=== PATIENT | female | born 1965 | race Caucasian/White ===

== ENCOUNTER → 2017-03-17 | Outpatient (CLI) | payer BC ==
[~2017-03-17] MED LIST: ASCA500 PO; CALC500C70 PO; CLC100X PO; OMEP40CA41 PO; PREG150C PO; PREG75CA PO; TOPI25TA55 PO; TOPI25TA99 PO; ULT/50 PO; VENL-271 PO
--- NOTE | 2017-03-18 08:21 | MAMMOGRAPHY REPORT ---
BILATERAL DIGITAL SCREENING MAMMOGRAM TOMOSYNTHESIS WITH CAD: 03/17/2017 CLINICAL HISTORY: Routine screening. Patient has no complaints. TECHNIQUE: Breast tomosynthesis in addition to standard 2D mammography was performed. Current study was also evaluated with a Computer Aided Detection (CAD) system. COMPARISON: Comparison is made to exams dated: 03/14/2016 mammogram, 03/13/2015 mammogram, 02/09/2014 amanda mogram, 03/29/2013 mammogram, 03/25/2012 mammogram, and 03/25/2011 mammogram - [facility]. BREAST COMPOSITION: There are scattered areas of fibroglandular density in both breasts. FINDINGS: There are a few benign-appearing punctate microcalcifications in the breasts. No suspiciou s mass, architectural distortion or cluster of suspicious microcalcifications is seen. IMPRESSION: ACR BI-RADS CATEGORY 1: NEGATIVE There is no mammographic evidence of malignancy. A 1 year screening mammogram is recommended. The pa tient will receive written notification of the results. Approximately 10% of breast cancers are not detected with mammography. A negative mammographic report should not delay biopsy if a clinically suggestive mass is present. Devi Ash M.D. ay/:03/17/2017 17:58:29 Apprentice Electrician: Roseanne MAX(Alley)(M), [facility] letter sent: Normal 1/2 BI-RADS Code: ACR BI-RADS Category 1: Negative
== END | disposition home or self-care (01) ==
LOC: C.MAMM 13:52
PROVIDERS: ATTEND Nurse Practitioner Adult Health
DX: Z12.31 Encounter for screening mammogram for malignant neoplasm of breast (principal)

== ENCOUNTER → 2017-04-10 | Outpatient (CLI) | payer BC ==
[2017-04-10 14:37] LABS: BASO % 0.1 %; BASO ABS # 0.01 K/uL (0-0.2); COMPLETE YES; EOS % 0.5 %; HEMATOCRIT 40.3 % (37-47); IG% 0.1 %; LYMPH % 38.8 %; LYMPH ABS # 2.87 K/uL (1.2-3.4); MEAN CELL VOLUME 89.6 fL (80-100); MEAN CORPUSCULAR HEMOGLOBIN 29.3 pg (25-34); MEAN CORPUSCULAR HGB CONC 32.8 g/dl (32-36); MEAN PLATELET VOLUME 11.6 fL (7.4-10.4); MONO % 7.2 %; NEUT % 53.3 %; PLATELET COUNT 256 K/uL (130-400); WHITE BLOOD COUNT 7.39 K/uL (4.8-10.8)
[2017-04-10 15:03] LABS: ALT/SGPT 17 U/L (12-78); BLOOD UREA NITROGEN 15 mg/dl (7-18); BUN/CREATININE RATIO 18.5 (10-20); CALCIUM 9.2 mg/dl (8.5-10.1); CARBON DIOXIDE 28 mmol/L (21-32); CHLORIDE 107 mmol/L (98-107); CREATININE 0.79 mg/dl (0.60-1.20); GLUCOSE 77 mg/dl (70-99); POTASSIUM 4.3 mmol/L (3.5-5.1); SODIUM 141 mmol/L (136-145)
[2017-04-10 15:06] LABS: ALB/GLOB RATIO 0.9 (0.9-2); ALKALINE PHOSPHATASE 79 U/L (45-117); AST/SGOT 12 U/L (15-37)
== END | disposition home or self-care (01) ==
LOC: C.LAB 12:40
PROVIDERS: ATTEND Physician Assistant
DX: R53.83 Other fatigue (principal); E55.9 Vitamin D deficiency, unspecified

== ENCOUNTER → 2017-06-10 | Outpatient (CLI) | payer BC ==
[2017-06-10 12:47] LABS: TOTAL IRON BINDING CAPACITY 246 mcg/dl (250-450)
[2017-06-10 13:49] LABS: LYME DISEASE AB IGM NEG (NEG)
[2017-06-10 13:52] LABS: LYME DISEASE AB IGG NEG (NEG)
[2017-06-14 23:12] LABS: ACETYLCHOLINE RECEP MODULATING 11; ACETYLCHOLINE RECEPT BLOCKING <15 % inhibit (<15); ANTI-CENTROMERE AB <1.0 NEG AI (<1.0 NEG); ANTI-SS-A 3.8 POS AI (<1.0 NEG); ANTI-SS-B <1.0 NEG AI (<1.0 NEG); DNA ds CRITHIDIA NEGATIVE (NEGATIVE); MICROSOMAL AB 1 IU/ML (<9); RECEPTOR BINDING AB <0.30 nmol/L (<=0.30); Sm Antibody <1.0 NEG AI (<1.0 NEG)
== END | disposition home or self-care (01) ==
LOC: C.LAB 11:38
PROVIDERS: ATTEND Psychiatry & Neurology Neurology
DX: M79.7 Fibromyalgia (principal); R53.83 Other fatigue; M62.81 Muscle weakness (generalized)

== ENCOUNTER 2023-04-21 15:23 | Observation (INO) ==
--- NOTE | 2023-04-21 15:51 | Emergency Department Note ---
Impression & Plan Stroke-like symptom, Acute right-sided muscle weakness ED Provider Note NAME: TOBIN SANCHEZ AGE: 58 SEX: F : 1965 ARRIVES VIA: Walk-In INFORMANT: Patient, ED PROVIDER(S): Isaac Martinez DO CHIEF COMPLAINT: Strokelike symptoms HPI: The patient is a 58-year-old female who presented to the emergency department for an evaluation of strokelike symptoms. The patient started noticing symptoms of right-sided weakness over the course of the last week. Initially the symptoms were intermittent but they have since become constant. The patient went to see her family doctor today and was sent to the emergency department. The patient denies having any chest pain or difficulty breathing. She did note some right lower quadrant abdominal pain prior to coming to the emergency department. The patient has a history of migraine and at times has had right-sided weakness with migraine but at this time she denies having any significant headache. She has been compliant with her outpatient medications. She does not take any blood thinners. ROS: See above HPI for pertinent positives & negatives. A total of 10 systems reviewed and were otherwise negative. PAST MEDICAL HISTORY: See Below PAST SURGICAL HISTORY: See Below FAMILY HISTORY: See Below SOCIAL HISTORY: See Below HOME MEDICATIONS: See Below ALLERGIES: See Below VITALS: See Below PHYSICAL EXAMINATION: GENERAL: Patient is awake alert in no acute distress patient is resting comfortably and showing no signs of anxiety EYES: The conjunctivae are clear. The pupils are round and reactive. EARS, NOSE, MOUTH AND THROAT: The nose is without any evidence of any deformity. NECK: The neck is nontender and supple. RESPIRATORY: Normal respiratory effort is noted there is no evidence of wheezing rhonchi or rales CARDIOVASCULAR: Regular rate and rhythm noted there no murmurs rubs or gallops normal S1 normal S2. GASTROINTESTINAL: The abdomen is soft. There is right lower quadrant tenderness to palpation which is moderate. MUSCULOSKELETAL/EXTREMITIES: There is no evidence of gross deformity full range of motion is noted in the hips and shoulders. SKIN: There is no obvious evidence of any rash. There are no petechiae, pallor or cyanosis noted. NEUROLOGIC: Patient is awake alert and oriented x3. 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 There was a drift noted in the right upper extremity. The patient is able to hold the left leg off the bed for greater than 5 seconds however the right leg drops to the bed after only 2 to 3 seconds. There is no facial droop. Speech was clear. MEDICAL DECISION MAKING: The patient is a 58-year-old female who presented to the emergency department for an evaluation of right-sided weakness. The patient has a history of migraine headache and has had right-sided weakness associated with migraine in the past however today she has no headache but has ongoing right-sided weakness since yesterday afternoon. The patient presented to the emergency department at the request of her primary care physician. She has reproducible right-sided weakness on my exam. I discussed patient's laboratory and radiographic studies with her. She also had abdominal pain for this reason further radiographic studies were obtained. Given the patient's findings and ongoing symptoms I discussed her condition [facility]. The patient may require further work-up or possibly evaluation by neurology to further evaluate cause your symptoms. Triage Nursing notes reviewed. Prior medical records reviewed Vital Signs: reviewed and remarkable for elevated blood pressure. Differential diagnosis: Infection, dehydration, metabolic abnormality, hypo/hyperglycemia, electrolyte disturbance, anemia, hypoxia, cardiac sources, intracerebral event, toxicologic, neurologic, as well as other pathologies. ER treatment provided: See below Diagnostics interpreted by me: ECG: EKG was obtained in the emergency department. My interpretation is normal sinus rhythm at 80 bpm. There is no ectopy. There is no acute ST segment abnormalities noted. LVH was suggested by voltage criteria. This was compared to a tracing from January 22, 2019. No changes were noted. Cardiac Monitoring: An order was placed for continuous cardiac monitoring. The monitor shows a rate of 75 bpm with sinus rhythm. Laboratory studies: As stated above and show below. Imaging studies: See below. Radiographic imaging was reviewed by myself Consultation(s): I discussed this case with Kari who is on-call for the [facility]. Past Med/Surg History Medical History (Updated 04/21/23 @ 21:27 by Isaac Martinez DO) Abnormal laboratory test result Basilar artery migraine Cervical radiculopathy at C8 Chronic migraine without aura Depression with anxiety Fatigue Fibromyalgia GERD (gastroesophageal reflux disease) Memory loss Migraine Muscle weakness Pain in extremity Sacral radiculopathy Vitamin D deficiency Surgical History H/O Spinal surgery History of total hysterectomy Hx of tonsillectomy Family History Other Breast cancer Heart disease Social History Smoking Status: Never smoker Hx Alcohol Use: No Hx Substance Use: No Preferred Language: Puerto [place]ican Communication Ability: Effective Environmental Compliance Officer Required: No Beliefs That Will Affect Care: None Current Living Situation: Spouse Current Living Situation Comment: Lives with and son Other Information That Helps Us Care for You: No Feels Safe at Home: Yes Safety Concerns: Feels Safe At This Time Assistive Devices: None Allergies Allergies Allergy/AdvReac Type Severity Reaction Status Date / Time milnacipran Allergy Unknown UNKNOWN Verified 04/21/23 17:16 morphine Allergy Unknown unknown Verified 04/21/23 17:16 codeine AdvReac Mild NAUSEA/VOMI Verified 04/21/23 17:16 TING Home Meds Home Medications Medication Instructions Recorded Confirmed omeprazole 40 mg capsule,delayed 40 mg PO DAILY 01/22/19 04/21/23 release pregabalin 225 mg capsule (Lyrica) 225 mg PO BID 01/22/19 04/21/23 ascorbate calcium-bioflavonoid 500 1 tab PO DAILY 04/28/19 04/21/23 mg-200 mg tablet (Federica-C with Bioflavonoids) calcium carbonate 500 mg-vitamin 1 tab PO BID 05/04/19 04/21/23 D3 5 mcg (200 unit) tablet (Os-Jose Daniel 500 + D3) baclofen 20 mg tablet 10 mg PO HS 04/21/23 04/21/23 docusate sodium 100 mg capsule 100 mg PO DAILY PRN Constipation 04/21/23 04/21/23 (Colace) indomethacin 50 mg capsule 50 mg PO DAILY PRN Migraine 04/21/23 04/21/23 Headache Previous Rx's Medication Instructions Recorded venlafaxine 150 mg See Rx Instructions .Route 11/03/19 capsule,extended release 24 hr .COMPLEX #90 caps Results & Data (ED) Vital Signs Vital Signs - 24 hr 04/21/23 15:24 04/21/23 15:40 04/21/23 15:40 Temperature 36.8 C Temperature Source Temporal Artery Scan Pulse Rate 85 79 Pulse Rate [Bilateral] 83 Pulse Rhythm [Bilateral] Regular Respiratory Rate 16 18 Blood Pressure 129/84 Blood Pressure [Left Arm] 147/102 H Blood Pressure Mean 99 Blood Pressure Mean [Left Arm] 117 Pulse Oximetry 98 100 100 Oxygen Delivery Method Room Air Room Air Room Air Sepsis Recent Fever Within 48 Hours No Sepsis New/Unexplained Change in Mental Status N/A Sepsis Action Taken by Nursing No Action Required 04/21/23 15:48 04/21/23 17:23 Temperature Temperature Source Pulse Rate 76 Pulse Rate [Bilateral] 65 Pulse Rhythm [Bilateral] Regular Respiratory Rate 12 Blood Pressure Blood Pressure [Left Arm] 142/93 H Blood Pressure Mean Blood Pressure Mean [Left Arm] 109 Pulse Oximetry 99 Oxygen Delivery Method Sepsis Recent Fever Within 48 Hours Sepsis New/Unexplained Change in Mental Status Sepsis Action Taken by Custodial Medications Current Medication List: was personally reviewed by me Laboratory Data Attestation: I reviewed the patient's lab results. 04/21/23 15:39 04/21/23 15:39 Lab Results 04/21/23 04/21/23 04/21/23 Range/Units 15:39 15:39 15:39 WBC 7.93 (4.8-10.8) K/ul RBC 4.64 (4.20-5.40) M/uL Hgb 13.7 (12.0-16.0) g/dl POC Hgb (12.0-16.0) g/dl Hct 41.3 (37.0-47.0) % POC Hct (37-47) % MCV 89.0 (80.0-100.0) fL MCH 29.5 (25.0-34.0) pg MCHC 33.2 (32.0-36.0) g/dL RDW Std Deviation 39.5 (36.4-46.3) fL RDW Coeff of Delmi 12.1 (11.5-14.5) % Plt Count 246 (130-400) K/uL MPV 11.9 (9.4-12.4) fL PT 10.8 (9.0-12.0) Seconds INR 1.0 (0.9-1.1) APTT 27.9 (21.0-31.0) Seconds PTT Ratio 1.0 POC Sodium (135-144) mmol/L Sodium 139 (136-145) mmol/L POC Potassium (3.3-5.0) mmol/L Potassium 4.0 (3.5-5.1) mmol/L POC Chloride (101-112) mmol/L Chloride 103 (98-107) mmol/L Carbon Dioxide 30 (21-32) mmol/L POC Total CO2 (24-31) mmol/L Anion Gap 6 (3-11) POC Anion Gap (16-25) mmol/L POC BUN (7-18) mg/dl BUN 18 (6-23) mg/dl Creatinine 0.81 (0.6-1.2) mg/dl POC Creatinine (0.6-1.3) mg/dl Est Cr Clr Drug Dosing 77.9 ml/min Est GFR ( Amer) 93.4 ml/min Est GFR (Non-Af Amer) 80.6 ml/min BUN/Creatinine Ratio 22.2 H (10-20) Glucose 92 (70-99(Fasting)) mg/dl POC Glucose (other) (70-99) mg/dl Calcium 9.2 (8.6-10.3) mg/dl POC Ioniz Calcium Marco (1.12-1.32) mmol/l Magnesium 2.2 (1.7-2.4) mg/dl Total Bilirubin 0.4 (0.2-1.0) mg/dl AST 16 (13-39) U/L ALT 10 (7-52) U/L Alkaline Phosphatase 70 (34-104) U/L Total Protein 7.8 (6.0-8.3) gm/dl Albumin 4.2 (3.4-5.0) gm/dl Globulin 3.6 (2.5-4.0) gm/dl Albumin/Globulin Ratio 1.2 (0.9-2) SARS-CoV-2, RNA, NAAT (NEGATIVE) 04/21/23 04/21/23 Range/Units 16:03 17:30 WBC (4.8-10.8) K/ul RBC (4.20-5.40) M/uL Hgb (12.0-16.0) g/dl POC Hgb 13.6 (12.0-16.0) g/dl Hct (37.0-47.0) % POC Hct 40 (37-47) % MCV (80.0-100.0) fL MCH (25.0-34.0) pg MCHC (32.0-36.0) g/dL RDW Std Deviation (36.4-46.3) fL RDW Coeff of Delmi (11.5-14.5) % Plt Count (130-400) K/uL MPV (9.4-12.4) fL PT (9.0-12.0) Seconds INR (0.9-1.1) APTT (21.0-31.0) Seconds PTT Ratio POC Sodium 139 (135-144) mmol/L Sodium (136-145) mmol/L POC Potassium 4.1 (3.3-5.0) mmol/L Potassium (3.5-5.1) mmol/L POC Chloride 101 (101-112) mmol/L Chloride (98-107) mmol/L Carbon Dioxide (21-32) mmol/L POC Total CO2 28 (24-31) mmol/L Anion Gap (3-11) POC Anion Gap 14.0 L (16-25) mmol/L POC BUN 17 (7-18) mg/dl BUN (6-23) mg/dl Creatinine (0.6-1.2) mg/dl POC Creatinine 0.8 (0.6-1.3) mg/dl Est Cr Clr Drug Dosing ml/min Est GFR ( Amer) ml/min Est GFR (Non-Af Amer) ml/min BUN/Creatinine Ratio (10-20) Glucose (70-99(Fasting)) mg/dl POC Glucose (other) 95 (70-99) mg/dl Calcium (8.6-10.3) mg/dl POC Ioniz Calcium Marco 1.17 (1.12-1.32) mmol/l Magnesium (1.7-2.4) mg/dl Total Bilirubin (0.2-1.0) mg/dl AST (13-39) U/L ALT (7-52) U/L Alkaline Phosphatase (34-104) U/L Total Protein (6.0-8.3) gm/dl Albumin (3.4-5.0) gm/dl Globulin (2.5-4.0) gm/dl Albumin/Globulin Ratio (0.9-2) SARS-CoV-2, RNA, NAAT NEGATIVE (NEGATIVE) Administered Medications Discontinued Medications Ioversol (Optiray 320 125ml) 118 ml IV ONCE ONE Stop: 04/21/23 16:30 Last Admin: 04/21/23 16:29 Dose: 118 ml Documented By: NESHA Imaging Data Attestation: I personally reviewed and interpreted this imaging study as follows: My Impression: CT of the brain without contrast was obtained in the emergency department. My interpretation is no intracranial hemorrhage or mass effect, final report below. Radiologist's Impression: Head CT 04/21/23 15:[address] OF THE BRAIN; CT ANGIOGRAM OF THE BRAIN; CT ANGIOGRAM OF THE NECK CLINICAL HISTORY: Neurological deficit. Stroke like symptoms. COMPARISON STUDY: CT angiogram of the head and neck dated 01/22/2019. TECHNIQUE: Unenhanced axial CT scan of the brain is performed. Subsequently, following the IV administration of 118 of Optiray 320, CT angiogram of the head and neck was performed from the aortic arch to the vertex. Images are reviewed in the axial, sagittal, and coronal planes. 3-D MIPS images are created and assessed. IV contrast was administered without complication. All measurements were calculated based on NASCET criteria. A dose lowering technique was utilized adhering to the principles of ALARA. CT DOSE: 2944.78 mGy.cm FINDINGS: Brain parenchyma: The brain parenchyma is normal in appearance. There is no hemorrhage, mass effect, or evidence of acute territorial ischemia by CT criteria. There is no evidence of enhancing mass lesion on the angiogram phase images. The ventricles, sulci, and cisterns are normal in configuration. Rodriguez-white matter differentiation is preserved. No extra-axial fluid collection is seen. Thoracic aorta: Visualized portions of the thoracic aorta are normal in caliber. The aortic arch demonstrates standard 3-vessel anatomy. Right carotid arterial system: The right common carotid artery is widely patent, as are the right internal and external carotid arteries. There is tortuosity of the distal ICA. Left carotid arterial system: The left common carotid artery is widely patent, as are the left internal and external carotid arteries. Vertebral arteries: The vertebral arteries are widely patent bilaterally and codominant. Subclavian arteries: Widely patent bilaterally. Intracranial vasculature: The internal carotid arteries are patent at the skull base, as are the anterior and middle cerebral arteries bilaterally. The vertebrobasilar system and posterior cerebral arteries are widely patent. The vertebral arteries are codominant. There is no aneurysm, high-grade stenosis, or focal vessel cut off seen throughout the intracranial circulation. Jugular veins: Patent bilaterally. Dural sinuses: Patent. Lung apices: Partially visualized upper lobe lung parenchyma appears clear. Soft tissues: The visualized pharyngeal soft tissues are normal in appearance noting angiographic phase technique. The oropharyngeal airway appears widely patent. The thyroid gland is mildly enlarged and heterogeneous. The salivary glands are normal in appearance. No cervical lymphadenopathy is seen. Skeletal structures: The calvarium appears intact. The cervical spine is within normal limits. Orbits: The bony orbits are intact. Orbital contents are normal as visualized. Sinuses and mastoids: The paranasal sinuses are clear. The mastoid air cells are well pneumatized. IMPRESSION: 1. There is no hemorrhage, mass effect, or evidence of acute territorial ischemia by CT criteria. 2. Unremarkable CT angiogram of the brain. 3. Unremarkable CT angiogram of the neck. ACT 112: Negative or not required by law. Electronically signed by: Mirza Comer M.D. 04/21/2023 5:02 PM Abdomen/Pelvis CT 04/21/23 15:46 CT SCAN OF THE ABDOMEN AND PELVIS WITH IV CONTRAST CLINICAL HISTORY: Right lower quadrant abdominal pain. COMPARISON STUDY: No priors. TECHNIQUE: Following the IV administration of 118 cc of Optiray 320, CT scan of the abdomen and pelvis is performed from the lung bases to the proximal femora. Images are reviewed in the axial, sagittal, and coronal planes. IV contrast was administered without complication. A dose lowering technique was utilized adhering to the principles of ALARA. FINDINGS: Lung bases: The heart is normal in size and without pericardial effusion. The lung bases are clear. Liver: The contrast-enhanced liver is normal in size, contour, and attenuation. There is no intrahepatic biliary ductal dilatation. The hepatic veins and portal veins are patent. Gallbladder: Adenomyomatosis is suggested in the fundal region. The gallbladder is otherwise normal as imaged. Spleen: Normal in size and attenuation. Pancreas: Unremarkable. Adrenal glands: Unremarkable. Kidneys: The contrast enhanced kidneys are normal in size and without hydronephrosis. The kidneys enhance symmetrically. Abdominal vasculature: The abdominal aorta is normal in course and caliber. Bowel: There is moderate colonic fecal retention. No bowel obstruction is seen. The appendix is well-visualized and normal. Peritoneum: There is no intraperitoneal free air or abdominal ascites. Lymphadenopathy: None. Pelvic viscera: The bladder is normal as visualized. The uterus is surgically absent. No adnexal lesion is seen. Skeletal structures: A large hemangioma is seen in the body of L2. Postsurgical change is noted at the lumbosacral junction. No lytic or blastic lesions are seen. IMPRESSION: No acute infectious or inflammatory findings are identified in the abdomen or pelvis. ACT 112: Negative or not required by law. Electronically signed by: Mirza Comer M.D. 04/21/2023 5:05 PM Chest CTA 04/21/23 15:46 CT ANGIOGRAPHY OF THE CHEST, PULMONARY EMBOLUS PROTOCOL CLINICAL HISTORY: Atypical chest pain. Evaluate for pulmonary embolus. COMPARISON STUDY: Chest radiograph January 22, 2019. TECHNIQUE: Following IV administration of 118 mL of Optiray, helical axial images of the chest were obtained utilizing the pulmonary embolus protocol. Maximal intensity projections and sagittal and coronal reformats were viewed on an independent 3D workstation. IV contrast was administered without complication. Automated exposure control was utilized for the study. A dose lowering technique was utilized adhering to the principles of ALARA. FINDINGS: No pulmonary emboli are identified. There is no thoracic aortic dissection. Size of the heart is normal. There is no pericardial effusion. No enlarged thoracic lymph nodes are present. No pneumothorax or pleural effusion present. There is no consolidation to suggest pneumonia. There are no suspicious pulmonary nodules. No acute fractures are identified within the visualized bony thorax. The abdomen and pelvis CT will be reported separately. IMPRESSION: 1. No pulmonary emboli identified. 2. No acute intrathoracic findings. ACT 112: Negative or not required by law. Electronically signed by: Tommie Jean-Baptiste M.D. 04/21/2023 5:03 PM Head CTA 04/21/23 15:[address] OF THE BRAIN; CT ANGIOGRAM OF THE BRAIN; CT ANGIOGRAM OF THE NECK CLINICAL HISTORY: Neurological deficit. Stroke like symptoms. COMPARISON STUDY: CT angiogram of the head and neck dated 01/22/2019. TECHNIQUE: Unenhanced axial CT scan of the brain is performed. Subsequently, following the IV administration of 118 of Optiray 320, CT angiogram of the head and neck was performed from the aortic arch to the vertex. Images are reviewed in the axial, sagittal, and coronal planes. 3-D MIPS images are created and assessed. IV contrast was administered without complication. All measurements were calculated based on NASCET criteria. A dose lowering technique was utilized adhering to the principles of ALARA. CT DOSE: 2944.78 mGy.cm FINDINGS: Brain parenchyma: The brain parenchyma is normal in appearance. There is no hemorrhage, mass effect, or evidence of acute territorial ischemia by CT criteria. There is no evidence of enhancing mass lesion on the angiogram phase images. The ventricles, sulci, and cisterns are normal in configuration. Rodriguez- white matter differentiation is preserved. No extra-axial fluid collection is seen. Thoracic aorta: Visualized portions of the thoracic aorta are normal in caliber. The aortic arch demonstrates standard 3-vessel anatomy. Right carotid arterial system: The right common carotid artery is widely patent, as are the right internal and external carotid arteries. There is tortuosity of the distal ICA. Left carotid arterial system: The left common carotid artery is widely patent, as are the left internal and external carotid arteries. Vertebral arteries: The vertebral arteries are widely patent bilaterally and codominant. Subclavian arteries: Widely patent bilaterally. Intracranial vasculature: The internal carotid arteries are patent at the skull base, as are the anterior and middle cerebral arteries bilaterally. The vertebrobasilar system and posterior cerebral arteries are widely patent. The vertebral arteries are codominant. There is no aneurysm, high-grade stenosis, or focal vessel cut off seen throughout the intracranial circulation. Jugular veins: Patent bilaterally. Dural sinuses: Patent. Lung apices: Partially visualized upper lobe lung parenchyma appears clear. Soft tissues: The visualized pharyngeal soft tissues are normal in appearance noting angiographic phase technique. The oropharyngeal airway appears widely patent. The thyroid gland is mildly enlarged and heterogeneous. The salivary glands are normal in appearance. No cervical lymphadenopathy is seen. Skeletal structures: The calvarium appears intact. The cervical spine is within normal limits. Orbits: The bony orbits are intact. Orbital contents are normal as visualized. Sinuses and mastoids: The paranasal sinuses are clear. The mastoid air cells are well pneumatized. IMPRESSION: 1. There is no hemorrhage, mass effect, or evidence of acute territorial ischemia by CT criteria. 2. Unremarkable CT angiogram of the brain. 3. Unremarkable CT angiogram of the neck. ACT 112: Negative or not required by law. Electronically signed by: Mirza Comer M.D. 04/21/2023 5:02 PM Neck CTA 04/21/23 15:[address] OF THE BRAIN; CT ANGIOGRAM OF THE BRAIN; CT ANGIOGRAM OF THE NECK CLINICAL HISTORY: Neurological deficit. Stroke like symptoms. COMPARISON STUDY: CT angiogram of the head and neck dated 01/22/2019. TECHNIQUE: Unenhanced axial CT scan of the brain is performed. Subsequently, following the IV administration of 118 of Optiray 320, CT angiogram of the head and neck was performed from the aortic arch to the vertex. Images are reviewed in the axial, sagittal, and coronal planes. 3-D MIPS images are created and assessed. IV contrast was administered without complication. All measurements were calculated based on NASCET criteria. A dose lowering technique was utilized adhering to the principles of ALARA. CT DOSE: 2944.78 mGy.cm FINDINGS: Brain parenchyma: The brain parenchyma is normal in appearance. There is no hemorrhage, mass effect, or evidence of acute territorial ischemia by CT criteria. There is no evidence of enhancing mass lesion on the angiogram phase images. The ventricles, sulci, and cisterns are normal in configuration. Rodriguez- white matter differentiation is preserved. No extra-axial fluid collection is seen. Thoracic aorta: Visualized portions of the thoracic aorta are normal in caliber. The aortic arch demonstrates standard 3-vessel anatomy. Right carotid arterial system: The right common carotid artery is widely patent, as are the right internal and external carotid arteries. There is tortuosity of the distal ICA. Left carotid arterial system: The left common carotid artery is widely patent, as are the left internal and external carotid arteries. Vertebral arteries: The vertebral arteries are widely patent bilaterally and codominant. Subclavian arteries: Widely patent bilaterally. Intracranial vasculature: The internal carotid arteries are patent at the skull base, as are the anterior and middle cerebral arteries bilaterally. The vertebrobasilar system and posterior cerebral arteries are widely patent. The vertebral arteries are codominant. There is no aneurysm, high-grade stenosis, or focal vessel cut off seen throughout the intracranial circulation. Jugular veins: Patent bilaterally. Dural sinuses: Patent. Lung apices: Partially visualized upper lobe lung parenchyma appears clear. Soft tissues: The visualized pharyngeal soft tissues are normal in appearance noting angiographic phase technique. The oropharyngeal airway appears widely patent. The thyroid gland is mildly enlarged and heterogeneous. The salivary glands are normal in appearance. No cervical lymphadenopathy is seen. Skeletal structures: The calvarium appears intact. The cervical spine is within normal limits. Orbits: The bony orbits are intact. Orbital contents are normal as visualized. Sinuses and mastoids: The paranasal sinuses are clear. The mastoid air cells are well pneumatized. IMPRESSION: 1. There is no hemorrhage, mass effect, or evidence of acute territorial ischemia by CT criteria. 2. Unremarkable CT angiogram of the brain. 3. Unremarkable CT angiogram of the neck. ACT 112: Negative or not required by law. Electronically signed by: Mirza Comer M.D. 04/21/2023 5:02 PM Discharge Plan Visit Data Chief Complaint: TIA Symptoms Stated Complaint: WEAKNESS IN RIGHT SIDE, DIZZY, ED Provider: Isaac Martinez Discharge Problem: Stroke-like symptom, Acute right-sided muscle weakness Patient Disposition: Admitted As Inpatient Discharge Instructions Interventions: ED Discharge Assessment Last Done: 04/21/23 19:30
[2023-04-21 16:01] LABS: Hematocrit (blood only) 41.3 % (37.0-47.0); Hemoglobin 13.7 g/dl (12.0-16.0); Mean Corpuscular Hemoglobin 29.5 pg (25.0-34.0); Mean Corpuscular Hgb Conc 33.2 g/dL (32.0-36.0); Mean Platelet Volume 11.9 fL (9.4-12.4); Platelet Count 246 K/uL (130-400); RDW Coefficient of Variation 12.1 % (11.5-14.5); RDW Standard Deviation 39.5 fL (36.4-46.3); Red Blood Count 4.64 M/uL (4.20-5.40); White Blood Count 7.93 K/ul (4.8-10.8)
[2023-04-21 16:15] LABS: iSTAT Creatinine 0.8 mg/dl (0.6-1.3); iSTAT Hemoglobin 13.6 g/dl (12.0-16.0); iSTAT Ionized Calcium 1.17 mmol/l (1.12-1.32); iSTAT Potassium 4.1 mmol/L (3.3-5.0)
[2023-04-21 16:20] LABS: Albumin Globulin Ratio 1.2 (0.9-2); Albumin Level 4.2 gm/dl (3.4-5.0); BUN Creatinine Ratio 22.2 (10-20); Bilirubin,Total 0.4 mg/dl (0.2-1.0); Calcium 9.2 mg/dl (8.6-10.3); Creatinine Clr Calc Pharmacy 77.9 ml/min; Est GFR (African American) 93.4 ml/min; Est GFR (Non-African American) 80.6 ml/min; Globulin 3.6 gm/dl (2.5-4.0); Magnesium 2.2 mg/dl (1.7-2.4); Total Protein 7.8 gm/dl (6.0-8.3)
[2023-04-21] MEDS ORDERED: OPTIRAY 320 125ml IV ONE (16:29)
[2023-04-21 16:33] LABS: Partial Thromboplastin Time 27.9 Seconds (21.0-31.0); Prothrombin Time 10.8 Seconds (9.0-12.0)
--- NOTE | 2023-04-21 17:04 | CT Scan Report ---
UNENHANCED CT OF THE BRAIN; CT ANGIOGRAM OF THE BRAIN; CT ANGIOGRAM OF THE NECK CLINICAL HISTORY: Neurological deficit. Stroke like symptoms. COMPARISON STUDY: CT angiogram of the head and neck dated 01/22/2019. TECHNIQUE: Unenhanced axial CT scan of the brain is performed. Subsequently, following the IV adminis tration of 118 of Optiray 320, CT angiogram of the head and neck was performed from the aortic arch t o the vertex. Images are reviewed in the axial, sagittal, and coronal planes. 3-D MIPS images are cre ated and assessed. IV contrast was administered without complication. All measurements were calculate d based on NASCET criteria. A dose lowering technique was utilized adhering to the principles of ALA RA. CT DOSE: 2944.78 mGy.cm FINDINGS: Brain parenchyma: The brain parenchyma is normal in appearance. There is no hemorrhage, mass effect, or evidence of acute territorial ischemia by CT criteria. There is no evidence of enhancing mass lesi on on the angiogram phase images. The ventricles, sulci, and cisterns are normal in configuration. Gr ay-white matter differentiation is preserved. No extra-axial fluid collection is seen. Thoracic aorta: Visualized portions of the thoracic aorta are normal in caliber. The aortic arch demo nstrates standard 3-vessel anatomy. Right carotid arterial system: The right common carotid artery is widely patent, as are the right int ernal and external carotid arteries. There is tortuosity of the distal ICA. Left carotid arterial system: The left common carotid artery is widely patent, as are the left international trade manager al and external carotid arteries. Vertebral arteries: The vertebral arteries are widely patent bilaterally and codominant. Subclavian arteries: Widely patent bilaterally. Intracranial vasculature: The internal carotid arteries are patent at the skull base, as are the ante rior and middle cerebral arteries bilaterally. The vertebrobasilar system and posterior cerebral karolina marck are widely patent. The vertebral arteries are codominant. There is no aneurysm, high-grade steno sis, or focal vessel cut off seen throughout the intracranial circulation. Jugular veins: Patent bilaterally. Dural sinuses: Patent. Lung apices: Partially visualized upper lobe lung parenchyma appears clear. Soft tissues: The visualized pharyngeal soft tissues are normal in appearance noting angiographic pha se technique. The oropharyngeal airway appears widely patent. The thyroid gland is mildly enlarged an d heterogeneous. The salivary glands are normal in appearance. No cervical lymphadenopathy is seen. Skeletal structures: The calvarium appears intact. The cervical spine is within normal limits. Orbits: The bony orbits are intact. Orbital contents are normal as visualized. Sinuses and mastoids: The paranasal sinuses are clear. The mastoid air cells are well pneumatized. IMPRESSION: 1. There is no hemorrhage, mass effect, or evidence of acute territorial ischemia by CT criteria. 2. Unremarkable CT angiogram of the brain. 3. Unremarkable CT angiogram of the neck. ACT 112: Negative or not required by law. Electronically signed by: Mirza Comer M.D. 04/21/2023 5:02 PM
--- NOTE | 2023-04-21 17:05 | CT Scan Report ---
CT ANGIOGRAPHY OF THE CHEST, PULMONARY EMBOLUS PROTOCOL CLINICAL HISTORY: Atypical chest pain. Evaluate for pulmonary embolus. COMPARISON STUDY: Chest radiograph January 22, 2019. TECHNIQUE: Following IV administration of 118 mL of Optiray, helical axial images of the chest were o btained utilizing the pulmonary embolus protocol. Maximal intensity projections and sagittal and cor onal reformats were viewed on an independent 3D workstation. IV contrast was administered without co mplication. Automated exposure control was utilized for the study. A dose lowering technique was ut ilized adhering to the principles of ALARA. FINDINGS: No pulmonary emboli are identified. There is no thoracic aortic dissection. Size of the he art is normal. There is no pericardial effusion. No enlarged thoracic lymph nodes are present. No pne umothorax or pleural effusion present. There is no consolidation to suggest pneumonia. There are no s uspicious pulmonary nodules. No acute fractures are identified within the visualized bony thorax. The abdomen and pelvis CT will be reported separately. IMPRESSION: 1. No pulmonary emboli identified. 2. No acute intrathoracic findings. ACT 112: Negative or not required by law. Electronically signed by: Tommie Jean-Baptiste M.D. 04/21/2023 5:03 PM
--- NOTE | 2023-04-21 17:07 | CT Scan Report ---
CT SCAN OF THE ABDOMEN AND PELVIS WITH IV CONTRAST CLINICAL HISTORY: Right lower quadrant abdominal pain. COMPARISON STUDY: No priors. TECHNIQUE: Following the IV administration of 118 cc of Optiray 320, CT scan of the abdomen and pelv is is performed from the lung bases to the proximal femora. Images are reviewed in the axial, sagitta l, and coronal planes. IV contrast was administered without complication. A dose lowering technique w as utilized adhering to the principles of ALARA. FINDINGS: Lung bases: The heart is normal in size and without pericardial effusion. The lung bases are clear. Liver: The contrast-enhanced liver is normal in size, contour, and attenuation. There is no intrahepa tic biliary ductal dilatation. The hepatic veins and portal veins are patent. Gallbladder: Adenomyomatosis is suggested in the fundal region. The gallbladder is otherwise normal a s imaged. Spleen: Normal in size and attenuation. Pancreas: Unremarkable. Adrenal glands: Unremarkable. Kidneys: The contrast enhanced kidneys are normal in size and without hydronephrosis. The kidneys enh ance symmetrically. Abdominal vasculature: The abdominal aorta is normal in course and caliber. Bowel: There is moderate colonic fecal retention. No bowel obstruction is seen. The appendix is well -visualized and normal. Peritoneum: There is no intraperitoneal free air or abdominal ascites. Lymphadenopathy: None. Pelvic viscera: The bladder is normal as visualized. The uterus is surgically absent. No adnexal lesi on is seen. Skeletal structures: A large hemangioma is seen in the body of L2. Postsurgical change is noted at th e lumbosacral junction. No lytic or blastic lesions are seen. IMPRESSION: No acute infectious or inflammatory findings are identified in the abdomen or pelvis. ACT 112: Negative or not required by law. Electronically signed by: Mirza Comer M.D. 04/21/2023 5:05 PM
--- NOTE | 2023-04-21 18:27 | History & Physical Report ---
Date of Service April 21, 2023 Assessment & Plan (1) Dizziness: (2) Weakness: (3) Migraine: (4) Hemangioma: (5) Fibromyalgia: (6) Depression with anxiety: (7) GERD (gastroesophageal reflux disease): Plan This is a 58yo F with PMH of complex hemiplegic migraines, fibromyalgia, chronic neck pain, GERD and other medical problems listed below who presents with dizziness on and off for past week but increased frequency with associated R sided weakness and feeling off-balance. Dizziness Fall at home Right sided weakness Symptomatic x 1 week including fall 2/2 above, hit head CT head with no hemorrhage, mass effect, or evidence of acute territorial ischemia by CT criteria. Unremarkable CT angiogram of the brain and neck MRI brain w/wo, echo with bubble study, PT/OT evaluations, neuro consult for possible TIA vs complex migraine variant History of complex, hemiplegic migraines Longstanding history of complex migraines, most days, can involve weakness of R side Typical migraines involve R sided weakness and pain and resolve withing 1-[address] Herrera of [facility] Continue venlafaxine for prophylactic, indomethacin PRN, Bacofen HS for underlying neck pathology Lumbar spine hemangioma CT abd/pelvis with a large hemangioma is seen in the body of L2. Postsurgical change is noted from remote spinal surgery Obtaining MRI for better visualization Fibromyalgia Continue venlafaxine GERD Continue PPI DVT Ppx: SQ lovenox Code status: FULL PCP: Ed Dispo: Admitted to med/tele Patient seen in collaboration with Dr. Ramirez. Please see addendum. I spent a total of 75 minutes coordinating, documenting, and providing care for this patient excluding time spent in the performance of separately billed services. History of Present Illness Chief Complaint: dizziness, R sided weakness Primary Care Provider: Ema Ward MD This is a 58yo F with PMH of complex hemiplegic migraines, fibromyalgia, chronic neck pain, GERD and other medical problems listed below who presents with dizziness on and off for past week but increased frequency with associated R sided weakness and feeling off-balance. Also endorsed abdominal pressure on R b ut turned into pain earlier today. Fell turning too quickly on Thursday night and fell over. Denies LOC but hit her head on the floor. Occasional palpitations. No F/C, CP, SOB, N/V, abdominal pain, dysuria, diarrhea or constipation. Has history of complex migraines and generally has R sided weakness but usually resolves within a day or so and is associated with pain. This weakness feels similar but is more pronounced and has lasted almost a full week. Was seen by PCP earlier this afternoon and was sent in for further stroke evaluation. Follows with Dr. Villasenor of [facility] neurology in [place]. Denies history of known CVA. Allergies Allergy/AdvReac Type Severity Reaction Status Date / Time milnacipran Allergy Unknown UNKNOWN Verified 04/21/23 17:16 morphine Allergy Unknown unknown Verified 04/21/23 17:16 codeine AdvReac Mild NAUSEA/VOMI Verified 04/21/23 17:16 TING Home Medications Medication Instructions Recorded Confirmed Type omeprazole 40 mg capsule,delayed 40 mg PO DAILY 01/22/19 04/21/23 History release pregabalin 225 mg capsule (Lyrica) 225 mg PO BID 01/22/19 04/21/23 History ascorbate calcium-bioflavonoid 500 1 tab PO DAILY 04/28/19 04/21/23 History mg-200 mg tablet (Federica-C with Bioflavonoids) calcium carbonate 500 mg-vitamin 1 tab PO BID 05/04/19 04/21/23 History D3 5 mcg (200 unit) tablet (Os-Jose Daniel 500 + D3) venlafaxine 150 mg See Rx Instructions .Route 11/03/19 04/21/23 Rx capsule,extended release 24 hr .COMPLEX #90 caps baclofen 20 mg tablet 10 mg PO HS 04/21/23 04/21/23 History docusate sodium 100 mg capsule 100 mg PO DAILY PRN Constipation 04/21/23 04/21/23 History (Colace) indomethacin 50 mg capsule 50 mg PO DAILY PRN Migraine 04/21/23 04/21/23 History Headache Past Med/Surg History Medical History (Updated 04/21/23 @ 19:42 by Tricia Ledesma PA-C) Abnormal laboratory test result Basilar artery migraine Cervical radiculopathy at C8 Chronic migraine without aura Depression with anxiety Fatigue Fibromyalgia GERD (gastroesophageal reflux disease) Memory loss Migraine Muscle weakness Pain in extremity Sacral radiculopathy Vitamin D deficiency Surgical History H/O Spinal surgery History of total hysterectomy Hx of tonsillectomy Family History Other Breast cancer Heart disease Social History Smoking Status: Never smoker Preferred Language: Chinese Feels Safe at Home: Yes Review of Systems Review of Systems: At least ten systems reviewed and negative except as noted in the HPI. Physical Exam Physical Exam: Please see Dr. Ramirez's addendum for physical exam. Results & Data Results & Data Vital Signs (Past 12 Hours) Vital Signs Temp Pulse Pulse Resp BP BP Pulse Ox 04/21/23 17:23 65 12 142/93 H 99 04/21/23 15:48 76 04/21/23 15:40 79 100 04/21/23 15:40 83 18 147/102 H 100 04/21/23 15:24 36.8 C 85 16 129/84 98 O2 Del Method 04/21/23 17:23 04/21/23 15:48 04/21/23 15:40 Room Air 04/21/23 15:40 Room Air 04/21/23 15:24 Room Air Laboratory Results Short CBC 04/21/23 Range/Units 15:39 WBC 7.93 (4.8-10.8) K/ul Hgb 13.7 (12.0-16.0) g/dl Hct 41.3 (37.0-47.0) % Plt Count 246 (130-400) K/uL BMP 04/21/23 15:39 Sodium 139 Potassium 4.0 Chloride 103 Carbon Dioxide 30 BUN 18 Creatinine 0.81 Glucose 92 Calcium 9.2 Liver Function 04/21/23 Range/Units 15:39 Total Bilirubin 0.4 (0.2-1.0) mg/dl AST 16 (13-39) U/L ALT 10 (7-52) U/L Alkaline Phosphatase 70 (34-104) U/L Albumin 4.2 (3.4-5.0) gm/dl Diagnostic Findings Head CT 04/21/23 15:[address] OF THE BRAIN; CT ANGIOGRAM OF THE BRAIN; CT ANGIOGRAM OF THE NECK CLINICAL HISTORY: Neurological deficit. Stroke like symptoms. COMPARISON STUDY: CT angiogram of the head and neck dated 01/22/2019. TECHNIQUE: Unenhanced axial CT scan of the brain is performed. Subsequently, following the IV administration of 118 of Optiray 320, CT angiogram of the head and neck was performed from the aortic arch to the vertex. Images are reviewed in the axial, sagittal, and coronal planes. 3-D MIPS images are created and assessed. IV contrast was administered without complication. All measurements were calculated based on NASCET criteria. A dose lowering technique was utilized adhering to the principles of ALARA. CT DOSE: 2944.78 mGy.cm FINDINGS: Brain parenchyma: The brain parenchyma is normal in appearance. There is no hemorrhage, mass effect, or evidence of acute territorial ischemia by CT criteria. There is no evidence of enhancing mass lesion on the angiogram phase images. The ventricles, sulci, and cisterns are normal in configuration. Rodriguez- white matter differentiation is preserved. No extra-axial fluid collection is seen. Thoracic aorta: Visualized portions of the thoracic aorta are normal in caliber. The aortic arch demonstrates standard 3-vessel anatomy. Right carotid arterial system: The right common carotid artery is widely patent, as are the right internal and external carotid arteries. There is tortuosity of the distal ICA. Left carotid arterial system: The left common carotid artery is widely patent, as are the left internal and external carotid arteries. Vertebral arteries: The vertebral arteries are widely patent bilaterally and codominant. Subclavian arteries: Widely patent bilaterally. Intracranial vasculature: The internal carotid arteries are patent at the skull base, as are the anterior and middle cerebral arteries bilaterally. The vertebrobasilar system and posterior cerebral arteries are widely patent. The vertebral arteries are codominant. There is no aneurysm, high-grade stenosis, or focal vessel cut off seen throughout the intracranial circulation. Jugular veins: Patent bilaterally. Dural sinuses: Patent. Lung apices: Partially visualized upper lobe lung parenchyma appears clear. Soft tissues: The visualized pharyngeal soft tissues are normal in appearance noting angiographic phase technique. The oropharyngeal airway appears widely patent. The thyroid gland is mildly enlarged and heterogeneous. The salivary glands are normal in appearance. No cervical lymphadenopathy is seen. Skeletal structures: The calvarium appears intact. The cervical spine is within normal limits. Orbits: The bony orbits are intact. Orbital contents are normal as visualized. Sinuses and mastoids: The paranasal sinuses are clear. The mastoid air cells are well pneumatized. IMPRESSION: 1. There is no hemorrhage, mass effect, or evidence of acute territorial ischemia by CT criteria. 2. Unremarkable CT angiogram of the brain. 3. Unremarkable CT angiogram of the neck. ACT 112: Negative or not required by law. Electronically signed by: Mirza Comer M.D. 04/21/2023 5:02 PM Abdomen/Pelvis CT 04/21/23 15:46 CT SCAN OF THE ABDOMEN AND PELVIS WITH IV CONTRAST CLINICAL HISTORY: Right lower quadrant abdominal pain. COMPARISON STUDY: No priors. TECHNIQUE: Following the IV administration of 118 cc of Optiray 320, CT scan of the abdomen and pelvis is performed from the lung bases to the proximal femora. Images are reviewed in the axial, sagittal, and coronal planes. IV contrast was administered without complication. A dose lowering technique was utilized adhering to the principles of ALARA. FINDINGS: Lung bases: The heart is normal in size and without pericardial effusion. The lung bases are clear. Liver: The contrast-enhanced liver is normal in size, contour, and attenuation. There is no intrahepatic biliary ductal dilatation. The hepatic veins and portal veins are patent. Gallbladder: Adenomyomatosis is suggested in the fundal region. The gallbladder is otherwise normal as imaged. Spleen: Normal in size and attenuation. Pancreas: Unremarkable. Adrenal glands: Unremarkable. Kidneys: The contrast enhanced kidneys are normal in size and without hydronephrosis. The kidneys enhance symmetrically. Abdominal vasculature: The abdominal aorta is normal in course and caliber. Bowel: There is moderate colonic fecal retention. No bowel obstruction is seen. The appendix is well-visualized and normal. Peritoneum: There is no intraperitoneal free air or abdominal ascites. Lymphadenopathy: None. Pelvic viscera: The bladder is normal as visualized. The uterus is surgically absent. No adnexal lesion is seen. Skeletal structures: A large hemangioma is seen in the body of L2. Postsurgical change is noted at the lumbosacral junction. No lytic or blastic lesions are seen. IMPRESSION: No acute infectious or inflammatory findings are identified in the abdomen or pelvis. ACT 112: Negative or not required by law. Electronically signed by: Mirza Comer M.D. 04/21/2023 5:05 PM Chest CTA 04/21/23 15:46 CT ANGIOGRAPHY OF THE CHEST, PULMONARY EMBOLUS PROTOCOL CLINICAL HISTORY: Atypical chest pain. Evaluate for pulmonary embolus. COMPARISON STUDY: Chest radiograph January 22, 2019. TECHNIQUE: Following IV administration of 118 mL of Optiray, helical axial images of the chest were obtained utilizing the pulmonary embolus protocol. Maximal intensity projections and sagittal and coronal reformats were viewed on an independent 3D workstation. IV contrast was administered without complication. Automated exposure control was utilized for the study. A dose lowering technique was utilized adhering to the principles of ALARA. FINDINGS: No pulmonary emboli are identified. There is no thoracic aortic dissection. Size of the heart is normal. There is no pericardial effusion. No enlarged thoracic lymph nodes are present. No pneumothorax or pleural effusion present. There is no consolidation to suggest pneumonia. There are no suspicious pulmonary nodules. No acute fractures are identified within the visualized bony thorax. The abdomen and pelvis CT will be reported separately. IMPRESSION: 1. No pulmonary emboli identified. 2. No acute intrathoracic findings. ACT 112: Negative or not required by law. Electronically signed by: Tommie Jean-Baptiste M.D. 04/21/2023 5:03 PM Head CTA 04/21/23 15:[address] OF THE BRAIN; CT ANGIOGRAM OF THE BRAIN; CT ANGIOGRAM OF THE NECK CLINICAL HISTORY: Neurological deficit. Stroke like symptoms. COMPARISON STUDY: CT angiogram of the head and neck dated 01/22/2019. TECHNIQUE: Unenhanced axial CT scan of the brain is performed. Subsequently, following the IV administration of 118 of Optiray 320, CT angiogram of the head and neck was performed from the aortic arch to the vertex. Images are reviewed in the axial, sagittal, and coronal planes. 3-D MIPS images are created and assessed. IV contrast was administered without complication. All measurements were calculated based on NASCET criteria. A dose lowering technique was utilized adhering to the principles of ALARA. CT DOSE: 2944.78 mGy.cm FINDINGS: Brain parenchyma: The brain parenchyma is normal in appearance. There is no hemorrhage, mass effect, or evidence of acute territorial ischemia by CT criteria. There is no evidence of enhancing mass lesion on the angiogram phase images. The ventricles, sulci, and cisterns are normal in configuration. Rodriguez- white matter differentiation is preserved. No extra-axial fluid collection is seen. Thoracic aorta: Visualized portions of the thoracic aorta are normal in caliber. The aortic arch demonstrates standard 3-vessel anatomy. Right carotid arterial system: The right common carotid artery is widely patent, as are the right internal and external carotid arteries. There is tortuosity of the distal ICA. Left carotid arterial system: The left common carotid artery is widely patent, as are the left internal and external carotid arteries. Vertebral arteries: The vertebral arteries are widely patent bilaterally and codominant. Subclavian arteries: Widely patent bilaterally. Intracranial vasculature: The internal carotid arteries are patent at the skull base, as are the anterior and middle cerebral arteries bilaterally. The vertebrobasilar system and posterior cerebral arteries are widely patent. The vertebral arteries are codominant. There is no aneurysm, high-grade stenosis, or focal vessel cut off seen throughout the intracranial circulation. Jugular veins: Patent bilaterally. Dural sinuses: Patent. Lung apices: Partially visualized upper lobe lung parenchyma appears clear. Soft tissues: The visualized pharyngeal soft tissues are normal in appearance noting angiographic phase technique. The oropharyngeal airway appears widely patent. The thyroid gland is mildly enlarged and heterogeneous. The salivary glands are normal in appearance. No cervical lymphadenopathy is seen. Skeletal structures: The calvarium appears intact. The cervical spine is within normal limits. Orbits: The bony orbits are intact. Orbital contents are normal as visualized. Sinuses and mastoids: The paranasal sinuses are clear. The mastoid air cells are well pneumatized. IMPRESSION: 1. There is no hemorrhage, mass effect, or evidence of acute territorial ischemia by CT criteria. 2. Unremarkable CT angiogram of the brain. 3. Unremarkable CT angiogram of the neck. ACT 112: Negative or not required by law. Electronically signed by: Mirza Comer M.D. 04/21/2023 5:02 PM Neck CTA 04/21/23 15:[address] OF THE BRAIN; CT ANGIOGRAM OF THE BRAIN; CT ANGIOGRAM OF THE NECK CLINICAL HISTORY: Neurological deficit. Stroke like symptoms. COMPARISON STUDY: CT angiogram of the head and neck dated 01/22/2019. TECHNIQUE: Unenhanced axial CT scan of the brain is performed. Subsequently, following the IV administration of 118 of Optiray 320, CT angiogram of the head and neck was performed from the aortic arch to the vertex. Images are reviewed in the axial, sagittal, and coronal planes. 3-D MIPS images are created and assessed. IV contrast was administered without complication. All measurements were calculated based on NASCET criteria. A dose lowering technique was utilized adhering to the principles of ALARA. CT DOSE: 2944.78 mGy.cm FINDINGS: Brain parenchyma: The brain parenchyma is normal in appearance. There is no hemorrhage, mass effect, or evidence of acute territorial ischemia by CT criteria. There is no evidence of enhancing mass lesion on the angiogram phase images. The ventricles, sulci, and cisterns are normal in configuration. Rodriguez- white matter differentiation is preserved. No extra-axial fluid collection is seen. Thoracic aorta: Visualized portions of the thoracic aorta are normal in caliber. The aortic arch demonstrates standard 3-vessel anatomy. Right carotid arterial system: The right common carotid artery is widely patent, as are the right internal and external carotid arteries. There is tortuosity of the distal ICA. Left carotid arterial system: The left common carotid artery is widely patent, as are the left internal and external carotid arteries. Vertebral arteries: The vertebral arteries are widely patent bilaterally and codominant. Subclavian arteries: Widely patent bilaterally. Intracranial vasculature: The internal carotid arteries are patent at the skull base, as are the anterior and middle cerebral arteries bilaterally. The vertebrobasilar system and posterior cerebral arteries are widely patent. The vertebral arteries are codominant. There is no aneurysm, high-grade stenosis, or focal vessel cut off seen throughout the intracranial circulation. Jugular veins: Patent bilaterally. Dural sinuses: Patent. Lung apices: Partially visualized upper lobe lung parenchyma appears clear. Soft tissues: The visualized pharyngeal soft tissues are normal in appearance noting angiographic phase technique. The oropharyngeal airway appears widely patent. The thyroid gland is mildly enlarged and heterogeneous. The salivary glands are normal in appearance. No cervical lymphadenopathy is seen. Skeletal structures: The calvarium appears intact. The cervical spine is within normal limits. Orbits: The bony orbits are intact. Orbital contents are normal as visualized. Sinuses and mastoids: The paranasal sinuses are clear. The mastoid air cells are well pneumatized. IMPRESSION: 1. There is no hemorrhage, mass effect, or evidence of acute territorial ischemia by CT criteria. 2. Unremarkable CT angiogram of the brain. 3. Unremarkable CT angiogram of the neck. ACT 112: Negative or not required by law. Electronically signed by: Mirza Comer M.D. 04/21/2023 5:02 PM Supervising Physician Co-Signing Physician Notes Pt is a 58 y/o F with hx of Fibromyalgia, hemiplegic migraine, Neck pain, Barretts esophagus admitted for worsening dizziness with R sided weakness. PE: NAD, well developed HEENT: EOMI, no facial asymmetry Lungs: CTA, no wheezing or crackles Cardiac: Normal S1/S2, no murmur Abd: ND, NT, soft Neuro: CN II-XII intact, PERRLA, mild weakness of the R UE and LE, intact sensation Psych: AAOx3, normal affect A/P: Dizziness with R side weakness: -per pt her current weakness is similar to the R side weakness she experience during her migraine attack but persisting longer -CTA head and neck: no acute finding - due to neurological deficit: will do stroke work up --- echo, MRI spine, and aspirin 324mg -symptoms are likely 2/2 migraine -Neurology consultation - start pt on statin - will obtain PT/OT CT Abd showed large hemangioma at L2 -unsure abt prior hx - will obtain MRI L spine Other chronic conditions: plan as above Agree A/P by Tricia Ledesma PA-C
[2023-04-21] MEDS ORDERED: INDOMETHACIN 25 MG CAP PO PRN (19:25)
[2023-04-21] MEDS ORDERED: DOCUSATE SODIUM 100 MG CAP PO PRN (19:25)
[2023-04-21] MEDS ORDERED: ASPIRIN CHEW 324 MG PO STA (19:26)
[2023-04-21] MEDS ORDERED: ONDANSETRON INJ 2 MG/ML 2 ML VIAL IV PRN (19:48)
[2023-04-21] MEDS ORDERED: ACETAMINOPHEN 325 MG TAB PO PRN (19:48)
[2023-04-21] MEDS ORDERED: PHARMACIST DISCHARGE MED REC CONSULT PRN (19:48)
[2023-04-21] MEDS ORDERED: POLYETHYLENE (MIRALAX) 17 GM PACK PO PRN (19:48)
[2023-04-21] MEDS ORDERED: BACLOFEN 10 MG TAB PO SCH (21:00)
[2023-04-21] MEDS ORDERED: ENOXAPARIN INJ 40 MG/0.4 ML SYR SQ SCH (21:00)
[2023-04-21] MEDS ORDERED: GADOBUTROL 65ML VIAL IV ONE (21:45)
[2023-04-21] MEDS: PREGABALIN 75 MG CAP PO SCH (22:12)
[2023-04-21] MEDS: CALCIUM 600MG + VIT D 400 IU TAB PO SCH (22:13)
--- NOTE | 2023-04-21 22:21 | Magnetic Resonance Report ---
Exam(s): MRI HEAD W/WO Contrast IV Amt: Gadavist 8mL IV EXAM: MR Head Without and With Intravenous Contrast CLINICAL HISTORY: Reason for exam: stroke eval. TECHNIQUE: Magnetic resonance images of the head/brain without and with intravenous contrast in multiple planes. CONTRAST: Patient received Gadavist 8mL IV of IV contrast COMPARISON: Done earlier the same day. FINDINGS: Brain: No mass-effect or acute infarct. No acute or chronic hemorrhage. Minimal, chronic, nonspecific white matter disease. Asymmetric pituitary gland, predominantly in the left sella, a finding of uncertain significance. No abnormal signal or enhancement. Dedicated pituitary MRI may be considered as indicated for further evaluation. Ventricles: No hydrocephalus or midline shift. Bones/joints: No calvarial lesions. Soft tissues: No scalp hematoma. Sinuses: Clear. Mastoid air cells: No mastoid effusion. IMPRESSION: 1. Asymmetric pituitary gland, predominantly located to the left of midline, finding of uncertain significance. If there is no prior comparison MRI, dedicated pituitary MRI with and without contrast may be considered for further evaluation. 2. Minimal, chronic, nonspecific white matter disease. 3. No abnormal enhancement, acute infarct, bleed, or acute intracranial abnormality. Electronically signed by: Ania Eid M.D. 04/21/23 22:19 PM
--- NOTE | 2023-04-21 22:36 | Magnetic Resonance Report ---
Exam(s): MRI L SPINE W/WO Contrast IV Amt: Gadavist 8mL IV EXAM: MR Lumbar Spine Without and With Intravenous Contrast CLINICAL HISTORY: Reason for exam: large L2 hemangioma. TECHNIQUE: Magnetic resonance images of the lumbar spine without and with intravenous contrast in multiple planes. Metal artifact from surgical hardware L5-S1. Mild motion artifact. CONTRAST: Patient received Gadavist 8mL IV of IV contrast COMPARISON: CT abdomen pelvis done earlier FINDINGS: Vertebrae: Redemonstration of large L2 vertebral hemangioma, and incidental finding. No abnormal enhancement. Anterior and posterior fusion hardware at L5-S1 with metal artifact limiting detail. No marrow edema or compression deformity Spinal cord: Unremarkable. Normal signal. No abnormal enhancement. Soft tissues: Unremarkable. DISCS/SPINAL CANAL/NEURAL FORAMINA: L1-L2: Unremarkable. No significant disc disease. No stenosis. L2-L3: Mild disc bulge. No stenosis. L3-L4: Mild disc bulge. No stenosis. L4-L5: Mild disc bulge. No stenosis. L5-S1: Postoperative change with bilateral pedicle screws as well as anterior hardware. No obvious disc herniation or spinal stenosis. No abnormal enhancement. Other: No disc herniation or central spinal stenosis. Moderate to severe facet hypertrophy throughout. IMPRESSION: 1. Redemonstration of a large L2 vertebral hemangioma, incidental finding. 2. Degenerative and postsurgical change at L5-S1, no complicating features. 3. Mild degenerative disc disease L2-3, L3-4 and L4-5, and moderate to severe facet hypertrophy. 4. No disc herniation or central spinal stenosis. Electronically signed by: Ania Eid M.D. 04/21/23 22:35 PM
[2023-04-22 07:47] LABS: BUN Creatinine Ratio 19.1 (10-20); Calcium 9.3 mg/dl (8.6-10.3); Chol HDL Ratio 3.5 (0-5); Creatinine Clr Calc Pharmacy 93.3 ml/min; Est GFR (African American) 112.5 ml/min; Est GFR (Non-African American) 97.1 ml/min; Potassium 4.5 mmol/L (3.5-5.1)
[2023-04-22 07:49] LABS: Hematocrit (blood only) 38.6 % (37.0-47.0); Hemoglobin 12.9 g/dl (12.0-16.0); Mean Corpuscular Hemoglobin 29.9 pg (25.0-34.0); Mean Corpuscular Hgb Conc 33.4 g/dL (32.0-36.0); Mean Corpuscular Volume 89.4 fL (80.0-100.0); Mean Platelet Volume 12.2 fL (9.4-12.4); Platelet Count 200 K/uL (130-400); RDW Coefficient of Variation 12.1 % (11.5-14.5); RDW Standard Deviation 39.4 fL (36.4-46.3); Red Blood Count 4.32 M/uL (4.20-5.40); White Blood Count 6.67 K/ul (4.8-10.8)
[2023-04-22 07:59] LABS: Estimated Average Glucose 103 mg/dl; Hemoglobin A1C 5.2 % (4.5-5.6)
--- NOTE | 2023-04-22 08:14 | Neurology Consultation ---
Date of Consultation April 22, 2023 Assessment & Plan (1) Complicated migraine: (2) Stroke-like symptom: Plan 58-year-old female with a history of complicated migraine, episodes seem characteristic for hemiplegic migraine although she relays a history of negative genetic testing and no family history of same. She presents with a slightly different, more prolonged episode of right-sided weakness over the past week, complicated by a fall over the weekend. She currently has very mild right-sided weakness, sparing the face. She does not have a headache. She has had extensive neuroimaging evaluation including CT of the head, CT angiography of the head and neck, and brain MRI. No significant abnormalities identified although she does have some asymmetry of the pituitary gland, not likely clinically significant. It is interesting that her unusual headache episodes began after undergoing lumbar spinal fusion surgery in 2006. The surgery was, however, apparently successful and she complains of only mild residual intermittent low back pain. She denies experiencing any significant surgical complications. Her symptoms are not postural and do not resemble low CSF pressure headache. Follow-up with results of this morning's echocardiogram. It would not be unreasonable to prescribe daily low-dose aspirin, 81 mg/day given the possibility that her current presentation could be consistent with a small ischemic stroke. Again, however, her brain MRI is negative in this regard. It is not unreasonable to continue with atorvastatin 40 mg/day as prescribed. Goal LDL 70 or less. I do note her maternal history of coronary artery disease with multiple stents. Patient may continue with venlafaxine for complicated migraine prevention. She may continue with baclofen and indomethacin for acute headache treatment. However, I would consider discontinuing indomethacin for acute headache treatment going forward given the above possibility of a small ischemic stroke. I also wonder if another trial of verapamil would be useful for complicated migraine prevention in this patient. She will discuss any potential changes to her migraine medication regimen with Dr. Villasenor at a follow-up appointment that is scheduled for next month. No further immediate recommendations. History of Present Illness Reason for Consultation: TIA vs complicated migraine Requesting Physician: Baltazar Attending Physician: Yao Sanz MD History of Present Illness The patient is a 58-year-old female with an established diagnosis of complicated migraine, she follows with Dr. Villasenor, a migraine specialist affiliated with [facility], she has previously seen Dr. Vilma Bernal, local [facility] neurology. She indicates that she began experiencing complicated migraine in 2007. Her episodes are characterized by a prolonged prodrome of lethargy and confusion followed by right-sided weakness, typically beginning in the leg, followed by the arm, sometimes the face. These episodes are typically resolved the following day after sleep. She sometimes experiences an associated global headache with associated cervicalgia. She has been prescribed a variety of medications for prevention and recalls trials of topiramate, Depakote, verapamil and Ajovy. She has also tried Ubrelvy for acute treatment. She is currently prescribed venlafaxine for prevention, and a combination of indomethacin and baclofen for acute treatment. She is also on Lyrica. History notable for lumbar spinal fusion, L5-S1, done at [facility] in 2006. She reports a good recovery from her spinal surgery without complications. She still experiences some low back pain but no significant radicular symptoms. History also notable for De León's esophagitis and does find that the indomethacin mildly aggravates this condition. She denies a history of asthma or kidney stones. Her mother has a history of coronary artery disease, although no family history of migraine or hemiplegic migraine. She recalls having genetic testing for hemiplegic migraine with Dr. Villasenor. This testing was negative and she was thus considered to have "complicated migraine." She denies a history of seizure or syncope. No known history of stroke. She presented to the emergency department yesterday for further assessment of right-sided weakness occurring over the previous week in an intermittent fashion, but becoming more persistent. This episode was a bit different from her typical migraines. No associated prodrome of lethargy or confusion. No associated headache. She did have an associated fall over the weekend and struck her head on the floor. No loss of consciousness. No residual concussive symptoms. She is afebrile. Her blood pressure was modestly elevated yesterday, improved this morning. A CT of the head including CTA of the head and neck was unremarkable. A brain MRI was negative for acute process. There was an incidental note of asymmetry of the pituitary gland with recommendation for a follow-up dedicated pituitary MRI. A lumbar spine MRI was completed as well which revealed degenerative and postsurgical changes at L5-S1 and mild degenerative disc disease at several other levels without evidence of disc herniation or central spinal stenosis. I did review the images pertaining to the above studies and agree with the findings as described by radiology. I also note the presence of minimal microvascular ischemic change on MRI of the brain. There is no Chiari malformation or hydrocephalus. An electrocardiogram completed yesterday revealed a normal sinus rhythm. She did have an echocardiogram completed this morning, results pending at this time. Labs reviewed as well. CBC unremarkable. Comprehensive metabolic panel unremarkable. Hemoglobin A1c 5.2. Triglycerides 115, cholesterol 219, LDL 134, VLDL 23, HDL 62. Allergies Allergy/AdvReac Type Severity Reaction Status Date / Time milnacipran Allergy Unknown UNKNOWN Verified 04/21/23 17:16 morphine Allergy Unknown unknown Verified 04/21/23 17:16 codeine AdvReac Mild NAUSEA/VOMI Verified 04/21/23 17:16 TING Home Medications Medication Instructions Recorded Confirmed Type omeprazole 40 mg capsule,delayed 40 mg PO DAILY 01/22/19 04/21/23 History release pregabalin 225 mg capsule (Lyrica) 225 mg PO BID 01/22/19 04/21/23 History ascorbate calcium-bioflavonoid 500 1 tab PO DAILY 04/28/19 04/21/23 History mg-200 mg tablet (Federica-C with Bioflavonoids) calcium carbonate 500 mg-vitamin 1 tab PO BID 05/04/19 04/21/23 History D3 5 mcg (200 unit) tablet (Os-Jose Daniel 500 + D3) venlafaxine 150 mg See Rx Instructions .Route 11/03/19 04/21/23 Rx capsule,extended release 24 hr .COMPLEX #90 caps baclofen 20 mg tablet 10 mg PO HS 04/21/23 04/21/23 History docusate sodium 100 mg capsule 100 mg PO DAILY PRN Constipation 04/21/23 04/21/23 History (Colace) indomethacin 50 mg capsule 50 mg PO DAILY PRN Migraine 04/21/23 04/21/23 History Headache Patient History Medical History Abnormal laboratory test result Basilar artery migraine Cervical radiculopathy at C8 Chronic migraine without aura Depression with anxiety Fatigue Fibromyalgia GERD (gastroesophageal reflux disease) Memory loss Migraine Muscle weakness Pain in extremity Sacral radiculopathy Vitamin D deficiency Surgical History H/O Spinal surgery History of total hysterectomy Hx of tonsillectomy Family History Other Breast cancer Heart disease Social History Smoking Status: Never smoker Hx Alcohol Use: No Hx Substance Use: No Preferred Language: Slovenian Communication Ability: Effective 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 Operator Required: No Beliefs That Will Affect Care: None Current Living Situation: Spouse Current Living Situation Comment: Lives with and son Other Information That Helps Us Care for You: No Feels Safe at Home: Yes Safety Concerns: Feels Safe At This Time Assistive Devices: None Review of Systems Constitutional: no fever and no chills Eyes: no blind spots and no diplopia Ear, Nose, Mouth, Throat: no hearing loss Respiratory: no cough and no dyspnea Cardiovascular: no chest pain and no palpitations Gastrointestinal: no nausea and no vomiting Genitourinary: no dysuria Musculoskeletal: as per Subjective / HPI, + back pain and + neck pain Integumentary: no rash and no lesions Neurologic: as per Subjective / HPI Psychiatric: no depression and no anxiety Hematologic / Lymphatic: no easy bleeding and no easy bruising Exam (Neuro) Constitutional: well developed; no acute distress Eyes: normal visual bowen by confrontation, PERRL and EOM intact bilaterally Cardiovascular: Vessels: no carotid bruit Neurologic: Oriented to:: Person, Place and Time Memory: Short Term Intact and Remote Intact Attention: Span Intact and Concentration Intact Speech Fluency: negative Dysarthria or Dysfluency Speech Aphasia: negative Aphasia Fund of Knowledge: Current Events, Past History and Vocabulary Cranial Nerves: Normal II, III, IV, , V, VII, VIII, IX, X, XI and XII Motor Strength: Weakness Upper Extremities (right) and Weakness Lower Extremities (right) Motor Tone: Normal Lower Extremities and Normal Upper Extremities Muscle Bulk/Involuntary Movements: No Involuntary Movements; negative Muscle Atrophy Sensation: Light Touch Intact, Pain/Temperature Intact, Vibration Intact and Proprioception Intact Coordination: Finger-Nose Abnormal Laterality: Right and Heel-Alexis Abnormal Laterality: Right Deep Tendon Reflexes: Rt Triceps: 2+, Lt Triceps: 2+, Rt Biceps: 2+, Lt Biceps: 2+, Rt Brachioradialis: 2+, Lt Brachioradialis: 2+, Rt Patellar: 2+, Lt Patellar: 2+, Rt Ankle: 2+ and Lt Ankle: 2+ Special Tests: negative Babinski Present Details: Gait cannot be safely tested at this time. Patient exhibits very mild weakness for the right arm and leg currently with relatively reduced movement initiation and slightly reduced facility for the right hand. No associated facial droop. Results & Data Vital Signs (Past 12 Hours) Vital Signs Temp Pulse Pulse Resp BP Pulse Ox O2 Del Method 04/22/23 03:30 36.9 C 74 18 111/69 98 Room Air 04/22/23 01:09 71 04/21/23 22:57 83 04/21/23 21:32 Room Air Coding Level of Care Code 72898 INT INP/OBS CARE 2/55MIN Diagnoses Complicated migraine G43.109 Stroke-like symptom R29.90
[2023-04-22] MEDS: CALCIUM 600MG + VIT D 400 IU TAB PO SCH (08:17)
[2023-04-22] MEDS: PREGABALIN 75 MG CAP PO SCH (08:17)
[2023-04-22] MEDS ORDERED: PANTOprazole 40 MG TAB PO SCH (09:00)
[2023-04-22] MEDS ORDERED: ATORVASTATIN 40 MG TAB PO SCH (09:00)
[2023-04-22] MEDS ORDERED: VENLAFAXINE HCL XR 150 MG CAPXR PO SCH (09:00)
[2023-04-22] MEDS ORDERED: NON-FORMULARY MEDICATION (Ascorbate Calcium-Bioflavonoid [Ester-C With Bioflavonoids] 500- PO SCH (09:00)
--- NOTE | 2023-04-22 14:44 | Electrocardiogram Report ---
Test Reason : Blood Pressure : / mmHG Vent. Rate : 080 BPM Atrial Rate : 080 BPM P-R Int : 122 ms QRS Dur : 088 ms QT Int : 402 ms P-R-T Axes : 024 011 029 degrees QTc Int : 463 ms Normal sinus rhythm Normal ECG When compared with ECG of 22-JAN-2019 14:45, No significant change was found Confirmed by Isaac De ([id number]) on 04/22/2023 2:44:32 PM Referred By: Confirmed By:Isaac De
--- NOTE | 2023-04-22 15:02 | Discharge Summary ---
Date of Service April 22, 2023 Admission HPI Per Admitting Provider This is a 58yo F with PMH of complex hemiplegic migraines, fibromyalgia, chronic neck pain, GERD and other medical problems listed below who presents with dizziness on and off for past week but increased frequency with associated R sided weakness and feeling off-balance. Also endorsed abdominal pressure on R but turned into pain earlier today. Fell turning too quickly on Thursday night and fell over. Denies LOC but hit her head on the floor. Occasional palpitations. No F/C, CP, SOB, N/V, abdominal pain, dysuria, diarrhea or constipation. Has history of complex migraines and generally has R sided weakness but usually resolves within a day or so and is associated with pain. This weakness feels similar but is more pronounced and has lasted almost a full week. Was seen by PCP earlier this afternoon and was sent in for further stroke evaluation. Follows with Dr. Villasenor of [facility] neurology in [place]. Denies history of known CVA. Admission Exam Per Admitting Provider NAD, well developed HEENT: EOMI, no facial asymmetry Lungs: CTA, no wheezing or crackles Cardiac: Normal S1/S2, no murmur Abd: ND, NT, soft Neuro: CN II-XII intact, PERRLA, mild weakness of the R UE and LE, intact sensation Psych: AAOx3, normal affect Principal Diagnosis Complex migraine Strokelike symptoms Discharge Exam Constitutional: WD/WN, vitals as above, NAD, sitting up in bed, pleasant, conversing easily Respiratory: normal respiratory effort, lungs clear to auscultation, no wheeze, rales, rhonchi. Normal insp/exp effort, no accessory muscle use Cardiovascular: RRR, no murmur, no edema Vessels: no JVD or carotid bruit Chest: normal inspection of chest Abdomen: normal bowel sounds, soft, nontender, no hepatosplenomegaly Musculoskeletal: Strength on right lower extremity and is 4 x 5. Sensation intact. Skin: no rashes, warm and dry normal turgor Neurologic: PERRL, EOMI, accommodation nl, no face palsy, no dysarthria CN's II- XI intact bilaterally and moves all extremities Psychiatric: A+Ox3, euthymic affect Discharge Data Allergies Allergy/AdvReac Type Severity Reaction Status Date / Time milnacipran Allergy Unknown UNKNOWN Verified 04/21/23 17:16 morphine Allergy Unknown unknown Verified 04/21/23 17:16 codeine AdvReac Mild NAUSEA/VOMI Verified 04/21/23 17:16 TING Consultations 04/21/23 17:33 ED Decision to Admit Stat 04/21/23 19:27 Consult Neurology Routine Ordered Studies 04/21/23 15:28 CT head/brain wo con Stat 04/21/23 15:46 CT abd pelvis IV con only Stat CT angio chest PE protocol Stat CT angio head w con Stat CT angio neck with con Stat 04/21/23 18:39 MRI Lumbar Spine [MR lumbar spine wo/w con] Routine 04/21/23 19:48 MR brain wo/w con Routine Hospital Course (1) Dizziness: (2) Weakness: (3) Migraine: (4) Hemangioma: (5) Fibromyalgia: (6) Depression with anxiety: (7) GERD (gastroesophageal reflux disease): Plan This is a 58yo F with PMH of complex hemiplegic migraines, fibromyalgia, chronic neck pain, GERD and other medical problems listed below who presents with dizziness on and off for past week but increased frequency with associated R sided weakness and feeling off-balance. CT head without contrast was done which did not show any acute intracranial finding. CT angio head and neck did not show any abnormality. MRI brain without contrast showed asymmetric pituitary gland. Neurology consultation was done. She was recommended to start on aspirin 81 mg and Lipitor 40 mg for concern of small ischemic stroke. She was also recommended to follow-up with her neurologist as outpatient to discuss long-term management of migraine. Indomethacin was discontinued at discharge. Total Time Total Time Spent Total Time Spent (In Minutes): 35 Total Time Includes: Examination of the Patient, Discharge Planning, Medication Reconciliation, Communication With Other Providers and Other Discharge Plan Discharge Items Patient Disposition: Home - Self-Care Reason For Visit: R SIDED WEAKNESS, DIZZINESS, STROKE EVAL Discharge Diagnosis: Complicated migraine Strokelike symptoms Activity: Resume your previous activity Non-emergency contact: Primary Care Provider Call non-emergency contact if: you have any medication questions Follow-up/Referrals: Ema Ward MD [Primary Care Provider] - (Date & Time 04/27/2023 11:00 AM Provider Ema Ward MD [facility] ) Diet: Regular Addtl Attending Provider Instructions: You were admitted to the hospital with strokelike symptoms. MRI brain showed asymmetric pituitary gland, no abnormal enhancement, acute infarct, bleed or acute intracranial abnormality was seen. It was reviewed by neurology. Neurology recommended that you are started on aspirin 81 mg and Lipitor 40 mg as this episode could be consistent with a small ischemic stroke. He recommended discontinuing indomethacin for acute headache treatment going forward given the possibility of a small ischemic stroke. He also recommended you to follow-up with Dr. Villasenor to discuss potential changes to your migraine medication regimen. An appointment would be set up with your primary care doctor for next week. Pending Studies at Discharge: No Stand-Alone Forms: My [facility] [place], Smoking Cessation Medications and DC Order Prescriptions: New atorvastatin 40 mg Tablet 40 mg PO QAM Qty: 30 0RF aspirin 81 mg capsule 81 mg PO DAILY Qty: 30 0RF Continued venlafaxine 150 mg capsule,extended release 24hr See Rx Instructions .ROUTE .COMPLEX Qty: 90 3RF Dose Instruction: TAKE 1 CAPSULE BY MOUTH DAILY Rx Instructions: TAKE 1 CAPSULE BY MOUTH DAILY Federica-C with Bioflavonoids 500-200 mg tablet 1 tab PO DAILY omeprazole 40 mg capsule,delayed release(DR/EC) 40 mg PO DAILY pregabalin [Lyrica] 225 mg capsule 225 mg PO BID calcium carbonate-vitamin D3 [Os-Jose Daniel 500 + D3] 500 mg(1,250mg) -200 unit tablet 1 tab PO BID baclofen 20 mg tablet 10 mg PO HS docusate sodium [Colace] 100 mg Capsule 100 mg PO DAILY PRN (Reason: Constipation) Discontinued indomethacin 50 mg capsule 50 mg PO DAILY PRN (Reason: Migraine Headache) Rx Instructions: take at start of headache. may take up to three times in 24hr period Discharge Orders: Discharge Order (Routine); Ordered 04/22/23 Ordered By: Yao Sanz Admission Data Admit Date/Time: 04/21/23 18:30 Attending Provider: Yao Sanz Admit Provider: Candido Ramirez Primary Care Provider: Ema Ward Other Providers: Candido Ramirez ; Haile Spain Other Interventions: Discharge Summary Assessment (RN) Last Done: 04/22/23 14:04
== END 2023-04-22 14:45 | disposition home or self-care (01) | DRG 103 ==
LOC: ED 15:23 → INTOOBSV 18:30 → 2N 18:30 → SUATTDRO 18:30 → 2N 19:30

== ENCOUNTER 2024-04-02 04:41 | Inpatient (IN) ==
--- OUTSIDE RECORDS SUMMARY | 2024-04-02 04:47 | External Medical Summary | Summary of Care ---
Author Name Unknown Organization [facility] Address [address] [place] [address] Phone [phone] Care Team Providers Care Practice Clinician Name Role Phone Ed Ema Nicole MD Primary Care Provid er Reason for Visit * Reason Onset Date Comments Hospital Follow-Up 03/21/2024 OBI Encounter Details Date Type Department Care Team (Late st Contact Info) Description 03/21/[address] [phone] Christy Calvo, GABRIELA Hospital Follow-Up (OBI) Allergies Active Allergy Reactions Criticality Noted Date Comments Codeine 10/02/2021 Lamotrigine 12/07/2020 rash Milnacipran Hcl Rash Medium 08/06/2011 Savella Morphine 10/02/2021 documented as of this encounter (statuses as of 03/21/2024) Medications Medication Sig Dispensed Refills Start Date End Date Status XIAO-C 500 MG PO TABS Take 1 Tablet by mouth in the morning. Active COLACE 100 MG PO CAPSIndications:Unsp ecified constipation,[place] se Take 1 Capsule by mouth at bedtime. 60 Cap 5 01/24/2013 Active Famotidine 20 MG Oral Tablet (Pepcid) Take 1 Tablet by mouth at bedtime. 30 Tablet 2 12/18/2022 Active Baclofen 20 MG Oral TabletIndications:Ce rvicalgia TAKE 1 TABLET BY MOUTH AT BEDTIME AND 1/2 TABLET UP TO TWO TIMES A DAY NEEDED FOR NECK AND HEAD PAIN 120 Tablet 11 02/23/2023 Active Additional Information Patient taking differently: TAKE 1/2 TABLET BY MOUTH AT BEDTIME AND 1/2 TABLET UP TO TWO TIMES A DAY NEEDED FOR NECK AND HEAD PAIN, Informant: Wallet Card/List, Reported on 03/16/2024 Aspirin 81 MG Oral Tablet Delayed Release Take 1 Tablet by mouth in the morning. Active Nurtec 75 MG Oral Tablet Disintegrating (Rimegepant Sulfate) Take 1 Tablet by mouth as needed for Migraine. Active Pantoprazole Sodium 40 MG Oral Tablet Delayed Release (Protonix)Indication s:Nausea,Gastroesoph ageal reflux disease without esophagitis TAKE ONE TABLET BY MOUTH EVERY DAY 30 MINUTE BEFORE THE FIRST MEAL OF THE DAY. DO NOT CUT, CRUSH OR CHEW. 90 Tablet 2 06/23/2023 Active Riboflavin 400 MG Oral Tablet Take 1 Tablet by mouth in the morning. 07/22/2023 Active Pregabalin 225 MG Oral Capsule (Lyrica)Indications: Hemiplegic migraine without status migrainosus, not intractable TAKE 1 CAPSULE BY MOUTH TWICE DAILY every morning and before bedtime Do not start before December 23, 2023. 180 Capsule 1 12/23/2023 Active Atorvastatin Calcium 20 MG Oral Tablet (Lipitor)Indications :Hyperlipidemia LDL goal <70,Stroke-like episode,Hemiplegic migraine without status migrainosus, not intractable Take 1 Tablet by mouth in the morning. 90 Tablet 3 11/30/2023 Active Venlafaxine HCl ER 150 MG Oral Capsule Extended Release 24 Hour (Effexor XR)Indications:Hemip legic migraine without status migrainosus, not intractable TAKE 1 CAPSULE BY MOUTH ONCE DAILY every afternoon 90 Capsule 3 2024 Active Additional Information Patient taking differently: 150 mg Oral Daily(AM), Informant: Wallet Card/List, Reported on 03/16/2024 traZODone HCl 50 MG Oral Tablet (Desyrel)Indications :Primary insomnia Take 1 Tablet by mouth at bedtime. 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 Chronic rhinitis 06/16/2014 Venous insufficiency 03/24/2014 Sleep disturbance 01/24/2013 Menopause 01/24/2013 Migraine with aura and witho ut status migrainosus, not intractable 05/04/2008 Hyperlipidemia LDL goal <70 Gastroesophageal reflux Fibromyalgia documented as of this encounter (statuses as of 03/21/2024) Resolved Problems Problem Noted Date Diagnosed Date Resolved Date Sacral radiculopathy 08/06/2016 018 Obesity, Class I, BMI 30.0-3 4.9 (see actual BMI) 02/01/2016 06/05/2017 Overview: bmi= 32.80 02/01/16 Abdominal bloating 02/01/2016 7 Cough 12/08/2014 08/06/2016 Abdominal pain, right upper quadrant 07/11/2014 08/06/2016 Flank pain 07/11/2014 08/06/2016 Chronic sinusitis 06/16/2014 08/06/2016 Dysfunction of eustachian tube 06/16/2014 08/06/2016 Other chest pain 01/03/2014 06/05/2017 Obesity, Class I, BMI 30.0-3 4.9 (see actual BMI) 12/29/2013 06/05/2017 Overview: bmi= 34.07 12/29/13 Anxiety state 01/24/2013 08/06/2016 Headache, chronic daily 11/11/201101/04 DISC DIS S/P DISECTOMY WITH FIXATION 200708/06/2011 08/06/2011 DISC DIS L5-S1 DISECTOMY WITH FIXATION 200608/06/2011 02/04/2018 HEMIPLEGIC MIGRAINES 08/06/2011 013 Obesity, Class II, BMI 35-39 .9, isolated (see actual BMI) 03/18/2010 08/06/2016 Overview: Per Obesity Protocol, #19 Myalgia and myositis 06/25/2006 016 DISC DIS TJD-KJW-HILKGY 05/28/200611/2010 BACKACHE NOS 05/28/2006 08/06/2016 LUMB-LUMBOSAC DISC DEGEN 02/08/200411/2010 HTN, goal below 140/90 08/06 documented as of this encounter (statuses as of 03/21/2024) Immunizations Name Administration Dates Next Due Seasonal Influenza Virus Vac cine, Unspecified Formulation 08/13/2021,08/13/2018 Seasonal Influenza, PF, 6 M & above, IM , (FluLaval or Fluzone) 07/22/2022,07/05/2020,12/07/2019,2017 TD, Preservative Free 02/04/2022 TDAP (age 10 and older)(Boostrix) 11/11/2011 TDAP, Age 7 and older, IM (Adacel) 11/11/2011 Zoster Vaccine Recombinant (Shingrix) 01/07/2021 ,07/05/2020 documented as of this encounter Social History Tobacco Use Types Packs/Day Years Used Date Smoking Tobacco: Never Passive Smoke Exposure: Never Smokeless Tobacco: Never Comments: smokes outs kylee Alcohol Use Standard Drinks/Week Comments Never 0 (1 standard drink = 0.6 oz pur e alcohol) none PHQ-2 Answer Date Recorded PHQ Adult Total Score 0 03/07/2024 Hunger Vital Sign Answer Date Recorded Within the past 12 months, y ou worried that your food would run out before you got the money to buy more. Never true 11/16/19 24 Within the past 12 months, t he food you bought just didn't last and you didn't have money to get more. Never true 11/16/2023 Sex and Gender Information Value Date Recorded Sex Assigned at Female 01/18/2022 9:06 PM EDT Gender Identity Female 01/18/2022 9:06 PM EDT Sexual Orientation Straight 01/18/2022 9: 06 PM EDT Job Start Date Occupation Industry Not on file Not on file Not on file documented as of this encounter Functional Status Functional Status Response Date of Assess ment Are you deaf or do you have serious difficulty h earing? No 03/16/2024 Are you blind or do you have serious difficulty seeing, even when wearing glasses? No 03/16/2024 Do you have serious difficul ty walking or climbing stairs? (5 years old or older) No 03/16/2024 Do you have difficulty dress ing or bathing? (5 years old or older) No 03/16/2024 Because of a physical, menta l, or emotional condition, do you have difficulty doing errands alone such as visiting a doctor s office or shopping? (15 years old or older) No 03/16/20 24 Cognitive Status Response Date of Assessm ent Because of a physical, menta l, or emotional condition, do you have serious difficulty concentrating, remembering, or making decisions? (5 years old or older) No 03/16/2024 documented as of this encounter Miscellaneous Notes * Telephone Encounter - Christy Calvo RN - 03/21/2024 1:53 PM EDT Transitions of Care Note Reason for Referral:Recent Admission Phone visit for follow up: OBI Admitted to: [facility], Date: 03/16/2024 Discharged to: Home, Date: 03/18/2024 Diagnosis driving hospitalization: Psychogenic Nonepileptic Seizures Source/Contact: Patient SUBJECTIVE Consent: Verbal consent for review of hospital discharge: Yes REVIEW OF SYSTEMS Patient/Other Reports: Current patient/caregiver problems or concerns: No concerns at this time CV: Denies problems Pulmonary: Denies problems Chills/Sweats/Fever:Denies chills/sweats Denies fever Appetite:Denies problems such as nausea, vomiting, burning, decreased appetite Current diet: Normal Bowel: denies problems Bladder: denies problems Wound (If applicable): N/A Pain:Denies Sleep:Sleeping better than she has been FUNCTIONAL STATUS: ADL'S: Needs Assistance With:N/A as pt is independent IADL'S: Needs Assistance With:N/A as pt is independent Cognitive and Mental Health: denies problems, alert and oriented x 3, and able to communicate, understand instructions, process information. MEDICATION RECONCILIATION Medications: Reports all medications taken as prescribed. No new or discontinued medications ASSESSMENT Medication Risk Assessment: No risks identified Did patient fail outpatient treatment? No Discharge instructions available for review? Yes PLAN Symptom Monitoring Interventions:Member/caregiver education - signs and symptoms to contact PrimaryCare (DO NOT DELETE-Three rosales symptoms patient is to report to PCP) 1. Chest Pain 2. SOB 3. 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 Educated patient/caregiver on patient right to have input on OBI plan of care. Verification of Home Health/DME if indicated: NA Identified Care Gaps: No Care Gaps closed this call: Appointment made or confirmed and Transition of Care follow-up communication Re-evaluation of Plan of Care and progress towards goals achievement: Patient education this visit: Verbal, Confirmed PCP appointment, discussed reasons to call back sooner as above Plan to instructed to call Primary Care Provider with change in symptoms or as needed before next follow-up, discharge needs met, verbalizes understanding and agrees with plan. Discussed Zio patch with Dr. Cary, can reassess at follow-up appt on Thursday if additional Zio needed.Patient aware. Christy Calvo, RN documented in this encounter Plan of Treatment Upcoming Encounters Date Type Department Care Team (Late st Contact Info) Description 03/25/2024 2:00 PM EDT Office Visit [facility] [address] [place] [phone] Ema Ward MD [address] [place] [address] 03/28/2024 10:30 AM EDT Imaging Radiology, [facility] [address] [facility] [place] [address] 04/25/2024 8:15 AM EDT Cardiac Studies Cardiac Studies, [facility] [address] [facility] [place] [address] 05/02/2024 2:20 PM EDT Telemedicine Neurology [address] [place] [phone] Lisa Su PA-C [address] [place] [address] 05/11/2024 3:00 PM EDT Office Visit Gynecology/Obstetrics [facility] [address] [place] [address] Louann Brooks PA-C [address] [facility] [address] 06/17/2024 1:00 PM EDT [facility] [address] [place] [address] Cholo Miramontes MD [address] [place] [address] 12/02/2024 1:40 PM EST Office Visit [facility] [address] [place] [phone] Ema Ward MD [address] [place] [address] 12/20/2024 12:00 PM EDT Office Visit Gynecology/Obstetrics [facility] [address] [place] [address] Nemo Palmer CRNP [address] [place] [address] 03/02/2025 2:20 PM EDT [facility] [place] [facility] [address] [place] [address] Chelsey Slaughter PA-C [address] [place] [address] [place] [address] Scheduled Procedures Name Priority Associated Diagnoses Date/Ti me COLONOSCOPY FLEXIBLE PROXIMAL DIAGNOSTIC Recall Colon cancer screening Health Maintenance Due Date Last Done Comments HIV Screening 1981 Hepatitis C Screening 02/20/1984 Hepatitis B (1 of 3 - 19+ 3-dose series) 1985 Cologuard 2011 Fecal Occult Blood Test 2011 Sigmoidoscopy 2011 COVID-19 Vaccine ( season) 2023 02/28/2021, 02/07/2021 Mammogram 04/01/2024 04/01/2023, 03/06, 03/27/2021, Additional history exists Influenza Vaccine (FLU shot) (Season Ended) 2024 07/22/2022, 08/13/2021, 07/05/2020, Additional history exists Depression Screening 03/07/2025 03/07/2024 De León's Esophagus Surveilance 12/24/2025 12/24/2022, 12/24/2022, 03/07/2020, Additional history exists Colonoscopy 11/04/2026 11/04/2016, 11/04/2016 Colorectal Cancer Screening 11/04/2026 Diabetes Screening 03/18/2027 03/18/2024, 0 03/18/2024, 03/17/2024, Additional history exists Lipid Panel 11/26/2028 11/26/2023, 04/2022, 11/11/2021, Additional history exists DTaP,Tdap,and Td Vaccines (4 - Td or Tdap) 02/05/2032 02/04/2022, 11/11/2011, 11/11/2011 Zoster Vaccines Completed 01/07/2021, 07/05/2020 GARDASIL-HPV IMMUNIZATION SERIES Aged Out No longer eligible based on patient's age to complete this topic MENINGOCOCCAL (MENACTRA/MENVEO) Aged Out No longer eligible based on patient's age to complete this topic Pneumococcal Vaccine: Pediatrics (0 to 5 Years) and At-Risk Patients (6 to 64 Years) Aged Out No longer eligible based on patient's age to complete this topic documented as of this encounter Medical Devices Implanted Type Area Curb Machine Operator Device Identifier Shelf Expiration Date Model / Serial / Lot Graft Infus Bone Lg Ii [id number] - [id number] Implanted:Qty : 1 on 10/21/2006 at OR [facility] N/A: Spine Lumbar Medtronic Sof[employer] [id number] / / [id number] Screw Canc 6.5mm 216.030 - [id number] Implanted:Qty : 1 on 10/21/2006 at OR [facility] N/A: Spine Lumbar SYNTHES 216.030 / / Washer 13.0mm 219.99 - [id number] Implanted:Qty : 1 on 10/21/2006 at OR [facility] N/A: Spine Lumbar SYNTHES 219.99 / / Acromed [id number] [place] - [id number] Implanted:Qty : 4 on 10/21/2006 at OR [facility] N/A: Spine Lumbar DEON & DEON DEPUY [id number] / / Acromed [id number] [place] - [id number] Implanted:Qty : 4 on 10/21/2006 at OR [facility] N/A: Spine Lumbar DEON & DEON DEPUY [id number] / / Graft I/C Chamber 10cc [id number] - [id number] Implanted:Qty : 1 on 10/21/2006 at OR [facility] N/A: Spine Lumbar LIFENET [id number] / 06-0623-108 / Acromed [id number] [place] - [id number] Implanted:Qty : 2 on 10/21/2006 at OR [facility] N/A: Spine Lumbar DEON & DEON DEPUY [id number] / / Spacer Frame Implanted:Qty : 1 on 10/21/2006 at OR [facility] MUSCULOSKELETAL TRANSPLANT FND [id number] / [id number] / documented as of this encounter Advance Directives * Full Code (Latest Code Status on File) Date Activated Date Inactivated Comments 03/16/2024 3:47 PM 03/18/2024 9:58 PM This order r eflects the patients wishes and were consensually agreed upon. Question Answer Comments Discussion of Advance Directives occurred with: Patient Care Teams Practice Clinician Relationship Specialty Start Date End Date Ema Ward MD [address] [place] [address] PCP - General Family Medicine 02/04/22 documented as of this encounter
--- OUTSIDE RECORDS SUMMARY | 2024-04-02 04:47 | External Medical Summary | Summary of Care ---
Author Name Unknown Organization [facility] Address [address] [place] [address] Phone [phone] Care Team Providers Care Public Health Analyst Name Role Phone Ema Ward MD Primary Care Provid er Reason for Referral * Precert (Within 10 days (routine)) - Pending Review Specialty Diagnoses / Procedures Referred By Contac t Referred To Contact Cardiac Studies Diagnoses Atypical chest pain High blood cholesterol Psychogenic nonepileptic seizure Procedures ECHO, STRESS (EXERCISE) W/ PHYSICIAN Trenton To MD [address] [place] [id number] Referral ID Status Reason Start Date Expiration Date Visits Requested Visits Authorized [id number] Pending Review Precert 04/04/2024 [id number] Encounter Details Date Type Department Care Team (Late st Contact Info) Description 03/28/2024 Orders Only Cardiology, [facility] [address] [id number] Trenton To MD [address] [place] [id number] Atypical chest pain*; High blood cholesterol; Psychogenic nonepileptic seizure Allergies Active Allergy Reactions Criticality Noted Date Comments Codeine 10/02/2021 Lamotrigine 12/07/2020 rash Milnacipran Hcl Rash Medium 08/06/2011 Savella Morphine 10/02/2021 documented as of this encounter (statuses as of 03/28/2024) Medications Medication Sig Dispensed Refills Start Date [...] as of this encounter (statuses as of 03/28/2024) Active Problems Problem Noted Date Diagnosed Date High blood cholesterol 03/25/2024 Gastroesophageal reflux disease 03/25/2024 Adjustment insomnia 03/25/2024 Cervical radiculopathy at C8 03/25/2024 Chronic migraine without aura 03/25/2024 Contusion 03/25/2024 Depression with anxiety 03/25/2024 Dizziness 03/25/2024 History of total hysterectomy 03/25/2024 Hx of tonsillectomy 03/25/2024 SOB (shortness of breath) 03/25/2024 Stroke-like symptom 03/25/2024 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 Complicated migraine 03/25/2024 Orthostatic hypotension 03/18/2024 Syncope 03/16/2024 Stroke-like episode 04/27/2023 Cervicalgia 08/19/2021 H/O dysplastic nevus 04/12/2020 Overview: Mildly atypical nevi (L antecubital region, L pretibial region, L medial thigh, L upper back) 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 Sacral radiculopathy 08/06/2016 Chronic rhinitis 06/16/2014 Venous insufficiency 03/24/2014 Sleep disturbance 01/24/2013 Menopause 01/24/2013 Migraine 05/04/2008 Fibromyalgia documented as of this encounter (statuses as of 03/28/2024) Resolved Problems Problem Noted Date Diagnosed Date Resolved Date Obesity, Class I, BMI 30.0-3 4.9 (see [...] Myalgia and myositis 06/25/2006 016 DISC DIS [id number] 05/28/200611/2010 BACKACHE NOS 05/28/2006 08/06/2016 LUMB-LUMBOSAC DISC DEGEN 02/08/200411/2010 HTN, goal below 140/90 08/06 documented as of this encounter (statuses as of 03/28/2024) Immunizations Name Administration Dates Next Due Seasonal [...] money to get more. Never true 11/16/2023 Childcare Answer Date Recorded Do you feel overwhelmed with taking care of a child, family member or friend? No 11/16/2023 Does your family need help f inding childcare? (Household - for ages 0-17 years) Not on file 11/16/2023 Clothing Answer Date Recorded Have you been unable to get clothing when it was really needed? No 11/16/2023 Is your family able to get c lothes or diapers when needed? (Household - for ages 0-17 years) Not on file 11/16/2023 Personal Safety Answer Date Recorded Do you feel unsafe or have concerns for your saf ety? No 03/16/2024 Do you have concerns for you r family's safety? (Household - for ages 0-17 years) Not on file 03/16/2024 Utilities Answer Date Recorded Do you have trouble paying y our heating, water, or electric bill? No 03/16/2024 Is your family able to pay t he heat, water, or electric bill? (Household - for ages 0-17 years) Not on file 03/16/2024 Does your family have access to good internet? (Household - for ages 0-17 years) Not on file 03/16/2024 Employment Status Answer Date Recorded Are you unemployed or without regular income? No 11/16/2023 Does the household have a re gular source of income? (Household - for ages 0-17 years) Not on file 11/16/2023 Social Connections Answer Date Recorded How often do you feel lonely or isolated from th ose around you? Never 11/16/2023 Financial Resource Strain Answer Date R ecorded Do you have any trouble payi ng for your medications, or do you think you might in the future? No 11/16/2023 Does your family have troubl e paying for medicine? (Household - for ages 0-17 years) Not on file 11/16/2023 Transportation Needs Answer Date Record ed READ ONLY Do you have troubl e getting a ride to medical visits or work? Never True 03/16/2024 Does your family have a hard time getting a ride to doctors visits? (Household - for ages 0-17 years) Not on file 03/16/2024 Has lack of transportation k ept you from medical appointments, meetings, work, or from getting things needed for daily living? Check all that apply. (Adult - for ages 18 years and over) Not on file 03/16/2024 Do you (or your family) have trouble finding or paying for a ride (transportation)? (Household - for ages 0-17 years) Not on file 03/16/2024 Housing Stability Answer Date Recorded Do you currently live in a s helter or have no steady place to sleep at night? No 03/16/2024 READ ONLY Do you think you a re at risk of becoming homeless? No 03/16/2024 Does your family worry about paying for your home or becoming homeless? (Household - for ages 0-17 years) Not on file 0 03/16/2024 Are you homeless or worried that you might be in the future? (Adult - for ages 18 years and over) Not on file Are you (or your family) deann eless or worried that you might be in the future? (Household - for ages 0-17 years) Not on file Food Insecurity Answer Date Recorded Do you need food for this week? No 03/16/2024 Are you able to get enough f ood for your family? (Household - for ages 0-17 years) Not on file 03/16/2024 Does your family need food t his week? (Household - for ages 0-17 years) Not on file 03/16/2024 Do you always have enough fo od for your family? (Household - for ages 0-17 years) Not on file 03/16/2024 Sex and Gender Information Value Date Recorded [...] (15 years old or older) No 03/16/20 Cognitive Status Response Date of Assessm ent Because of a physical, menta l, or emotional condition, do you have serious difficulty concentrating, remembering, or making decisions? (5 years old or older) No 03/16/2024 documented as of this encounter Progress Notes * Atiya Ford, GRAZYNA - 03/28/2024 2:28 PM EDT CAD Imaging Referral Note Aaliyah Nick is a 59 year old female who was referred by Dr. Ema Ward for evaluation of atypical chest pain. Patient had recent hospital admission for psychogenic nonepileptic seizures, needs Cardio clearance prior to using mood stabilizers. Rest Echo during admission unremarkable. Cardiology appointment with Dr. Shay scheduled 05/20/2024. Reviewing Compound Worker: Dr. Trenton To Orders placed: Exercise Stress Echo Test location: [facility] Referral priority: 1 week or [address] Dr. Ward's Progress Note on 03/25/2024: ASSESSMENT / PLAN: Aaliyah Nick is a 59 year old female with PMHx gastroparesis / complex migraines with aura and pseudohemiplegia / fibromyalgia on lyrica - Here for OBI - Admitted at [facility] Admission date: 03/16 Discharge date: 03/18 Presented with: syncope and collapse Diagnosis: concluded that patient has psychogenic nonepileptic seizure and she was deemed stable bruce discharged. Diagnostics: MRA head and neck Head ct EEG TTE EKG Telemetry labs Hospital stay complicated by: 1- recurrent syncopal episodes Treatments / Consultation(s): 1- Cardiology - monitored pt on telemetry which did not reveal any arrythmia or conduction abnormalities, TTE was normal. 2- Neuro - MRA head and neck nonacute, EEG worn during 2 similar episodes and showed noneleptiform activity only. Changes to chronic medications: 1 - decrease baclofen In today's visit pt experienced Atypical chest pain, ordered a zio patch (not applied, pending insurance review), previous zio patch was worn for a few days and had to be removed due to inpatient mgmt and need for MRI - previous zio did show 3-4 run of SVT which correlated with a syncopal episode, but other pt reported episodes correlated with NSR. Her psychiatrist is on board to treat the psychogenic nonepileptic seizures with mood stabilizers but would like cardiology clearance before doing so. Cardio referral placed including CAD imaging referral to complete cardiac work up and in setting of new atypical chest pain. HPI: Aaliyah Nick is a 59 year old female. Pt seen by this provider on 03/07/24 for increase in symptoms of myalgia / thought to be 2/2 fibromyalgia - pt requesting pain treatment - we opted for prednisone burst. 03/12/24 - 5 days in to prednisone burst she was getting up to get a drink of water from bed, became lightheaded and passed out in her kitchen. Struck L forehead and R forearm/wrist/elbow on floor - all imaging showed no fracture, reassuring EKG and labs, she was given fluids and zofran for nausea, discharged home. 03/14/24 - seen here in the office for ER follow up - zio patch ordered to rule out cardiac rhythm cause but this had to be cancelled during her subsequent inpatient stay, for which today's visit is meant to review. 03/16/24 - syncope the night [employer] and earlier that day while in [place] ED while drawing blood - labs in [place] ED unremarkable including troponin and d dimer, CT no fractures. At that time she was chest pain free. She was monitored in telemetry, NSR, and EEG was normal. Today in the office she is here with her daughter in law - while nurse was interviewing the patientwhile she was seated in a chair, pt expressed concern that she was getting lightheaded and might pass out - nursing directed patient to the exam table and laid patient down - pt expressed that she was feeling short of breath and having chest pain - this pain was constant and lasted at least 20 minutes. Shortly after laying down she did become unresponsive and an alert was called. I was able to come in to the room shortly therafter and pt was laying on the bed with eyes open. Vitals were taken and showed 148/98, pulse 108. I was able to examine her while she laid down and she answered all questions appropriately. Pt's daughter in law expressed concern about the constant chest pain. She also says that the patient has had 1 or 2 syncopal episodes since being discharged from the hospital. By the time our interview was completed, she was able to sit up and support herself while sitting but did have lightheadedness again which dissipated after about 2 minutes. Her chest pain was constant. From the Discharge Summary on 03/18/2024: ADMISSION HISTORY & PHYSICAL EXAM (focused): Presenting Problem: Syncope HPI: Patient is a 59 year old female from home who presents to the ED with syncopal episodes. PMH is notable for ; Primary insomnia Dysphagia Barretts esophagus without dysplasia GERD without esophagitis Migraine Fibromyalgia History was obtained from the patient and the chart. Patient reports that she was in a usual state of health when she had a syncopal episode preceded bya light headedness. This happened when she was turning sideways. She fell down from a standing height and hit her head. Family laid her down in the bed after which she had another episode of syncope this time not preceded by lightheadedness. She went to the ED at an outside hospital were they attributed this to dehydration and was given some fluids. She then visited her PCP who put her on a ZIO patch. She then had another episode of syncope yesterday night. Her most recent episode syncope was today when they were trying to draw blood in the ED On arrival to hemodynamically stable Labs: BMP unremarkable, CBC unremarkable, D-dimer 0.27, liver function unremarkable, Troponin negative Imaging: CT head shows nonspecific changes related to chronic microvascular disease, no evidence ofcervical spine fractures, Mild left periorbital soft tissue swelling Incidental finding hypodense nodules in thyroid gland Patient denies chest pain, palpitations, dyspnea, cough, fevers, chills, rigors, nausea, vomitting,diarrhea, constipation, hematochezia, urinary complaints, vision changes, and focal neurologic defecits. Patient Active Problem List Diagnosis Migraine High blood cholesterol Gastroesophageal reflux disease Fibromyalgia Sleep disturbance Menopause Venous insufficiency Chronic rhinitis Sacral radiculopathy De León esophagus H/O dysplastic nevus Cervicalgia Stroke-like episode Syncope Orthostatic hypotension Adjustment insomnia Cervical radiculopathy at C8 Chronic migraine without aura Contusion Depression with anxiety Dizziness History of total hysterectomy Hx of tonsillectomy SOB (shortness of breath) Stroke-like symptom Basilar artery migraine Complicated migraine Current Outpatient Medications Medication Sig Dispense Refill XIAO-C 500 MG PO TABS Take 1 Tablet by mouth in the morning. COLACE 100 MG PO CAPS Take 1 Capsule by mouth at bedtime. 60 Cap 5 Famotidine 20 MG Oral Tablet (Pepcid) Take 1 Tablet by mouth at bedtime. 30 Tablet 2 Baclofen 20 MG Oral Tablet TAKE 1 TABLET BY MOUTH AT BEDTIME AND 1/2 TABLET UP TO TWO TIMES A DAY NEEDED FOR NECK AND HEAD PAIN (Patient taking differently: TAKE 1/2 TABLET BY MOUTH AT BEDTIME AND1/2 TABLET UP TO TWO TIMES A DAY NEEDED FOR NECK AND HEAD PAIN) 120 Tablet 11 Aspirin 81 MG Oral Tablet Delayed Release Take 1 Tablet by mouth in the morning. Nurtec 75 MG Oral Tablet Disintegrating (Rimegepant Sulfate) Take 1 Tablet by mouth as needed for Migraine. Pantoprazole Sodium 40 MG Oral Tablet Delayed Release (Protonix) TAKE ONE TABLET BY MOUTH EVERY DAY30 MINUTE BEFORE THE FIRST MEAL OF THE DAY. DO NOT CUT, CRUSH OR CHEW. 90 Tablet 2 Riboflavin 400 MG Oral Tablet Take 1 Tablet by mouth in the morning. Pregabalin 225 MG Oral Capsule (Lyrica) TAKE 1 CAPSULE BY MOUTH TWICE DAILY every morning and before bedtime Do not start before December 23, 2023. 180 Capsule 1 Atorvastatin Calcium 20 MG Oral Tablet (Lipitor) Take 1 Tablet by mouth in the morning. 90 Tablet 3 Venlafaxine HCl ER 150 MG Oral Capsule Extended Release 24 Hour (Effexor XR) TAKE 1 CAPSULE BY MOUTH ONCE DAILY every afternoon (Patient taking differently: Take 1 Capsule by mouth in the morning.) 90 Capsule 3 traZODone HCl 50 MG Oral Tablet (Desyrel) Take 1 Tablet by mouth at bedtime. 30 Tablet 5 No current facility-administered medications for this visit. The 10-year ASCVD risk score (Stephanie PERALTA, et al., 2019) is: 2% Values used to calculate the score: Age: 59 years Sex: Female Is Non- : No Diabetic: No Tobacco smoker: No Systolic Blood Pressure: 148 mmHg Is BP treated: No HDL Cholesterol: 83 mg/dL Total Cholesterol: 146 mg/dL Cardiac Studies: Echocardiogram 03/17/2024 Interpretation Summary The examination is limited quality but adequate for evaluation of the referral indication. The qualitative LV ejection fraction is 55-59% (normal). No LV segmental wall motion abnormalities. The right ventricular cavity size is normal (basal dimension < 4.2 cm RV apical 4 chamber view).The right ventricular systolic function is qualitatively normal. No significant valvular disease is present. EKG 03/16/2024 CONCLUSIONS: Normal sinus rhythm High QRS voltage may be normal variant or due to lve ( R in aVL ) Nonspecific T wave abnormality When compared with ECG of 01-Feb-2016 13:07, No significant change was found Ventricular Rate: 97 Atrial Rate: 97 PA Interval: 124 QRS Duration: 86 QT/QTc: 360/457 ms P-R-T [place]: 38 : 9 : 25 degrees Zio 03/14/2024 CONCLUSIONS: Preliminary Findings Prepared by Kellie Godoy, CCT 03/22/24 Patient had a min HR of 66 bpm, max HR of 176 bpm, and avg HR of 83 bpm. Predominant underlying rhythm was Sinus Rhythm. 1 run of Ventricular Tachycardia occurred lasting 6 beats with a max rate of 176 bpm (avg 154 bpm). Ventricular Tachycardia was detected within +/- 45 seconds of symptomatic patient event(s). Isolated SVEs were rare (<1.0%), SVE Couplets were rare (<1.0%), and SVE Triplets were rare (<1.0%). Isolated VEs were rare (<1.0%), and no VE Couplets or VE Triplets were present. Agree with Preliminary Findings The patient had 2 triggered events and 1 diary entry. The 1 diary entry indicated "fainting" and correlated to sinus rhythm. The patient had 1 triggered event correlating to sinus rhythm. Another triggered event correlated to a 3-4 beat run of VT. Exercise Echo 01/16/2014 Interpretation Summary The examination is adequate to evaluate the referral indication. The stress echo is negative for inducible ischemia. Exercise capacity is below average . Heart rate response to stress was abnormal. Blood pressure response to exercise was normal. The stress EKG response showed no evidence of ischemia. The left ventricular wall motion is normal. The left ventricular wall motion with stress is normal. The left ventricular ejection fraction increases normally with stress. Atypical chest pain was noted with stress. Atiya Ford MS, [facility] Correctional Manager, Cardiology Imaging Program documented in this encounter Plan of Treatment Upcoming Encounters Date Type Department Care Team (Late st Contact Info) Description 04/25/2024 8:15 AM EDT Cardiac Studies Cardiac Studies, [facility] [address] [facility] [place] [address] 05/02/2024 2:20 PM EDT Telemedicine Neurology [address] [place] [phone] Lisa Su PA-C [address] [facility] [place] [address] 05/11/2024 3:00 PM EDT Office Visit Gynecology/Obstetrics [facility] [address] [facility] [place] [address] Louann Brooks PA-C [address] [facility] [place] [address] 05/20/2024 7:45 AM EDT Office Visit Cardiology, [facility] [address] [facility] [place] [address] Vilma Shay, DO [facility] [address] 06/17/2024 1:00 PM EDT Office Visit Orthopaedics Spine Surgery, [facility] [address] [place] [address] Cholo Miramontes MD [address] [place] [place] [address] 12/02/2024 1:40 PM EST Office Visit Family [facility] [place] [address] [place] [address] Ema Ward MD [address] [place] [address] 12/20/2024 12:00 PM EDT Office Visit Gynecology/Obstetrics [facility] [address] [place] [address] Nemo Palmer CRNP [address] [place] [address] 03/02/2025 2:20 PM EDT Office Visit Dermatology, [place] [address] [place] [address] Chelsey Slaughter, [place]eroy [address] [place] [address] [place] [id number] Scheduled Orders Name Type Priority Associated Diagnoses Orde r Schedule ECHO, STRESS (EXERCISE) W/ PHYSICIAN Echocardiology Routine Atypical chest pain High blood cholesterol Psychogenic nonepileptic seizure Expected: 04/04/2024, Expires: 03/28/2025 Scheduled Procedures Name Priority Associated Diagnoses Date/Ti [...] 07/22/2022, 08/13/2021, 07/05/2020, Additional history exists Depression Monitoring 03/07/2025 03/07/2024 De León's Esophagus Surveilance 12/24/2025 [...] this encounter Medical Devices Implanted Type Area Sane Nurse Device Identifier Shelf Expiration Date Model / Serial / Lot Graft Infus Bone Lg Ii [id number] - [id number] Implanted:Qty : 1 on 10/21/2006 at [place] [facility] N/A: Spine Lumbar Medtronic Sofamor [place] [id number] / / [id number] Screw Canc 6.5mm 216.030 - [id number] Implanted:Qty : 1 on 10/21/2006 at OR [facility] N/A: Spine Lumbar SYNTHES 216.030 / / Washer 13.0mm 219.99 - [id number] Implanted:Qty : 1 on 10/21/2006 at OR [facility] N/A: Spine Lumbar SYNTHES 219.99 / / Acromed [id number] [place] - [id number] Implanted:Qty : 4 on 10/21/2006 at OR [facility] N/A: Spine Lumbar DEON & DEON DEPUY [id number] / / Acromed [id number] [place] - [id number] Implanted:Qty : 4 on 10/21/2006 at OR [facility] N/A: Spine Lumbar DEON & DEON DEPUY [id number] / / Graft I/C Chamber 10cc [id number] - [id number] Implanted:Qty : 1 on 10/21/2006 at OR [facility] N/A: Spine Lumbar LIFENET [id number] / [id number] / Acromed [id number] [place] - [id number] Implanted:Qty : 2 on 10/21/2006 at OR [facility] N/A: Spine Lumbar DEON & DEON DEPUY [id number] / / Spacer Frame Implanted:Qty : 1 on 10/21/2006 at OR [facility] MUSCULOSKELETAL TRANSPLANT FND [id number] / [id number] / documented as of this encounter Visit Diagnoses Diagnosis Atypical chest pain- Primary Other chest pain High blood cholesterol Pure hypercholesterolemia Psychogenic nonepileptic seizure documented in this encounter Advance Directives * Full Code (Latest Code Status on File) Date Activated Date Inactivated Comments 03/16/2024 3:47 PM 03/18/2024 9:58 PM This order r eflects the patients wishes and were consensually agreed upon. Question Answer Comments Discussion of Advance Directives occurred with: Patient Care Teams Public Health Analyst Relationship Specialty Start Date End Date Ema Ward MD [address] [place] [address] PCP - General Family Medicine 02/04/22 documented as of this encounter
--- OUTSIDE RECORDS SUMMARY | 2024-04-02 04:47 | External Medical Summary | Summary of Care ---
Author Name Unknown Organization [facility] Address [address] [place] [address] Phone [phone] Care Team Providers Care Spine Nurse Name Role Phone Ema Ward MD Primary Care Provid er Reason for Visit * Reason Onset Date Comments Advice 03/21/2024 Zio patch Encounter Details Date Type Department Care Team (Late st Contact Info) Description 03/21/2024 Telephone Formerly [facility] [address] [place] [address] FebruaryBaldev MD [address] [place] [address] Advice (Zio patch) Allergies Active Allergy Reactions Criticality Noted Date Comments Codeine 10/02/2021 Lamotrigine 12/07/2020 rash Milnacipran Hcl Rash Medium 08/06/2011 Savella Morphine 10/02/2021 documented as of this encounter (statuses as of 03/25/2024) Medications Medication Sig Dispensed Refills Start Date [...] as of this encounter (statuses as of 03/25/2024) Active Problems Problem Noted Date Diagnosed Date [...] as of this encounter (statuses as of 03/25/2024) Resolved Problems Problem Noted Date Diagnosed Date [...] Myalgia and myositis 06/25/2006 016 DISC DIS [id number] 05/28/200611/2010 BACKACHE NOS 05/28/2006 08/06/2016 LUMB-LUMBOSAC DISC DEGEN 02/08/200411/2010 HTN, goal below 140/90 08/06 documented as of this encounter (statuses as of 03/25/2024) Immunizations Name Administration Dates Next Due Seasonal [...] No 11/16/2023 Does the household have a [facility] source of income? (Household - for ages [...] encounter Miscellaneous Notes * Telephone Encounter - Ema Ward MD - 03/25/2024 2:30 PM EDT OV 03/25/24 * Telephone Encounter - Baldev Cary MD - 03/24/2024 1:47 PM EDT Patient has hospital follow up appointment with Dr. Ward on 03/25/2024. Can consider if this is needed at that appointment. Baldev Cary MD * Telephone Encounter - Naomi Anne MED ASSIST - 03/23/2024 10:36 AM EDT Please advise, would you like us to go through with these next steps? * Telephone Encounter - Mckenzie Duarte OSA - 03/21/2024 10:22 AM EDT Patient calling because she was admitted on March 16 in which at that time they had to remove zip patch that Dr. Cary had ordered. Providers at hospital want her to restart zio patch but office will have to call insurance [id number], provider will need to explain why patch was removed because she needed to get an MRI and that she would need another one. Since she had one of longer then 48 hours the insurance states that without a doctors consent to have another one placed patient would have topay for it. Patient has mailed back in the old zio patch. documented in this encounter Plan of Treatment Upcoming Encounters Date Type Department Care Team (Late st Contact Info) Description 03/28/2024 10:30 AM EDT Imaging Radiology, [facility] [address] [facility] [place] [address] 04/25/2024 8:15 AM EDT Cardiac Studies Cardiac Studies, [facility] [address] [facility] [place] [address] 05/02/2024 2:20 PM EDT Telemedicine Neurology [address] [place] [phone] Lisa Su PA-C [address] [facility] [place] [id number] 05/11/2024 3:00 PM EDT Office Visit Gynecology/Obstetrics [facility] [place] [address] Louann Brooks PA-C [address] [facility] [place] [address] 06/17/2024 1:00 PM EDT Office Visit Orthopaedics Spine Surgery, [facility] [address] [facility] [place] [address] Cholo Miramontes MD [address] [facility] [address] [place] [address] 12/02/2024 1:40 PM EST Office Visit Formerly [facility] [address] [place] [phone] Ema Ward MD [address] [place] [address] 12/20/2024 12:00 PM EDT Office Visit Gynecology/Obstetrics [facility] [address] [facility] [place] [address] Nemo Palmer CRNP [address] [facility] [place] [address] 03/02/2025 2:20 PM EDT [place] [address] [address] [facility] [phone] Chelsey Slaughter PA-C [address] [place] [address] [place] [address] Scheduled Procedures Name Priority Associated Diagnoses Date/Ti [...] Additional history exists Lipid Panel 11/26/2028 11/26/2023, 02/04/2022, 11/11/2021, Additional history exists DTaP,Tdap,and Td Vaccines [...] this encounter Medical Devices Implanted Type Area Workers Compensation Claims Supervisor Device Identifier Shelf Expiration Date Model / Serial / Lot Graft Infus Bone Lg Ii [id number] - [id number] Implanted:Qty : 1 on 10/21/2006 at [place] [facility] [place]/A: Spine Lumbar Medtronic Sofamor Danek [id number] / / [id number] Screw Canc 6.5mm 216.030 - [id number] Implanted:Qty : 1 on 10/21/2006 at [place] [facility] [place] N/A: Spine Lumbar SYNTHES 216.030 / / Washer 13.0mm 219.99 - [id number] Implanted:Qty : 1 on 10/21/2006 at [place] [facility] [place] N/A: Spine Lumbar SYNTHES 219.99 / / Acromed [id number] [place] - [id number] Implanted:Qty : 4 on 10/21/2006 at [place] [facility] [place] N/A: Spine Lumbar DEON & DEON DEPUY [id number] / / Acromed [id number] [place] - [id number] Implanted:Qty : 4 on 10/21/2006 at OR [facility] [place] N/A: Spine Lumbar DEON & DEON DEPUY [id number] / / Graft I/C Chamber 10cc [id number] - [id number] Implanted:Qty : 1 on 10/21/2006 at [place] [facility] [place] N/A: Spine Lumbar LIFENET [id number] / 06-0623-108 / Acromed [id number] [place] Ro - [id number] Implanted:Qty : 2 on 10/21/2006 at [place] [facility] [place] N/A: Spine Lumbar DEON & DEON DEPUY [id number] / / Spacer Frame Implanted:Qty : 1 on 10/21/2006 at [place] [facility] [place] MUSCULOSKELETAL TRANSPLANT FND [id number] / [id number] / documented as of this encounter Advance Directives * Full Code (Latest Code Status on File) Date Activated Date Inactivated Comments 03/16/2024 3:47 PM 03/18/2024 9:58 PM This order r eflects the patients wishes and were consensually agreed upon. Question Answer Comments Discussion of Advance Directives occurred with: Patient Care Teams Spine Nurse Relationship Specialty Start Date End Date Ema Ward MD [address] [place] [address] PCP - General Family Medicine 02/04/22 documented as of this encounter
--- OUTSIDE RECORDS SUMMARY | 2024-04-02 04:47 | External Medical Summary | Summary of Care ---
Author Name Unknown Organization [facility] Address [address] [place] [address] Phone [phone] Care Team Providers Care Real Estate Leasing Manager Name Role Phone Ema Ward MD Primary Care Provid er Reason for Referral * Ancillary Services (Within 10 days (routine)) - Pending Review Specialty Diagnoses / Procedures Referred By Vianey castellanos Referred To Contact Cardiovascular Medicine Diagnoses Atypical chest pain Ema Ward MD [address] [place] [address] Referral ID Status Reason Start Date Expiration Date Visits Requested Visits Authorized [id number] Pending Review Ancillary Services Required 03/25/[phone] Question Answer Referral Priority Within 10 days (routine) Where should this appointment be scheduled? [facility] How soon should this test be performed? 1 Week or Less Comments Not for rest Echo. Reason for Study (chest pain or anginal equivalent): Chest pain, no CAD: discordant clinical and imaging data Select the preferred exam: No Preference Does the patient have a current EKG? Yes Does the patient have a prior history of a stent or bypass? No Lab Results Component Value Date/Time CREATININE - GEISIN* 0.8 03/18/2024 05:57 AM CREATININE - GEISIN* 0.9 08/02/2020 11:01 AM CREATININE, RANDOM * 366 01/04/2014 07:43 AM CREATININE-OUTSIDE * 0.80 01/22/2019 12:00 AM Lab Results Component Value Date/Time BUN - [facility] 18 03/18/2024 05:57 AM DAYRON HODGES 12 08/02/2020 11:01 AM * Evaluate & Treat - Unlimited Visits (Within 30 days (routine)) - Pending Review Specialty Diagnoses / Procedures Referred By Contact Referred To Contact Cardiovascular Medicine / Cardiology Diagnoses Syncope and collapse Paroxysmal SVT (supraventricular tachycardia) (HCC) Ema Ward MD [address] [place] [facility] [place] [address] Referral ID Status Reason Start Date Expiration Date Visits Requested Visits Authorized [id number] Pending Review Specialty Services Required 03/25/[phone] Question Answer Referral Priority Within 30 days (routine) Where should this appointment be scheduled? [facility] To which of the following clinics are you referring your patient? Arrhythmia/Electrophysiology Clinic Comments Atypical chest pain, zio patch pending, previous zio patch was worn for a [...] would like cardiology clearance before doing so. Reason for Visit * Reason Onset Date Comments Hospital Follow-Up Hospital Follow-Up 03/25/2024 Encounter Details Date Type Department Care Team (Late st Contact Info) Description 03/25/2024 2:00 PM EDT Office Visit [facility] [address] [place] [facility] [place] [address] Ema Ward MD [address] [facility] [place] [id number] Hospital discharge follow-up*; Syncope and collapse; Paroxysmal SVT (supraventricular tachycardia) (HCC); Right sided weakness; Right hemiparesis (HCC); Atypical chest pain Allergies Active Allergy Reactions Criticality Noted Date [...] Myalgia and myositis 06/25/2006 016 DISC DIS [id number] 05/28/200611/2010 BACKACHE NOS 05/28/2006 08/06/2016 LUMB-LUMBOSAC DISC [...] Passive Smoke Exposure: Never Smokeless Tobacco: Never Tobacco Cessation:Counseling Given: Not Answered Comments: smokes outside Alcohol Use Standard Drinks/Week Comments Never 0 [...] on file documented as of this encounter Last Filed Vital Signs Vital Sign Reading Time Taken Comments Blood Pressure 148/98 03/25/2024 2:12 PM EDT Pulse 108 03/25/2024 2:12 PM EDT Temperature 37.3 C (99.2 F) 03/25/2024 2:12 PM ED T Respiratory Rate 16 03/25/2024 2:12 PM EDT Oxygen Saturation 98% 03/25/2024 2:12 PM EDT Inhaled Oxygen Concentration - - Weight 87.5 kg (193 lb) 03/25/2024 2:12 PM EDT Height 170.2 cm (5' 7") 03/25/2024 2:12 PM EDT Body Mass Index 30.23 03/25/2024 2:12 PM EDT documented in this encounter Functional Status Functional Status Response [...] as of this encounter Progress Notes * Ema Ward MD - 03/25/2024 2:42 PM EDT ASSESSMENT / PLAN: Aaliyah Nick is a 59 year old female with PMHx gastroparesis / complex migraines with aura and pseudohemiplegia / fibromyalgia on lyrica - Here for OBI - Admitted at [facility] Admission date: 03/16 Discharge date: 03/18 Presented [...] in setting of new atypical chest pain. Hospital discharge follow-up (Primary) - DISCH MED RECON CUR MED LIS - DURABLE MEDICAL EQUIPMENT - DURABLE MEDICAL EQUIPMENT Syncope and collapse - DISCH MED RECON CUR MED LIS - EXTERNAL EKG 8 TO 15 DAYS; Future; Expected date: 03/26/2024 - CARDIOLOGY REFERRAL OP - DURABLE MEDICAL EQUIPMENT - DURABLE MEDICAL EQUIPMENT Paroxysmal SVT (supraventricular tachycardia) (HCC) - DISCH MED RECON CUR MED LIS - EXTERNAL EKG 8 TO 15 DAYS; Future; Expected date: 03/26/2024 - CARDIOLOGY REFERRAL OP - DURABLE MEDICAL EQUIPMENT - DURABLE MEDICAL EQUIPMENT Right sided weakness - DURABLE MEDICAL EQUIPMENT - DURABLE MEDICAL EQUIPMENT Right hemiparesis (HCC) - DURABLE MEDICAL EQUIPMENT - DURABLE MEDICAL EQUIPMENT Atypical chest pain - CAD IMAGING REFERRAL OP If needed, prefers contact by: Ok to leave message on phone: SUBJECTIVE: Nursing Notes: Eula Richards, CHRISTMAS [employer]REE CONTRACTOR 03/25/24 1422 Signed The patient has been properly identified by confirmation of name and date of . Chief Complaint Patient presents with Hospital Follow-Up HPI: Aaliyah Nick is a 59 year [...] to review. 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 Her chest pain was constant. Patient Active Problem List Diagnosis Migraine High [...] Current Outpatient Medications Medication Sig Dispense Refill COLACE 100 MG PO CAPS Take 1 [...] by mouth at bedtime. 30 Tablet 5 XIAO-C 500 MG PO TABS Take 1 Tablet by mouth in the morning. No current facility-administered medications for this visit. OBJECTIVE: BP 148/98 | Pulse 108 | Temp 37.3 C (99.2 F) | Resp 16 | Ht 1.702 m (5' 7") | Wt 87.5 kg (193 lb) | SpO2 98% | BMI 30.23 kg/m | BSA 2.03 m Vitals reviewed and is normotensive / afebrile / and not tachycardic General: No acute distress. Neuro: Alert Pleasant & interactive. Respiratory: Good inspiratory effort, no labored breathing. CTAB CV: RRR no M R G HEENT: Conjunctivae appear clear. No swelling noted face or lips. Skin: No rash visible on exposed skin areas, normal coloration & appears dry. Psych: Normal affect. Fluent speech. Ema Ward MD [address] [address] There are no Patient Instructions on file for this visit. documented in this encounter Nursing Notes * Eula Richards LPN - 03/25/2024 2:22 PM EDT The patient has been properly identified by confirmation of name and date of . Chief Complaint Patient presents with Hospital Follow-Up documented in this encounter Plan of Treatment Upcoming Encounters Date Type Department Care Team (Late st Contact Info) Description 03/28/2024 10:30 AM EDT Imaging Radiology, [facility] [address] [place] [address] 04/25/2024 8:15 AM EDT Cardiac Studies Cardiac Studies, [facility] [address] [facility] [place] [address] 05/02/2024 2:20 PM EDT Telemedicine Neurology [address] [place] [phone] Lisa Su PA-C [address] [place] [address] 05/11/2024 3:00 PM EDT Office Visit Gynecology/Obstetrics [facility] [address] [facility] [place], [place] [address] Louann Brooks PA-C [address] [place] [address] 05/20/2024 7:45 AM EDT Office Visit Cardiology, [facility] [address] [facility] [address] Vilma Shay, [address] [facility] [place] [address] 06/17/2024 1:00 PM EDT Office Visit Orthopaedics Spine Surgery, [facility] [address] [facility] [place] [address] Cholo Miramontes MD [address] [place] [address] [place] [address] 12/02/2024 1:40 PM EST Office Visit Family [place] [address] [place] [phone] Ema Ward MD [address] [place] [address] 12/20/2024 12:00 PM EDT Office Visit Gynecology/Obstetrics [facility] [address] [facility] [place] [address] Nemo Palmer CRNP [address] [facility] [place] [address] 03/02/2025 2:20 PM EDT Office Visit Dermatology, [place] [address] [place] [address] Chelsey Slaughter PA-C [address] [place] [address] [place] [address] Scheduled Orders Name Type Priority Associated Diagnoses Orde r Schedule EXTERNAL EKG 8 TO 15 DAYS Holter Routine Syncope and collapse Paroxysmal SVT (supraventricular tachycardia) (HCC) Expected: 03/26/2024 (Approximate), Expires: 03/25/2025 Scheduled Procedures Name Priority Associated Diagnoses Date/Ti tx COLONOSCOPY FLEXIBLE PROXIMAL DIAGNOSTIC Recall Colon cancer screening Scheduled Referrals Name Type Priority Associated Diagnoses Orde r Schedule CARDIOLOGY REFERRAL OP Referral Within 30 days (routine) Syncope and collapse Paroxysmal SVT (supraventricular tachycardia) (HCC) Ordered: 03/25/2024 CAD IMAGING REFERRAL OP Referral Within 10 days (routine) Atypical chest pain Ordered: 03/25/2024 Health Maintenance Due Date Last Done Comments [...] this encounter Medical Devices Implanted Type Area Credit And Collection Manager Device Identifier Shelf Expiration Date Model / Serial / Lot Graft Infus Bone Lg Ii [id number] - [id number] Implanted:Qty : 1 on 10/21/2006 at [place] [facility] [place] N/A: Spine Lumbar Medtronic Sofamor Danek [id number] / / [id number] Screw Canc 6.5mm 216.030 - [id number] Implanted:Qty : 1 on 10/21/2006 at [place] [facility] [place] N/A: Spine Lumbar SYNTHES 216.030 / / Washer 13.0mm 219.99 - [id number] Implanted:Qty : 1 on 10/21/2006 at [place] [facility] [place] N/A: Spine Lumbar SYNTHES 219.99 / / Acromed [id number] [place] Pe - [id number] Implanted:Qty : 4 on 10/21/2006 at OR [facility] [place] N/A: Spine Lumbar DEON & DEON DEPUY [id number] / / Acromed [id number] [place] Ca - [id number] Implanted:Qty : 4 on 10/21/2006 at OR [facility] [place] N/A: Spine Lumbar DEON & DEON DEPUY [id number] / / Graft I/C Chamber 10cc [id number] - [id number] Implanted:Qty : 1 on 10/21/2006 at OR [facility] [place] N/A: Spine Lumbar LIFENET [id number] / 06-0623-108 / Acromed [id number] [place] Ro - [id number] Implanted:Qty : 2 on 10/21/2006 at OR [facility] [place] N/A: Spine Lumbar DEON & DEON DEPUY [id number] / / Spacer Frame Implanted:Qty : 1 on 10/21/2006 at OR [facility] [place] MUSCULOSKELETAL TRANSPLANT FND [id number] / [id number] / documented as of this encounter Visit Diagnoses Diagnosis Hospital discharge follow-up- Primary Other follow-up examination Syncope and collapse Paroxysmal SVT (supraventricular tachycardia) (HCC) Paroxysmal supraventricular tachycardia Right sided weakness Muscle weakness (generalized) Right hemiparesis (HCC) Hemiplegia, unspecified, affecting unspecified side Atypical chest pain Other chest pain documented in this encounter Advance Directives * Full Code (Latest Code Status on File) Date Activated Date Inactivated Comments 03/16/2024 3:47 PM 03/18/2024 9:58 PM This order r eflects the patients wishes and were consensually agreed upon. Question Answer Comments Discussion of Advance Directives occurred with: Patient Care Teams Real Estate Leasing Manager Relationship Specialty Start Date End Date Ema Ward MD [address] [facility] [place] [address] PCP - General Family Medicine 02/04/22 documented as of this encounter
--- OUTSIDE RECORDS SUMMARY | 2024-04-02 04:48 | External Medical Summary ---
Author Name Unknown Address Unknown Organization K01:[facility]ORY [facility] - [address] [place] [address] Laboratory Report Ordering Provider Test Date Status JS BROOKSKT 03/17/2024 07:17:00 Final Observation Date Value Abnormality Reference (Units ) Status WBC, Total 03/17/2024 07:17:00 8.80 4.00-10.80 (K/uL) Final RBC 03/17/2024 07:17:00 4.22 3.85-5.15 (M/uL) Final Hemoglobin 03/17/2024 07:17:00 12.5 12.0-15.3 (g/dL) Final HCT 03/17/2024 07:17:00 39.2 36.0-45.2 (%) Final MCV 03/17/2024 07:17:00 92.9 81.5-97.5 (fL) Final MCH 03/17/2024 07:17:00 29.6 27.0-34.0 (pg) Final MCHC 03/17/2024 07:17:00 31.9 32.0-36.0 (g/dL) Final RDW 03/17/2024 07:17:00 12.5 11.5-15.5 (%) Final Platelets 03/17/2024 07:17:00 214 140-400 (K/uL) Final MPV 03/17/2024 07:17:00 11.4 6.6-11.1 (fL) Final Nucleated erythrocytes/100 leukocytes [Ratio] in Blood by Automated count 03/17/2024 07:17:00 0 <=0 (/100 WBCs) Final Performing Location [facility] - [address] [place] [address]
--- OUTSIDE RECORDS SUMMARY | 2024-04-02 04:48 | External Medical Summary ---
Author Name Unknown Address Unknown Organization : Laboratory Report Ordering Provider Test Date Status ROBERTO MCGHEE 03/18/2024 11:03:33 Final Observation Date Value Abnormality Reference (Units ) Status Glucose Point of Care 03/18/2024 11:03:33 108 70-120 (mg/dL) Final Performing Location
--- OUTSIDE RECORDS SUMMARY | 2024-04-02 04:48 | External Medical Summary | Summary of Care ---
Author Name Unknown Organization [facility] Address [address] [place] [address] Phone [phone] Care Team Providers Care Backend Tester Name Role Phone Ema Ward MD Primary Care Provid er Reason for Visit * Auth/Cert Specialty Diagnoses / Procedures Referred By Vianey castellanos Referred To Contact [facility] [address] [place] [address] Phone: [phone] Emergency Medicine [facility] [place] [address] [place] [address] Referral ID Status Reason Start Date Expiration Date Visits Re quested Visits Authorized [id number] Encounter Details Date Type Department Care Team (Latest Contact Info) Description 03/17/2024 8:43 AM EDT - 03/17/2024 11:59 PM EDT Hospital Encounter Cardiac Studies [facility] [address] [place] [address] Discharge Disposition: Home - Self Care Allergies Active Allergy Reactions Criticality Noted Date Comments Codeine 10/02/2021 Lamotrigine 12/07/2020 rash Milnacipran Hcl Rash Medium 08/06/2011 Savella Morphine 10/02/2021 documented as of this encounter (statuses as of 03/18/2024) Medications Medication Sig Dispensed Refills Start Date End Date Status XIAO-C 500 MG PO TABS Take 1 Tablet by mouth in the morning. Suspended COLACE 100 MG PO CAPSIndications:Uns pecified constipation,Menopa use Take 1 Capsule by mouth at bedtime. 60 Cap 5 01/24/2013 Suspended Famotidine 20 MG Oral Tablet (Pepcid) Take 1 Tablet by mouth at bedtime. 30 Tablet 2 12/18/2022 Suspended Additional Information Baclofen 20 MG Oral TabletIndications:C ervicalgia TAKE 1 TABLET BY MOUTH AT BEDTIME AND 1/2 TABLET UP TO TWO TIMES A DAY NEEDED FOR NECK AND HEAD PAIN 120 Tablet 11 02/23/2023 Suspended Additional Information Patient taking differently: TAKE 1/2 TABLET BY MOUTH AT BEDTIME AND 1/2 TABLET UP TO TWO TIMES A DAY NEEDED FOR NECK AND HEAD PAIN, Informant: Wallet Card/List, Reported on 03/16/2024 Aspirin 81 MG Oral Tablet Delayed Release Take 1 Tablet by mouth in the morning. Suspended Nurtec 75 MG Oral Tablet Disintegrating (Rimegepant Sulfate) Take 1 Tablet by mouth as needed for Migraine. Suspended Pantoprazole Sodium 40 MG Oral Tablet Delayed Release (Protonix)Indicatio ns:Nausea,Gastroeso phageal reflux disease without esophagitis TAKE ONE TABLET BY MOUTH EVERY DAY 30 MINUTE BEFORE THE FIRST MEAL OF THE DAY. DO NOT CUT, CRUSH OR CHEW. 90 Tablet 2 06/23/2023 Suspended Additional Information Riboflavin 400 MG Oral Tablet Take 1 Tablet by mouth in the morning. 07/22/2023 Suspended Pregabalin 225 MG Oral Capsule (Lyrica)Indications :Hemiplegic migraine without status migrainosus, not intractable TAKE 1 CAPSULE BY MOUTH TWICE DAILY every morning and before bedtime Do not start before December 23, 2023. 180 Capsule 1 12/23/2023 Suspended Additional Information Atorvastatin Calcium 20 MG Oral Tablet (Lipitor)Indication s:Hyperlipidemia LDL goal <70,Stroke-like episode,Hemiplegic migraine without status migrainosus, not intractable Take 1 Tablet by mouth in the morning. 90 Tablet 3 11/30/2023 Suspended Additional Information Venlafaxine HCl ER 150 MG Oral Capsule Extended Release 24 Hour (Effexor XR)Indications:Darryn plegic migraine without status migrainosus, not intractable TAKE 1 CAPSULE BY MOUTH ONCE DAILY every afternoon 90 Capsule 3 2024 Suspended Additional Information Patient taking differently: 150 mg Oral Daily(AM), Informant: Wallet Card/List, Reported on 03/16/2024 traZODone HCl 50 MG Oral Tablet (Desyrel)Indication s:Primary insomnia Take 1 Tablet by mouth at bedtime. 30 Tablet 5 03/14/2024 Suspended Additional Information documented as of this encounter (statuses as of 03/18/2024) Active Problems Problem Noted Date Diagnosed Date Syncope and collapse 03/16/2024 Stroke-like episode 04/27/2023 [...] as of this encounter (statuses as of 03/18/2024) Resolved Problems Problem Noted Date Diagnosed Date [...] Myalgia and myositis 06/25/2006 016 DISC DIS [id number] 05/28/200611/2010 BACKACHE NOS 05/28/2006 08/06/2016 LUMB-LUMBOSAC DISC DEGEN 02/08/200411/2010 HTN, goal below 140/90 08/06 documented as of this encounter (statuses as of 03/18/2024) Immunizations Name Administration Dates Next Due Seasonal [...] No 03/16/2024 documented as of this encounter Plan of Treatment Upcoming Encounters Date Type Department Care Team (Late st Contact Info) Description 03/28/2024 10:30 AM EDT [address] [address] 04/25/2024 8:15 AM EDT Cardiac Studies Cardiac Studies, [facility] [address] [place] [id number] 05/11/2024 3:00 PM EDT Office Visit Gynecology/Obstetrics [facility] [address] [place] [address] Louann Brooks PA-C [address] [place] [address] 06/17/2024 1:00 PM EDT Office Visit Orthopaedics Spine Surgery, [facility] [address] [address] Cholo Miramontes MD [address] [place] [address] 12/02/2024 1:40 PM EST Office Visit Family [facility], [place] [address] [place] [address] Ema Ward MD [address] [place] [address] 12/20/2024 12:00 PM EDT Office Visit Gynecology/Obstetrics [facility] [address] [place] [address] Nemo Palmer CRNP [address] [facility] [place] [address] 03/02/2025 2:20 PM EDT Office Visit Dermatology, [place] [address] [place] [address] Chelsey Slaughter PA-C [address] [place] [address] [place] [address] Scheduled Procedures Name Priority Associated Diagnoses Date/Ti [...] this encounter Medical Devices Implanted Type Area Operational Communication Chief Device Identifier Shelf Expiration Date Model / Serial / Lot Graft Infus Bone Lg Ii [id number] - [id number] Implanted:Qty : 1 on 10/21/2006 at [place] [facility] [place] N/A: Spine Lumbar Medtronic Sofamor Danek [id number] / / [id number] Screw Canc 6.5mm 216.030 - [id number] Implanted:Qty : 1 on 10/21/2006 at [place] [facility] [place] N/A: Spine Lumbar SYNTHES 216.030 / / Washer 13.0mm 219.99 - [id number] Implanted:Qty : 1 on 10/21/2006 at [place] [facility] [place] N/A: Spine Lumbar SYNTHES 219.99 / / Acromed [id number] Aneta Pe - [id number] Implanted:Qty : 4 on 10/21/2006 at [place] [facility] [place] N/A: Spine Lumbar DEON & DEON DEPUY [id number] / / Acromed [id number] Aneta Ca - [id number] Implanted:Qty : 4 on 10/21/2006 at [place] [facility] [place] N/A: Spine Lumbar DEON & DEON DEPUY [id number] / / Graft I/C Chamber 10cc [id number] - [id number] Implanted:Qty : 1 on 10/21/2006 at [place] [facility] [place] N/A: Spine Lumbar LIFENET IYN370 / 06-0623-108 / Acromed [id number] Aneta Ro - [id number] Implanted:Qty : 2 on 10/21/2006 at [place] [facility] [place] N/A: Spine Lumbar DEON & DEON DEPUY [id number] / / Spacer Frame Implanted:Qty : 1 on 10/21/2006 at [place] [facility] [place] MUSCULOSKELETAL TRANSPLANT FND [id number] / [id number] / documented as of this encounter Procedures Procedure Name Priority Date/Time Associated Diagnosis Comments ECHO, COMPLETE (2D), TRANS-THORACIC Routine 03/17/2024 9:10 AM EDT Syncope, unspecified syncope type documented in this encounter Visit Diagnoses Diagnosis Syncope and collapse- Primary documented in this encounter Administered Medications Inactive Administered Medications - up to 3 most recent administrations Medication Order MAR Action Action Date Dose Rate Site perflutren lipid microsphere inj SUSP 1.956 mg 1.956 mg, Intravenous, ONCE PRN Other, For Echo Only - Suboptimal Echo Images, Starting on Claudia 03/17/24 at 0901, Until Claudia 03/17/24 at 1100, For 2 hours, Administer IVP over 45 seconds, Cardiac Studies_HODHOV Given 03/17/2024 9:01 AM EDT 1.956 mg documented in this encounter Advance Directives * Full Code (Latest Code Status on File) Date Activated Date Inactivated Comments 03/16/2024 3:47 PM This order ref lects the patients wishes and were consensually agreed upon. Question Answer Comments Discussion of Advance Directives occurred with: Patient Care Teams Backend Tester Relationship Specialty Start Date End Date Ema Ward MD [address] [place] [address] PCP - General Family Medicine 02/04/22 documented as of this encounter
--- OUTSIDE RECORDS SUMMARY | 2024-04-02 04:48 | External Medical Summary ---
Author Name Unknown Address Unknown Organization [id number]:[facility] [place] [address] [place] [address] Laboratory Report Ordering Provider Test Date Status JS BROOKSKT 03/17/2024 07:17:00 Final Observation Date Value Abnormality Reference (Units ) Status BUN 03/17/2024 07:17:00 14 6-20 (mg/dL) Final Creatinine 03/17/2024 07:17:00 0.8 0.5-1.0 (mg/dL) Final Glomerular filtration rate/1.73 sq M.predicted [Volume Rate/Area] in Serum, Plasma or Blood by Creatinine-based formula (CKD-EPI) 03/17/2024 07:17:00 83 >=60 (mL/min) Final eGFR is calculated based on the CKD-EPI 2020 equation Sodium 03/17/2024 07:17:00 142 135-146 (m mol/L) Final Potassium 03/17/2024 07:17:00 4.0 3.5-5.1 (m mol/L) Final Cl 03/17/2024 07:17:00 104 98-107 (mm ol/L) Final CO2 03/17/2024 07:17:00 29 22-32 (mmo l/L) Final Anion gap 03/17/2024 07:17:00 9 7-15 (mmol /L) Final Glucose 03/17/2024 07:17:00 93 70-120 (mg /dL) Final Calcium 03/17/2024 07:17:00 8.8 8.4-10.2 ( mg/dL) Final Performing Location [facility] [place] [address] [place] [address]
--- OUTSIDE RECORDS SUMMARY | 2024-04-02 04:48 | External Medical Summary ---
Author Name Unknown Address Unknown Organization K01:[facility] [place] [address] [place] [address] Laboratory Report Ordering Provider Test Date Status JS BROOKSKT 03/18/2024 05:57:00 Final Observation Date Value Abnormality Reference (Units ) Status WBC, Total 03/18/2024 05:57:00 10.65 4.00-10.80 (K/uL) Final RBC 03/18/2024 05:57:00 4.30 3.85-5.15 (M/uL) Final Hemoglobin 03/18/2024 05:57:00 12.7 12.0-15.3 (g/dL) Final HCT 03/18/2024 05:57:00 39.8 36.0-45.2 (%) Final MCV 03/18/2024 05:57:00 92.6 81.5-97.5 (fL) Final MCH 03/18/2024 05:57:00 29.5 27.0-34.0 (pg) Final MCHC 03/18/2024 05:57:00 31.9 32.0-36.0 (g/dL) Final RDW 03/18/2024 05:57:00 12.5 11.5-15.5 (%) Final Platelets 03/18/2024 05:57:00 220 140-400 (K/uL) Final MPV 03/18/2024 05:57:00 11.4 6.6-11.1 (fL) Final Nucleated erythrocytes/100 leukocytes [Ratio] in Blood by Automated count 03/18/2024 05:57:00 0 <=0 (/100 WBCs) Final Performing Location [facility] - [address] [place] [address]
--- OUTSIDE RECORDS SUMMARY | 2024-04-02 04:48 | External Medical Summary | Summary of Care ---
Author Name Unknown Organization [facility] Address [address] [place] [address] Phone [phone] Care Team Providers Care Neon Sign Mechanic Name Role Phone Ema Ward MD Primary Care Provid er Reason for Visit * Reason Comments Syncope * Auth/Cert Specialty Diagnoses / Procedures Referred By Vianey t Referred To Contact [facility] [address] [place] [address] Phone: [phone] Emergency Medicine [facility] [address] [place] [address] Referral ID Status Reason Start Date Expiration Date Visits Re quested Visits Authorized [id number] Encounter Details Date Type Department Care Team (Latest Contact Info) Description 03/16/2024 1:44 PM EDT - 03/18/2024 5:53 PM EDT Hospital Encounter [facility], [facility] [address]rd [address] [place] [address] Kevin Holm MD [address] [place] [address] Camron Sandhu DO [address], [place] Rachel Wilson MD [address], [place] EKG Report Discharge Disposition: Home - Self Care Allergies Active Allergy Reactions Criticality Noted Date Comments Codeine 10/02/2021 Lamotrigine 12/07/2020 rash Milnacipran Hcl Rash Medium 08/06/2011 Savella Morphine 10/02/2021 documented as of this encounter (statuses as of 03/19/2024) Medications Medication Sig Dispensed Refills Start Date End Date Status XIAO-C 500 MG PO TABS Take 1 Tablet by mouth in the morning. Active COLACE 100 MG PO CAPSIndications:Uns pecified constipation,Menopa use Take 1 Capsule by mouth at bedtime. 60 Cap 5 01/24/2013 Active Famotidine 20 MG Oral Tablet (Pepcid) Take 1 Tablet by mouth at bedtime. 30 Tablet 2 12/18/2022 Active Baclofen 20 MG Oral TabletIndications:C ervicalgia TAKE [...] 07/22/2023 Active Pregabalin 225 MG Oral Capsule (Lyrica)Indications :Hemiplegic migraine without status migrainosus, not intractable TAKE 1 CAPSULE BY MOUTH TWICE DAILY every morning and before bedtime Do not start before December 23, 2023. 180 Capsule 1 12/23/2023 Active Atorvastatin Calcium 20 MG Oral Tablet (Lipitor)Indication [...] at bedtime. 30 Tablet 5 03/14/2024 Active Fluticasone Propionate 50 MCG/ACT Nasal SuspensionIndicatio ns:Acute non-recurrent maxillary sinusitis Administer 2 Sprays into each nostril daily. 9.9 mL 3 08/25/2020 03/16/20 24 Discontinu ed(Medicat ion List Clean Up) Simethicone 125 MG Oral Capsule Take by mouth. 03/16/20 24 Discontinu ed(Medicat ion List Clean Up) Womens Multi Gummies Oral Tablet Chewable Take by mouth daily at noon. 03/16/20 24 Discontinu ed(Medicat ion List Clean Up) Triamcinolone Acetonide 0.1 % Mouth/Throat Paste (Kenalog In Orabase)Indications :Aphthous ulcer Apply to inside of cheek 3 times a day . To affected area. 5 g 1 07/22/2022 03/16/20 Discontinu ed(Medicat ion List Clean Up) Triamcinolone Acetonide 0.1 % External Cream (Aristocort)Indicat ions:Bee sting reaction, accidental or unintentional, initial encounter APPLY TOPICAL TO AFFECTED AREA 2 TIMES A DAY 60 g 08/20/2023 03/16/20 Discontinu ed(Medicat ion List Clean Up) documented as of this encounter (statuses as of 03/19/2024) Active Problems Problem Noted Date Diagnosed Date [...] as of this encounter (statuses as of 03/19/2024) Resolved Problems Problem Noted Date Diagnosed Date [...] Myalgia and myositis 06/25/2006 016 DISC DIS SAF-PGN-JJHAPL 05/28/200611/2010 BACKACHE NOS 05/28/2006 08/06/2016 LUMB-LUMBOSAC DISC DEGEN 02/08/200411/2010 HTN, goal below 140/90 08/06 documented as of this encounter (statuses as of 03/19/2024) Immunizations Name Administration Dates Next Due Seasonal [...] Sign Reading Time Taken Comments Blood Pressure 129/75 03/18/2024 2:59 PM EDT Pulse 91 03/18/2024 2:59 PM EDT Temperature 36.6 C (97.9 F) 03/18/2024 2:59 PM ED T Respiratory Rate 18 03/18/2024 2:59 PM EDT Oxygen Saturation 98% 03/18/2024 2:59 PM EDT Inhaled Oxygen Concentration - - Weight 90.7 kg (199 lb 14.4 oz) 03/18/2024 6:00 AM EDT Height 170.2 cm (5' 7") 03/16/2024 4:26 PM EDT Body Mass Index 31.31 03/16/2024 4:26 PM EDT documented in this encounter Functional [...] No 03/16/2024 documented as of this encounter Discharge Instructions * Discharge Instr - AVS* Deep Marley MD - 03/18/2024 3:02 PM EDT Discharge Date: 03/18/24 The information below provides you with the instructions and the list of medications you need to betaking following discharge from the hospital. If you have any questions, please ask before leaving. If you have questions after leaving, you can reach us at the numbers below. YOUR HOSPITAL PROVIDERS: Discharging Provider: Rachel Wilson MD Provider Department: Hospital Medicine To reach this Provider Thursday through Thursday (8:00 AM to 4:30 PM) for any questions or test results: Call [phone] For after-hours concerns: Call [phone] and have your provider paged, or the provider mobile phone salesperson for the Department of Hospital Medicine paged. Please note, the discharging provider will not be able to provide you with any medications refills.Please discuss these with your primary care provider. Worsening Symptoms: If you have new symptoms, or your symptoms get worse, please contact your Discharge Provider or Primary Care Provider (PCP). If these providers are not available, you can go to your local [facility] care facility or Urgent Care Clinic during their business hours. In an EMERGENCY situation: Call 911 or go to the nearest emergency room. A BRIEF SUMMARY OF YOUR HOSPITAL STAY: You came to the hospital with: Complains of syncopal episodes and a history of fall. You were placed on cardiac exercise specialist EKG was done which was normal. MRI of the head and neck was done which did not reveal any significant results. Heart doctors ( cardiology) were consulted who were not concerned about abnormal heart rhythm conduction abnormalities. Brain doctors (Neurology) were consulted who recommended monitoring electrical activity of the brain (EEG). You had 3 episodes of syncope in in the hospital. Two of those episodes happened when you were continuously monitored through an EEG. It wasthen determined that these episodes were likely due to stressors. You are being discharged after deemed to be medically stable. You will need to follow-up with your therapist and psychiatrist for further management of these episodes Zio patch was not placed at discharge due to insurance issue. Please follow up with PCP to get the Zio patch. 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 Yes YOUR FOLLOW UP APPOINTMENTS: Primary Care Provider Information: PCP: Ema Ward MD [address] [place] [address] / [place] [address] (office) [phone] (fax) An appointment was requested with your PCP (Ema Ward MD) within 7 days. (Please take this form to this visit with your primary care physician.) You need the following studies in the future: none INSTRUCTIONS: Diet: Normal diet Activity: No restrictions Continue taking all your medications documented in this encounter Progress Notes * Diana Dunbar RN - 03/18/2024 11:05 AM EDT Nursing Critical Care Response Note [address] [address] Name: Aaliyah Nick Date: 03/18/2024 Time: 1105 Event Location: [facility], Unit Area: GP3 In the role of the Critical Response Nurse I was involved in the care of this patient. Method of notification to the critical care response nurse: Rapid response team notification Stroke alert Reason for notification or follow up: Stroke Observations/Interventions/Assessment: Upon arrival to bedside patient in bed GCS 15 | Glucose 108 | BP 143/96 | Pulse 96 | Temp 36.7 C (98 F) (Tympanic) | Resp 20 | SpO2 95% on room air. Primary provider Dr. Wilson present at bedside. Patient reported to have unresponsive episode initiating stroke alert. Patient on LTM at the time event button pushed. Neurology presented to bedside for evaluation. Decision made to cancel stroke alert. Outcome/Plan Patient to remain on floor with care and monitoring by bedside nurse. LTM to be reviewed for event.CRN can be contacted via [place] Text: [facility] Critical Response Nurse. * Deep Marley MD - 03/17/2024 5:05 PM EDT Images from the original note were not included. [facility] G310/B INTERVAL HISTORY: No acute overnight events Patient was seen and evaluated at bedside this morning. Denies any acute concerns and resting comfortably. Around 9:45 am this morning patient passed out while she was standing during blood pressure measurements. Denied lightheadedness, dizziness, confusions Rest all other ROS were negative apart from ones mentioned in the HPI Objective Physical Exam Most Recent Vital Signs: BP: 125 mmHg/79 mmHg (03/17/24 1456) Pulse: 81 (03/17/24 1456) Resp: 17 (03/17/24 1456) Temp: 36.78 C (03/17/24 1456) Temp Summary: Temp Min: 36 C (96.8 F) Max: 36.8 C (98.2 F) SpO2: 95 % (03/17/24 1456) O2 flow rate: Supplemental O2 Delivery: Room Air, None (03/17/24 0942) Constitutional: no acute distress CV: normal rate and rhythm, no murmur, gallops or rub Chest: normal respiratory effort, lungs clear to auscultation and percussion Abdomen: normal: soft, bowel sounds normal, no masses, tenderness or organomegaly Extremities: no clubbing, cyanosis, or edema, otherwise grossly normal, warm, and dry Neuro: alert, oriented to person, place, and time, pronator drift + Peripheral Line Lower;Left Arm 22 Gauge (Active) Number of days: 1 STUDIES: Encounter Orders Labs and other studies reviewed with pertinent findings noted below: Latest Reference Range & Units 03/17/24 07:17 Sodium 135 - 146 mmol/L 142 Potassium 3.5 - 5.1 mmol/L 4.0 Chloride 98 - 107 mmol/L 104 CO2 22 - 32 mmol/L 29 BUN 6 - 20 mg/dL 14 Creatinine 0.5 - 1.0 mg/dL 0.8 Estimated Glomerular Filtration Rate >=60 mL/min 83 Anion Gap 7 - 15 mmol/L 9 Glucose 70 - 120 mg/dL 93 Calcium 8.4 - 10.2 mg/dL 8.8 Assessment and Plan IMPRESSION : Principal Problem: Syncope and collapse Active Problems: Migraine with aura and without status migrainosus, not intractable Gastroesophageal reflux Sleep disturbance Resolved Problems: * No resolved hospital problems. * DIFFERENTIAL AND PLAN: Aaliyah Nick is a 59 year old female with PMHx mentioned above who presented with high syncopalepisodes, cardiac workup is negative so far, MRA negative for vertebral insufficiency now concerning for dysautonomia Syncope History of migraine with hemiplegia Patient's history concerning for high-risk syncope. Initial concerns of cardiac arrhythmia and conduction abnormalities has been ruled out. EKG normal sinus rhythm and no conduction abnormalities or arrhythmias seen on the telemetry. Continuous cardiac telemetry monitoring - no episodes of arrhythmia or conduction abnormalities so far TTE -normal Consult Cardiology appreciate recommendations Optimize medication that cause orthostatic hypotension, potentially Effexor and Lyrica C-cam on discharge MRA head and neck without vertebral artery abnormalities Neurology consult placed appreciate recommendations Might consider EEG Orthostatic blood pressure measurement Chronic Problems: Continue MOLD INJECTOR Aspirin HLD: Continue MOLD INJECTOR Lipitor GERD: Continue MOLD INJECTOR Protonix Insomnia: Continue MOLD INJECTOR trazodone Mood disorders: Continue MOLD INJECTOR venlafaxine Misc: Bowel Regimen: None Diet: Regular Carrillo: N/a PT/OT: N/a Code Status: Full Code Anticipated Discharge: TBD PHARMACOLOGIC VTE PROPHYLAXIS: This patient does not have an active medication from one of the medication groupers. CODE STATUS: Full Code EXPECTED DISCHARGE DATE: 03/18/2024 Patient was seen, was examined, and was discussed with Rachel Wilson MD Associated attestation - Rachel Wilson MD - 03/17/2024 6:42 PM EDT I saw and evaluated the patient today. I have reviewed the resident/fellow physician note and agree. I spent a total of 50 minutes coordinating, documenting, and providing care for this patient excluding time spent in the performance of separately billed services. 59 year old woman admitted for recurrent syncopal episodes. Cardiac workup unremarkable today with telemetry showing no arrhythmias and TTE without WMA or valvulopathies. She had episode of syncope today while standing and another episode in the afternoon that occurred at rest. Still has pronator drift on exam but sensory intact today. MRA without any acute findings. Neurology weighed in and feel she could be having seizures. EEG ordered. Dysautonomia also on differential and has been seen in <1% of cases with venalfaxine and pregabalin. If workup is inconclusive, then may need to discuss with patient about tapering down these medications. documented in this encounter H&P Notes * Deep Marley MD - 03/16/2024 3:47 PM EDT GENERAL HISTORY AND PHYSICAL EXAMINATION - HOSPITAL MEDICINE [facility]-[address] [address] Name: Aaliyah Nick Location: 25/X Date: 03/16/2024 Time: 3:49 PM Date of Admission: 03/16/2024 Presenting Problem: Syncope HPI: Patient is a [...] complaints, vision changes, and focal neurologic defecits. Social History: Patient lives at Home. Ambulates freely. Is a non smoker. Does not use alcohol. No illicit or recreational drug use. Patient reports that She would like to be a FULL Code. In case of emergencies, they would like her son and daughter to be contacted. If patient is unable to make decisions for themselves, she would want them to do so on her behalf. 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 Dyslipidemia, goal LDL below 100 Fibromyalgia Gastroesophageal reflux GERD (gastroesophageal reflux disease) Migraine 2007 Hemiplegic Migraine, hemiplegic Sleep apnea Tinnitus Past Surgical History: Past Surgical History: Procedure Laterality Date ALLOGRAFT, MORSELIZED, FOR SPINE SURGERY 10/21/2006 Performed by JOHN BEAL at OR [facility] Log [id number] COLONOSCOPY COLONOSCOPY, DIAGNOSTIC (RECTUM) 11/04/2016 normal, repeat 10 yrs/COLONOSCOPY FLEXIBLE PROXIMAL DIAGNOSTIC performed by Isaac Arellano MD at ENDOSCOPY [facility] EGD, FLEXIBLE, DIAGNOSTIC 02/11/2018 De León's esophagitis, repeat 3 yrs/ESOPHAGOGASTRODUODENOSCOPY (EGD), FLEXIBLE, TRANSORAL, DIAGNOSTIC performed by Isaac Arellano MD at ENDOSCOPY [facility] EGD, FLEXIBLE, DIAGNOSTIC 03/07/2020 inflammation on bx, repeat 3 yrs / ESOPHAGOGASTRODUODENOSCOPY (EGD), FLEXIBLE, TRANSORAL, DIAGNOSTIC performed by Isaac Arellano MD at ENDOSCOPY [facility] EGD, FLEXIBLE, DIAGNOSTIC 12/24/2022 biopsies show mild irritation of stomach/ESOPHAGOGASTRODUODENOSCOPY (EGD), FLEXIBLE, TRANSORAL, DIAGNOSTIC performed by Kimber Bernal DO at ENDOSCOPY [facility] INFORMATION 09/2012 KNEE SURGERY- DR CLAUDIO INJECT FOR SPINE DISK X-RAY, LUMBAR 08/05/2006 Performed by ALEXANDRA GRAHAM at [facility] Log [id number] IR BIOPSY 07/13/2023 LUMBAR SPINE FUSION W/BONE GRAFT 10/21/2006 Performed by JOHN BEAL at [facility] Log [id number] LUMBAR SPINE FUSION W/BONE GRAFT 10/21/2006 Performed by CELESTINA CONNOR at [facility] Log [id number] LUMBAR SPINE FUSION, POSTEROLATERAL 10/21/2006 Performed by JOHN BEAL at [facility] Log [id number] REMOVAL OF TONSILS, AGE 12+ SPINE FIXATION, POSTERIOR, (MARTINEZ) 10/21/2006 Performed by JOHN BEAL at [facility] Log [id number] TOTAL HYSTERECTOMY 2000 done for heavy periods and cysts UPPER GI ENDOSCOPY 02/2018 Family Medical History: Family History Problem Relation Name Age of Onset Heart Disorder Mother Charla Levy heart attack at age 62 Glaucoma Mother Charla Levy Thyroid Disorder Mother Charla Levy Heart failure Mother Charla Levy Cancer Sister Jana Dumont 36 Breast Cancer age 36 No Known Problems Sister nikki No Known Problems Brother No Known Problems Brother No Past Hx None no hx ovarian or colon CA Social History: Social History Tobacco Use Smoking status: Never Passive exposure: Never Smokeless tobacco: Never Tobacco comments: smokes outside Vaping Use Vaping status: Never Used Substance Use Topics Alcohol use: Never Comment: none Drug use: Never Comment: coffee Allergies: Milnacipran hcl, Codeine, Lamictal [lamotrigine], and Morphine Review of Systems: All systems were reviewed, all pertinent findings were documented in the HPI, otherwise negative. Objective CONSTITUTIONAL DATA / OBJECTIVE: Vital Signs (Most Recent): Blood Pressure: 138/86 mmHg Last 12H: Most Recent Systolic BP Av mmHg Min: 117 mmHg Max: 138 mmHg Pulse: 81 Last 12H: Pulse Av Min: 81 Max: 93 Temperature: 36.6 C (97.9 F) Last 12H: Most Recent Temperature Av.6 C Min: 36.61 C Max: 36.61 C Respiratory Rate: 16 O2 Saturation: 98 % Intake & Output Summary (Last 24 hours): No intake or output data in the 24 hours ending 03/16/24 1751 Net IO Since Admission: No IO data has been entered for this period [03/16/24 1892] PHYSICAL EXAM General: normal build, in no acute distress HEENT: Anicteric sclerae, ecchymoses around her eyes Neck: No cervical LAD, non distended JVP Cardiovascular: no murmurs, normal HR Respiratory: Clear to auscultation bilaterally Abdomen: Soft, mild tenderness to palpation in lower abdomen, Musculoskeletal: No visible joint deformity Extremities: no lower extremity edema bilaterally Neuro: Alert, oriented x3, moves all extremities Skin: No rashes, warm, dry and intact Laboratory Values: reviewed. -- Brief labs below include the 7 most recent results over the past week. Latest Reference Range & Units 03/16/24 13:34 Sodium 135 - 146 mmol/L 140 Potassium 3.5 - 5.1 mmol/L 4.0 Chloride 98 - 107 mmol/L 102 CO2 22 - 32 mmol/L 28 BUN 6 - 20 mg/dL 15 Creatinine 0.5 - 1.0 mg/dL 0.8 Estimated Glomerular Filtration Rate >=60 mL/min 84 Anion Gap 7 - 15 mmol/L 10 Glucose 70 - 120 mg/dL 100 Calcium 8.4 - 10.2 mg/dL 9.1 Magnesium 1.5 - 2.6 mg/dL 2.2 Phosphorus 2.5 - 4.8 mg/dL 4.2 Protein 6.0 - 8.3 g/dL 6.8 Latest Reference Range & Units 03/16/24 13:34 CBC Rpt WBC 4.00 - 10.80 K/uL 10.46 RBC 3.85 - 5.15 M/uL 4.51 HGB 12.0 - 15.3 g/dL 13.7 HCT 36.0 - 45.2 % 42.5 MCV 81.5 - 97.5 fL 94.2 MCH 27.0 - 34.0 pg 30.4 MCHC 32.0 - 36.0 g/dL 32.2 RDW 11.5 - 15.5 % 12.6 PLT 140 - 400 K/uL 240 MPV 6.6 - 11.1 fL 11.6 CBC WITH WBC DIFFERENTIAL Rpt Absolute Neutrophils 1.80 - 7.70 K/uL 6.90 Absolute Lymphocytes 1.00 - 4.80 K/ul 2.58 Absolute Monocytes 0.00 - 1.10 K/uL 0.88 Absolute Eosinophils 0.00 - 0.70 K/uL 0.03 Absolute Basophils 0.00 - 0.20 K/uL 0.02 Rpt: View report in Results Review for more information Assessment & Plan Assessment and Plan: Principal Problem: Syncope and collapse (POA: Unknown) Active Problems: Migraine with aura and without status migrainosus, not intractable (POA: Yes) Gastroesophageal reflux (POA: Yes) Sleep disturbance (POA: Yes) POA = Present On Admission Aaliyah Nick is a 59 year old female with PMHx mentioned above who presented with syncopal episodes, concerning for arrhythmia or conduction abnormalities. Vertebral artery dissection remains on the differential. Syncope History of migraine with hemiplegia Patient's history concerning for high-risk syncope. Syncope without any preceding symptoms concerning for cardiac arrhythmia vs conduction abnormalities. Although EKG shows normal sinus rhythm. This could also be secondary to a vertebral artery dissection or insufficiency given presence of pronatordrift on neuro examination. Given the absence of abnormal body movements, urinary incontinence seizure disorder lies below in the differentials. Stroke, TIA, intracranial malignancies lies low in the differentials as no focal neurological deficits and negative CT head. Continuous cardiac telemetry monitoring TTE Consult Cardiology appreciate recommendations MRA head and neck to rule out vertebral artery dissection Orthostatic blood pressure measurement Chronic Problems: Continue MOLD INJECTOR Aspirin HLD: Continue MOLD INJECTOR Lipitor GERD: Continue MOLD INJECTOR Protonix Insomnia: Continue MOLD INJECTOR trazodone Mood disorders: Continue MOLD INJECTOR venlafaxine Misc: Bowel Regimen: None Diet: Regular Carrillo: N/a PT/OT: N/a Code Status: Full Code Anticipated Discharge: TBD Patient was discussed with attending physician, MD Deep Kim MD PGY 1 Internal Medicine This chart was completed in part utilizing [employer] Speech Voice Recognition Software. Grammatical errors, random word insertions, pronoun errors, and incomplete sentences are an occasional consequence of this system due to software limitations, ambient noise, and hardware issues. Any formal questions or concerns about the content, text, or information contained within the body of this dictation should be directly addressed to the provider for clarification. Associated attestation - Rachel Wilson MD - 03/16/2024 6:19 PM EDT I saw and evaluated the patient today. I have reviewed the resident/fellow physician note and agree. I spent a total of 80 minutes coordinating, documenting, and providing care for this patient excluding time spent in the performance of separately billed services. Vitals reviewed in ED - afebrile - normotensive, HR 80-90 - saturating well on RA Labs reviewed - normal troponin - electrolytes unremarkable - normal kidney function - no leukocytosis - no anemia CXR viewed without any notable infiltrates; radiology interpretation similar CT head/brain and C-spine with L periorbital soft tissue swelling, no other acute findings noted Her HPI is concerning for high risk syncope. I discussed at bedside with her son who describes the initial event as her turning her head around and then passing out. Fortunately, a bed was located near her so she fell on to that. She came to soon after falling onto the bed and son did not note any confusion or difficulty speaking. However, after she woke up, said she passed out again while laying flat. She had repeat episode of syncope last night and again today while in the ED getting her blood work done. He also states that she has not been 'herself.' More lethargic and just not as sharp mentally. Also describes that her migraines associated with hemiplegia have been lasting longer than usually - lasted 5 hours the other day which is a lot longer than the timeframe she is used to. Her neurological exam for me was significant for pronator drift of both arms - when asked to hold her arms up, she would. Then she closed her eyes her L arm would drift down then followed by her R arm. Unaware she was even doing this. She also had difficult locating tactile sensation - would get left/right mixed up and also would get upper/lower part of arm and leg mixed up. 59 year old woman admitted with high risk syncope. Her symptoms are concerning for a possible cardiac cause so will continue monitoring her on telemetry and obtain TTE. I am also concerned for a possible neurogenic cause although this presentation would be very odd for this. However, I do feel she warrant further workup with more advanced head imaging to rule out any possible cerebral or carotid artery dissection given mechanism of twisting head and persistent neck pain. She also warrants further advanced brain imaging to rule out old vs small infarct given pronator drift on exam with MRI brain. Thus, MRA head/neck orders as this will help identify both of theabove. documented in this encounter Procedure Notes * Richard Palomares, - 03/18/2024 7:21 AM EDT Electroencephalogram Report GP3, [facility] 3rd Floor [address] [address] Name: Aaliyah Nick Age: [age] year old Study Start Date/Time: 03/17/2024, 19:35 Study End Date/Time: 03/18/2024, 16:37 Location: [facility] G310/B Referring Physician: Aisha Pedersen MD Clinical Summary: Aaliyah Nick is a/an 59 year old female undergoing EEG evaluation for: Epilepsy: clinical suspicion of epilepsy and Other differentials: paroxysmal event of unclear etiology Neuroactive Medications: Effexor, no anti-seizure medications Technical Summary: This digitally acquired electroencephalogram was performed using 21 scalp electrodes in the international 10/20 system placement, with additional scalp, precordial, and other surface electrodes used for electrical referencing and artifact detection. Video monitoring was utilized and reviewed periodically by the physician for electroclinical correlation. Physician access to datawas available throughout the recording. Activation Procedures: Photic stimulation resulted in: bilateral photic driving response Hyperventilation resulted in: no response Background: Normal. Posterior dominant rhythm symmetric. Frequency 11 Hz Alpha Amplitude 20-70 (medium). Organization - organized with an anterior to posterior gradient. Reactivity - present and reactive to external stimuli. Variability - present with distinct states of arousal. Continuity - continuous. Sleep: Drowsiness was observed due to the presence of waxing and waning of the posterior reactive rhythm with eventual replacement by a mixture of Beta, Alpha, and Theta activity., Stage 2 sleep was observed due to the presence of symmetric vertex waves, sleep spindles, and K complexes. Interictal Findings: No evidence of epileptiform abnormalities or focal asymmetries Clinical and Electrographic Events: Event #1, Date/Time: 1009 Duration: 5min Type: Non-Epileptic event Clinical Summary:Patient asked to stand up at bedside, became lightheaded, dizzy and had right arm tremor and was under-responsive. Electrographic Summary: No ictal correlate. Heart Rate Changes: no notable changes Event #2, Date/Time: 1103 Duration:10min Type: Non-Epileptic event Clinical Summary: underresponsive and possible right sided weakness Electrographic Summary: No ictal correlate Heart Rate Changes: no notable changes Summary of Findings: Normal: This EEG is normal. There is no evidence of epileptiform activity or asymmetry. There were 2 psychogenic nonepileptic attacks (PNEA) during this recording. Comparison to Previous Studies: Normal routine EEG 05/10/21 Clinical Comments: Normal - A normal EEG does not confirm or refute the diagnosis of epilepsy. Further Suggestions: This study was adequate for the referral indication. * Britton Abrams DO - 03/16/2024 1:27 PM EDTAssociated Order(s): EKG REASON FOR STUDY: syncope CONCLUSIONS: Normal sinus rhythm High QRS voltage may be normal variant or due to lve ( R in aVL ) Nonspecific T wave abnormality When compared with ECG of 01-Feb-2016 13:07, No significant change was found Ventricular Rate: 97 Atrial Rate: 97 IL Interval: 124 QRS Duration: 86 QT/QTc: 360/457 ms P-R-T [place]: 38 : 9 : 25 degrees documented in this encounter Consult Notes * Tommie Youssef DO - 03/17/2024 4:00 PM EDTAssociated Order(s): NEUROLOGY CONSULT IP CONSULT - Neurology [facility]-[address] [id number] Name: Aaliyah Nick Location: [facility] G310/B Date: 03/17/2024 Time: 4:03 PM Date and Time Neurology Team Notified of Consult: 03/17/2024 at 1600 REQUESTING SERVICE: Hospital Medicine REASON FOR CONSULT: seizure like activity Person Providing History: Patient and and daughter HPI: 59 year old female who follows with Dr. Villasenor for suspected hemiplegic migraines. She began having new syncopal episodes last Thursday03/12/24, for which she is currently hospitalized with medicine for workup of cardiogenic vs dysautonomic syncope. PMH is notable for ; Primary insomnia Dysphagia Barretts esophagus without dysplasia GERD without esophagitis Migraine Fibromyalgia I saw this patient at bedside today. She and her family informed me of her history of 2 event types. - Event type 1: She gets confused, very sleepy, lays down but does not acutely pass out, has decrease responsiveness for over an hour, wakes up weak on the right. Has been having 2 of these a month since 2007. Triggered by stress. - Event type 2: She passes out acutely, sometimes preceded by a few seconds of presyncope, sometimes not, sometimes proceeded some whole body stiffening, and is unconscious for a few seconds. She immediately returns to baseline. First episode was last Thursday, most recent episode was this morning.Of note prior to this episode she was given a 4 day course of steroids for he chronic fibromyalgia pain. She was not able to tolerate orthostatic vitals today due to feeling light headed and passing out in the room. On exam she was mildly weak on the left (likely functional) without other major deficits. When I stood her up, after about two minutes of standing she became light headed, would only respond to any question I asked with "no", had some non- rhytmic twitching in the right hand, and then said"I need to lay down", and lowered herself into bed. She had decreased responsiveness after that butwas actively resisting examination. Family witnessed this and endorsed this as a typical event type 1 episode. Treatment History: Current ASMs: Pregabalin 225 BID Prior ASMs: Topiramate ( Prior migraine PPX unclear why she stopped) Other relevant current drugs Baclofen 20 mg TID PRN (for fibro) Aspirin 81 mg daily (for ? TIA) Lipitor 20 mg (for ? TIA) Nurtec 75 mg PRN for migraine Trazodone 50 mg HS Venlafaxine 150 mg daily for migraine prevention Ever had status epilepticus?: No Epilepsy Risk Factors: High Fevers/Febrile Seizures: Unknown Academic/Developmental/ history: Unknown Prior Seizures: YES Staring Spells: YES Headaches: YES History of Head Injury/LOC: Yes History of Stroke: No Prior Head/Brain Surgeries: No History of CMS EXPERT Infections: Unknown Family History of Seizures: Febrile Seizures: Unknown Seizures/Seizure Disorder Unknown Driving Status: Unknown (must obtain when patient wakes up) Prior Workup: CT HEAD/BRAIN WO CONTRAST: CT HEAD AND CERVICAL SPINE WITHOUT CONTRAST - 03/16/24 IMPRESSION: No evidence of acute infarction or intracranial hemorrhage. Mild left periorbital soft tissue swelling. No acute calvarial or facial bone fracture. No evidence of acute fracture or traumatic malalignment of the cervical spine. Mild multilevel degenerative changes of the cervical spine as described. MRI MRA 03/17/24 IMPRESSION Atherosclerosis at the carotid bifurcations without significant stenosis by NASCET criteria. No significant intracranial stenosis or large vessel occlusion. MRI w/wo contrast 05/02/21 IMPRESSION 1. No acute intracranial abnormality. 2. Small foci of pontine T2 hyperintensity as well as a few scattered supratentorial foci are nonspecific and most frequently associated with hypertension or hypercholesterolemia, among other etiologies. EEG : 05/07/21 Routine EEG IMPRESSION: This is a normal awake and drowsy routine EEG. No focal slowing or epileptiform activity is recorded. 04/28/2008 Routine EEG INTERPRETATION: This EEG is essentially normal during wakefulness. There is no evidence for a focal or generalized encephalopathy and no evidence for a potentially epileptogenic activity. 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 D Eleón's esophagus 02/2018 Dyslipidemia, goal LDL below 100 Fibromyalgia Gastroesophageal reflux GERD (gastroesophageal reflux disease) Migraine 2007 Hemiplegic Migraine, hemiplegic Sleep apnea Tinnitus PAST SURGICAL HISTORY: Past Surgical History: Procedure Laterality Date ALLOGRAFT, MORSELIZED, FOR SPINE SURGERY 10/21/2006 Performed by JOHN BEAL at OR [facility] Log [id number] COLONOSCOPY COLONOSCOPY, DIAGNOSTIC (RECTUM) 11/04/2016 normal, repeat 10 yrs/COLONOSCOPY FLEXIBLE PROXIMAL DIAGNOSTIC performed by Isaac Arellano MD at ENDOSCOPY [facility] EGD, FLEXIBLE, DIAGNOSTIC 02/11/2018 De León's esophagitis, repeat 3 yrs/ESOPHAGOGASTRODUODENOSCOPY (EGD), FLEXIBLE, TRANSORAL, DIAGNOSTIC performed by Isaac Arellano MD at ENDOSCOPY [facility] EGD, FLEXIBLE, DIAGNOSTIC 03/07/2020 inflammation on bx, repeat 3 yrs / ESOPHAGOGASTRODUODENOSCOPY (EGD), FLEXIBLE, TRANSORAL, DIAGNOSTIC performed by Isaac Arellano MD at ENDOSCOPY [facility] EGD, FLEXIBLE, DIAGNOSTIC 12/24/2022 biopsies show mild irritation of stomach/ESOPHAGOGASTRODUODENOSCOPY (EGD), FLEXIBLE, TRANSORAL, DIAGNOSTIC performed by Kimber Bernla DO at ENDOSCOPY [facility] INFORMATION 09/2012 KNEE SURGERY- DR CLAUDIO INJECT FOR SPINE DISK X-RAY, LUMBAR 08/05/2006 Performed by ALEXANDRA GRAHAM at OR [facility] Log [id number] IR BIOPSY 07/13/2023 LUMBAR SPINE FUSION W/BONE GRAFT 10/21/2006 Performed by JOHN BEAL at OR [facility] Log [id number] LUMBAR SPINE FUSION W/BONE GRAFT 10/21/2006 Performed by CELESTINA CONNOR at OR [facility] Log [id number] LUMBAR SPINE FUSION, POSTEROLATERAL 10/21/2006 Performed by JOHN BEAL at OR [facility] Log [id number] REMOVAL OF TONSILS, AGE 12+ SPINE FIXATION, POSTERIOR, (MARTINEZ) 10/21/2006 Performed by JOHN BEAL at OR [facility] Log [id number] TOTAL HYSTERECTOMY 2001 done for heavy periods and cysts UPPER GI ENDOSCOPY 02/2018 FAMILY HISTORY: Family History Problem Relation Name Age of Onset Heart Disorder Mother Charla Levy heart attack at age 62 Glaucoma Mother Charla Levy Thyroid Disorder Mother Charla Levy Heart failure Mother Charla Levy Cancer Sister Jana Dumont 36 Breast Cancer age 36 No Known Problems Sister nikki No Known Problems Brother No Known Problems Brother No Past Hx None no hx ovarian or colon CA SOCIAL HISTORY: Social History Tobacco Use Smoking status: Never Passive exposure: Never Smokeless tobacco: Never Tobacco comments: smokes outside Vaping Use Vaping status: Never Used Substance Use Topics Alcohol use: Never Comment: none Drug use: Never Comment: coffee ALLERGIES: Milnacipran hcl, Codeine, Lamictal [lamotrigine], and Morphine CURRENT MEDICATIONS: Note that completed medications (per the MAR) continue to display for 24 hours. Ordered medicationsto be given in the future also display. Current Facility-Administered Medications Medication Dose Route Frequency Provider aspirin enteric coated tab 81 mg 81 mg Oral Daily(AM) Deep Marley MD atorvaSTATin (Lipitor) tab 20 mg 20 mg Oral Daily(AM) Deep Marley MD Baclofen (Lioresal) tab 20 mg 20 mg Oral TID PRN Deep Marley MD pantoprazole (Protonix) tab 40 mg 40 mg Oral Daily(AM) Deep Marley MD Pregabalin (Lyrica) cap 225 mg 225 mg Oral BID(AM/PM) Rachel Wilson MD sodium chloride 0.9 % flush/inj 3 mL 3 mL IV Push PRN Deep Marley MD traZODone (Desyrel) tab 50 mg 50 mg Oral QHS PRN Arlene Paredes DO venlafaxine XR (Effexor XR) cap 150 mg 150 mg Oral Daily(AM) Deep Marley MD Vitamin B-2 (Riboflavin) tab 400 mg 400 mg Oral Daily(AM) Deep Marley MD ROS: All negative other than as noted in HPI PHYSICAL EXAMINATION: Most Recent Vital Signs: BP: 125 mmHg/79 mmHg (03/17/24 1456) Pulse: 81 (03/17/24 1456) Resp: 17 (03/17/24 145) Temp: 36.78 C (03/17/24 145) Temp Summary: Temp Min: 36 C (96.8 F) Max: 36.8 C (98.2 F) SpO2: 95 % (03/17/241455) O2 flow rate: Supplemental O2 Delivery: Room Air, None (03/17/24 0942) Weight: 88.7 kg (195 lb 9.6 oz) (03/17/24 0448) Height: 170.2 cm (5' 7") (03/16/24 1626) Body mass index is 30.64 kg/m. Vital Signs Last 24 Hours: Systolic BP: Most Recent Systolic BP Av.9 mmHg Min: 103 mmHg Max: 138 mmHg Temperature: Most Recent Temperature Av.6 C Min: 36 C Max: 36.78 C Pulse: Pulse Av.6 Min: 80 Max: 99 Respirations: Resp Av.2 Min: 14 Max: 18 SpO2: SpO2 Av.6 % Min: 95 % Max: 98 % General Examination: Constitutional: Appearance non-obese, no deformities, and well groomed Head/face, ears, nose, throat: normocephalic, atraumatic Psychiatric: normal judgement and insight, normal mood, and normal affect Neurologic Examination: Ophthalmoscopic: Deferred due to inadequate dilation Mental Status and Orientation: awake, alert, oriented x 3 Memory: intact to recent and remote recall Attention: normal Knowledge:normal Language: no aphasia Speech: no dysarthria Cranial Nerves: CN 2 - no visual defect on confrontation and pupils round, equal, reactive to light CN 3, 4, 6 - extra-ocular movements intact and no nystagmus CN 5 - facial sensation intact V1-3 CN 7 - no facial asymmetry CN 8 - intact hearing CN 9, 10 - palate symmetric, uvula midline, no deviation CN 11 - shoulder shrug full strength CN 12 - tongue protrudes midline Sensory: intact to light touch Coordination: intact with finger to nose testing and heel to wisdom normal Gait: Gait exam limited by light headedness. Muscle Tone: normal Muscle exam: strength 5/5 on left upper and lower extremities and no drift. Strength 4+ with giveway weakness at the left deltoid, bicep, tricep, ileopsoas, hamstring, and plantarflexion, 5/5 right abp and fdi and in dorsiflexion Reflexes: Brachioradialis Biceps Triceps Patellar Achilles Plantars Jesu's Right 2+ 2+ 2+ 2+ 2+ downgoing not present Left 2+ 2+ 2+ 2+ 2+ downgoing not present # WITNESSED EPISODE 03/17/24 When I stood her up, after about two minutes of standing she became light headed, would only respond to any question I asked with "no", had some non- rhytmic twitching in the right hand, and then said"I need to lay down", and lowered herself into bed. She had decreased responsiveness after that butwas actively resisting examination. STUDIES: LABS Blood Gas: No results in the last 7 days - inpatent use only Chemistry Panel: Lab results within last 7 days (see chart for full results) Units 03/17/24 0717 03/16/24 1334 Sodium mmol/L 142 140 Potassium mmol/L 4.0 4.0 Chloride mmol/L 104 102 CO2 mmol/L 29 28 BUN mg/dL 14 15 Creatinine mg/dL 0.8 0.8 Estimated Glomerular Filtration Rate mL/min 83 84 Glucose mg/dL 93 100 Calcium mg/dL 8.8 9.1 Magnesium mg/dL -- 2.2 Phosphorus mg/dL -- 4.2 Anion Gap mmol/L 9 10 Complete Blood Count: Lab results within last 7 days (see chart for full results) Units 03/17/24 0717 03/16/24 1334 WBC K/uL 8.80 10.46 HGB g/dL 12.5 13.7 HCT % 39.2 42.5 PLT K/uL 214 240 MCV fL 92.9 94.2 Cardiac Studies: Lab results within last 7 days (see chart for full results) Units 03/16/24 1334 Troponin T, High Sensitivity ng/L <6 Coagulation Studies: Lab results within last 7 days (see chart for full results) Units 03/16/24 1334 D-Dimer ug/mL FEU 0.27 Liver Function Panel: Lab results within last 7 days (see chart for full results) Units 03/16/24 1334 Albumin g/dL 3.8 Protein g/dL 6.8 Bilirubin, Total mg/dL 0.2 AST U/L 14 ALT U/L 15 Alkaline Phosphatase U/L 85 Infectious Studies: No results in the last 7 days - inpatent use only Cultures: reviewed. Recent Cultures (2 Weeks) No lab values to display. Lipids: Lab Results Component Value Date/Time LDL CHOLESTEROL (CALCULATED) - [facility] 44 11/26/2023 07:55 AM LDL CHOLESTEROL (CALCULATED) - [facility] 146 (H) 09/13/2018 08:14 AM LDL CHOLESTEROL (DIRECT MEASURE) - [facility] 134 (H) 11/11/2021 03:06 PM LDL CHOLESTEROL (DIRECT MEASURE) - [facility] NOT APPLICABLE 01/04/2014 07:43 AM A1C: No results found for: "HEMOGLOBIN A1C" TSH: Lab Results Component Value Date/Time TSH - [facility] 1.10 03/16/2024 01:34 PM TSH - [facility] 0.68 08/02/2020 11:01 AM RECENT IMAGE RADIOLOGIST IMPRESSIONS MRA NECK WO CONTRAST Result Date: 03/17/2024 IMPRESSION Atherosclerosis at the carotid bifurcations without significant stenosis by NASCET criteria. No significant intracranial stenosis or large vessel occlusion. MRA HEAD WO CONTRAST Result Date: 03/17/2024 IMPRESSION Atherosclerosis at the carotid bifurcations without significant stenosis by NASCET criteria. No significant intracranial stenosis or large vessel occlusion. CT HEAD/BRAIN WO CONTRAST Result Date: 03/16/2024 IMPRESSION: No evidence of acute infarction or intracranial hemorrhage. Mild left periorbital soft tissue swelling. No acute calvarial or facial bone fracture. No evidence of acute fracture or traumatic malalignment of the cervical spine. Mild multilevel degenerative changes of the cervical spine as described. I have personally reviewed this examination and agree with the resident/fellow physician's interpretation. CT C SPINE WO CONTRAST Result Date: 03/16/2024 IMPRESSION: No evidence of acute infarction or intracranial hemorrhage. Mild left periorbital soft tissue swelling. No acute calvarial or facial bone fracture. No evidence of acute fracture or traumatic malalignment of the cervical spine. Mild multilevel degenerative changes of the cervical spine as described. I have personally reviewed this examination and agree with the resident/fellow physician's interpretation. XR CHEST 1 VIEW Result Date: 03/16/2024 IMPRESSION: No acute findings in the chest. OTHER STUDIES REVIEWED - TTE normal - MRA negative for hemodynamically significant stenosis IMPRESSION: 59 year old female who follows with Dr. Villasenor for suspected hemiplegic migraines. She began having new syncopal episodes last Thursday03/12/24, for which she is currently hospitalized with medicine for workup of cardiogenic vs dysautonomic syncope. Neurology evaluated the patient for possible seizures and she had one of her typical events of altered mentation and right sided movents in the room followed by decreased responsiveness which is typical for the events she has been having since 2007 per family. She had right UE and LE giveway weakness otherwise normal exam prior to the event on 03/17. She has had workup for these episodes in the past including MRI brain with an without contrast in 2020 with nonspecific symmetric non enhancing t2 hyperintensities in the midline real and bilateral lateral thalami with mild homogenous relative hyperintensity of the bilateral hippocampi, without any obvious epileptogenic lesion. Presentation is most consistent with PNEA, however frontal lobe seizures can look like this. RECOMMENDATIONS / PLAN: - Stat LTM hookup - MRI of the brain epilepsy protocol (aka MRI brain with and without contrast with thin cuts through the temporal lobe) - Stat vitals, and EKG, recommend primary team review telemetry from the time of the the event around 5:30 - Hold off on ativan and other Antiseizure meds unless patient is in clinical status (feel free to reach out to neurology resident mobile phone salesperson if uncertain) The patient was examined and was discussed with Dr. Thapa. Associated attestation - Kahlil Thapa MD - 03/18/2024 5:20 PM EDT I saw and evaluated the patient 03/17. I have reviewed the resident/fellow physician note and agree. Seizure vs PNEA, recommend LTM * Jim Rodriguez MD - 03/16/2024 7:08 PM EDTAssociated Order(s): CARDIOLOGY CONSULT IP Images from the original note were not included. Cardiology Inpatient Consultation Note [facility] [place] [address] [place] [address] Name: Aaliyah Nick Location: [facility] G310/B Date: 03/16/2024 Time: 7:08 PM Requesting service: Medicine Reason for consultation: syncope Subjective HPI: Aaliyah Nick is a 59-year-old woman with fibromyalgia and complex migraines who presents to [facility] ED for second opinion on recent syncope. She was in her usual state of health when she suffered a syncopal episode 4 days ago. 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 She became lightheaded near the bottom of the steps and the next thing she remembers she woke up on the floor. She struck her head on a table. She lost consciousness. No post-ictal type symptoms thereafter. She was taken upstairs by family and placed in bed and suffered another episode of loss of consciousness approximately 30 minutes later while lying in bed. This episode lasted approximately 20 seconds. No prodromal symptoms. Again, no post-ictal like symptoms thereafter. She went to the [facility] ED for evaluation and was discharged and told it was dehydration. The following day she just felt off. She had a sense of disequilibrium/unsteadiness while ambulating. She saw her PCP who ordered anechocardiogram (not yet performed) and Ziopatch (she is currently wearing it). Then 2 days ago, shesuffered another episode of loss of consciousness while walking out of her son's bedroom. No prodrome. Her son describes the instance as her hands dropping, her head dropping back, and her falling straight backwards onto his bed. She quickly came back to consciousness and shortly thereafter lost consciousness again for a few seconds. Yesterday she felt OK. Today, decided to drive to [facility] ED for second opinion of recurrent syncope. Vitals and blood work in the ED normal. ECG with normal sinus rhythm. Apparently she suffered vasovagal syncope in the ED during a blood draw. She has a history of 2 prior episodes of such getting her injection migraine headache in the past. Otherwise she has long-standing orthostasis that has never resulted in syncope. ROS: Comprehensive 14-point ROS performed and negative unless otherwise stated in above HPI. PMH/PSHx: - GERD - Fibromyalgia - Complex migraines Fam Hx: - Mother: CAD with [place] at age 62, HF - No family history of syncope or SCD Soc Hx: Lives in [place]. Never smoker. No alcohol or drug use. Allergies: Milnacipran hcl, Codeine, Lamictal [lamotrigine], and Morphine Home cardiac medications: - Aspirin 81 mg daily - Atorvastatin 20 mg daily Physical Exam Most recent VS: BP: 138 mmHg/86 mmHg (03/16/241624) Pulse: 81 (03/16/241624) Resp: 16 (03/16/241624) Temp: 36.61 C (03/16/241624) Temp Summary: Temp Min: 36.6 C (97.9 F) Max: 36.6 C (97.9 F) SpO2: 98 % (03/16/241624) O2 flow rate: Supplemental O2 Delivery: Room Air, None (03/16/241624) Tele: normal sinus rhythm Gen: lying in bed in no acute distress HEENT: moist mucous membranes, normal conjunctiva Pulm: normal effort on ambient air; lungs CTAB CV: regular rate and rhythm; no murmurs, rubs, or gallops; no peripheral edema; JVP not elevated Abd: soft, non-tender, non-distended, no rebound or guarding Integ: no rashes or lesions Neuro: alert, fully oriented; no gross focal neurological deficits Pysch: mood congruent with affect Pertinent labs and imaging: All pertinent laboratories and radiographic data was personally interpreted. - BUN/Cr 15/0.8 - WBC 10.5, Hgb 13.7, plt 240 - HS-cTn < 6 ng/L - 12-lead ECG (03/16/2024): normal sinus rhythm without acute ischemic change Assessment and Plan: Aaliyah Nick is a 59-year-old woman with fibromyalgia and complex migraines presenting with recurrent syncope. Syncope Vasovagal syndrome Patient presenting with what sounds like 2 distinct syncope syndromes. She has prior history of vasovagal syncope with injections such as medications and blood draws, one of which she experienced in the ED today. However, more recently she has had 4 episodes of syncope without a prodrome both whileambulating and while supine. History is not suggestive of orthostasis. Certainly her med list has so me potential offending agents such as pregabalin and baclofen both of which are well known to causedizziness. There are features of her clinical presentation consistent with arrhythmic syncope. Luckily, she was wearing her ZIO patch and we will have the data at some point, just not soon. I recommend the primary medicine team perform the standard work-up for syncope while also keeping an open differential diagnosis to include seizure, etc. Recommendations: - Continuous telemetry monitoring to assess for arrhythmic/electrical causes of cardiac syncope (e.g. melissa- or tachyarrhythmias) - Obtain urine drug screen - Obtain orthostatic vital signs and document in the chart - Obtain transthoracic echocardiogram (TTE) to assess for structural cardiac causes of syncope - Let's start with the above and see what comes up, at this time I would not advocate for electrophysiology study (EPS) Patient was seen independently overnight. To be staffed with attending physician in the AM. Preliminary impression and recommendations communicated to primary team. Jim Rodriguez MD Cardiovascular Medicine Fellow, PGY-4 [facility] [facility] [place] [address] [place] [address] Associated attestation - Dafne Riddle DO - 03/18/2024 4:10 PM EDT I saw and evaluated the patient 03/17/2024. I have reviewed the resident/fellow physician note and agree. 59 year old female with a history of fibromyalgia, complex migraines, prior vasovagal syncope who presented with recent history of syncope. Patient had episode this morning when she became dizzy and syncopized while standing up. Episode lasted few seconds. She was noted to a drop in BP to 103/77 with HR 97 during the episodes. Baseline SBP ~ 130s. Review of telemetry corresponding to event time shows that the patient remained in sinus rhythm throughout. TTE reviewed. Preserved EF, normal valves, no WMA. Differential remains broad for cause of patient's symptoms - orthostatic hypotension (as evidenced with this morning's episode), arrhythmia (none so far on telemetry however including during syncopalepisode), autonomic dysfunction, complex migraine, and possible contribution from her medications (venlafaxine, pregabalin). I spent a total of 40 minutes coordinating, documenting, and providing care for this patient excluding time spent in the performance of separately billed services. documented in this encounter Nursing Notes * BasDavid fofana RN - 03/18/2024 11:10 AM EDT At approximately 1100 nursing called an BARREL BUILDER/stroke alert at the request of Rachel Wilson MD who found to pt be unresponsive & was unarouseable to shout or sternal rub. VS were obtained & charted. After about 2 minutes pt exhibited twitching of their R hand & then aroused spontaneously.Pt reported weakness & tingling in RLExt & confirmed that all symptoms charted are baselinefor her her syncopal episodes. Linda came to [facility] for eval. Will continue to monitor. * Melodie Brantley RN - 03/17/2024 6:33 PM EDT 1715- Neurology service at bedside standing patient she became lightheaded and need to sit down. Ptplaced back in bed. Not responding to questions and curled up on left side and became unresponsive.Occasional twitching of eyes and R hand. Dr. Wilson and Dr. Marley made aware. Pt back to baseline at 1800 AOX4. EEG order for patient. * Melodie Brantley RN - 03/17/2024 10:09 AM EDT During positional BP while standing pt became dizzy and passed out on to bed with nurse assistance.Pt aroused and returned to baseline within seconds. Medicine [place] team with Dr. Wilson made aware. BP during event 103/77 HR 97. Post event HR 88 Bp 138/81. * Tanna Shepard RN - 03/17/2024 3:43 AM EDT Patients Ziopatch to left chest was removed for MRI/MRA procedure. Dr. Arlene Paredes service provider mobile phone salesperson made aware. * Ivanna Parikh RN - 03/16/2024 4:54 PM EDT Dual Licensed Skin Assessment completed by Ivanna Parikh RN and Jacklyn Hawley RN. The patient is/has a N/A Skin Breakdown (includes non blanchable erythema): No documented in this encounter ED Notes * Kevin Holm MD - 03/16/2024 1:50 PM EDT HISTORY OF PRESENT ILLNESS Aaliyah Nick is a 59 year old female with PMH complex migraine, fibromyalgia who presents to the ED for evaluation of Syncope. The patient was seen at 03/16/24 1345. Aaliyah states since Thursday she began experiencing multiple episodes of syncope. She states the 1sttime she was walking into her living room when she began feeling lightheaded and suddenly passed out. She states yesterday and today she had 2 other syncopal episodes. She states the 1st 1 she was walking into her bedroom and had a syncopal episode. She denies experiencing any lightheadedness, chest pain, shortness of breath before she syncopized. The 2nd time she was walking to her son's bedroomand again she did not experiencing any prodromal symptoms including lightheadedness, chest pain, shortness of breath. She states she was never had the syncopal episodes before. She states it is typically when she was walking she has a episodes. She denies any recent viral illnesses, fever, chills, nausea, vomiting, or diarrhea. She denies any recent changes to medications. She denies any significant changes to her diet. She states she was not under any significant new stressors. She was evaluated on Thursday at [facility]. They performed labs and CT head which were otherwise unremarkable. Her PCP placed her on a ZIO patch which she currently has in place. She also arrived complaining of midline cervical spine tenderness after her fall last night. The patient's allergies, past history, and medications were reviewed. PHYSICAL EXAM Initial Vitals (see all): BP 122/80 | Pulse 93 | Resp 18 | Temp 97.9 | O2 100 %, Room Air, None | Weight 89.27 kg | Height 170.2 cm | BMI 30.82 kg/m2 Initial Pain Assessment (see all): 5 (moderate pain)/10, location: back neck ([facility] Adult Scale 0-10) Physical Exam Vitals and nursing note reviewed. Constitutional: General: She is not in acute distress. Appearance: She is well-developed. HENT: Head: Normocephalic and atraumatic. Eyes: Conjunctiva/sclera: Conjunctivae normal. Neck: Comments: Midline cervical spine tenderness Cardiovascular: Rate and Rhythm: Normal rate and regular rhythm. Heart sounds: No murmur heard. Pulmonary: Effort: Pulmonary effort is normal. No respiratory distress. Breath sounds: Normal breath sounds. Abdominal: Palpations: Abdomen is soft. Tenderness: There is no abdominal tenderness. Musculoskeletal: General: No swelling. Cervical back: Neck supple. Skin: General: Skin is warm and dry. Capillary Refill: Capillary refill takes less than 2 seconds. Neurological: General: No focal deficit present. Mental Status: She is alert. Psychiatric: Mood and Affect: Mood normal. PROCEDURES AND TREATMENTS ED Orders | ED Results MEDICAL DECISION MAKING Nursing notes and vital signs were reviewed. ED consults were placed. ED Course as of 03/16/242144Mar 16, 2024 132 TRIAGE: seen at [facility] ED 03/12 after syncopal episode with light - headed prodrome. Negative workup dc home. Has had two syncopal episodes since, one last night without any prodrome, while walking, landing on bed. Reports new neck pain with + c spine ttp. Collar placed. Has a zio patch on from her pcp. No other complaints on arrival. [ED] 1421 WBC: 10.46 [GR] 1421 Troponin T, High Sensitivity: <6 [GR] 1421 Creatinine: 0.8 [GR] 1421 Sodium: 140 [GR] 1421 Potassium: 4.0 [GR] 1422 XR Chest 1 View On my personal interpretation of her chest x-ray there are no signs of large consolidations concerning for pneumonia. There are no large pleural effusions. She was no pneumothorax. ZIO patch is in place. [GR] 1422 EKG On my personal interpretation of her EKG she was in normal sinus rhythm. No signs of tachyarrhythmias. There are no signs of heart blocks. Her intervals are within normal limits. [GR] 1502 Phosphorus: 4.2 [GR] 1502 Magnesium: 2.2 [GR] 1502 CT C Spine without contrast IMPRESSION: No evidence of acute infarction or intracranial hemorrhage. Mild left periorbital soft tissue swelling. No acute calvarial or facial bone fracture. No evidence of acute fracture or traumatic malalignment of the cervical spine. Mild multilevel degenerative changes of the cervical spine as described. [GR] 1513 D-Dimer: 0.27 [GR] ED Course User Index [ED] Alyson Romero PA-C [GR] Amy Pickens MD Differential Diagnoses Based on my history, physical exam, and evaluation, the differential includes, but is not limited, to the following diagnoses: Arrhythmia, seizure, electrolyte abnormality. Aaliyah Nick is a 59 year old female with PMH complex migraine, fibromyalgia who presents to the ED for evaluation of syncope. Aaliyah has had 3 syncopal episodes and Thursday. She states her initial syncopal episode led to her hitting her head on her dining room table. She was evaluated at [facility]. Her workup was negative so she was discharged home. She has had 2 further syncopal episodes. She states that 2 syncopal episodes was not preceded by chest pain, shortness of breath, lightheadedness or any other prodromal symptoms. Given that her symptoms were not preceded with prodromal symptoms she was a high syncope risk. My personal interpretation of her EKGs demonstrated above. Her workup was otherwise unremarkable. However given her concerning symptoms we discussed with the medicine provider regarding admission for telemetry monitoring. Her CT head and C-spine were unremarkable. On my repeat evaluation she continued to have midline C-spine tenderness. We placed her in an aspen collar. Her care was transferred to the medicine provider without further complications. Amount and/or Complexity of Data Reviewed Labs: ordered. Decision-making details documented in ED Course. Radiology: Decision-making details documented in ED Course. ECG/medicine tests: Decision-making details documented in ED Course. Risk Decision regarding hospitalization. Clinical Impressions Syncope Disposition Admitted. I discussed the management of this patient with the admitting provider and I made a decision to admit the patient. Admission Order Ordered Status . 03/16/24 1533 Admit for Inpatient Services (incl ZPO) ONCE Completed Kevin Holm was the attending physician who supervised the care of this patient. Amy Pickens MD ATTENDING ATTESTATION I have seen and examined this patient on the 03/16/2024 visit. I have discussed the patient's management with the provider listed above and agree with the note, findings, and plan of care. A CT head was ordered. I interpreted this study and found no acute intracranial pathology. * Tisha Delgado RN - 03/16/2024 1:27 PM EDT Pt passed out 3 times since Thursday. Pt was seen in [facility] on Thursday for first time passes out. Has L ecchymosis from that fall around L eye. Last night passed out again onto bed. Pt states is having mid back neck pain radiating to sides, stiff collar applied Pt does have Zio patch on, placed Thursday. documented in this encounter Miscellaneous Notes * Communication - Richard Palomares DO - 03/18/2024 11:34 AM EDT EEG UPDATE note: Initial EEG starting at 03/18/24, 0400 reviewed until 1130 Background: 9Hz PDR, normal awake asleep background Interictal/Ictal findings: neither Asymmetries nor Seizures nor Epileptiform discharges Event #1, Date/Time: 1009 Duration: 5min Type: Non-Epileptic event Clinical Summary:Patient asked to stand up at bedside, became lightheaded, dizzy and had right arm tremor and was under-responsive. Electrographic Summary: No ictal correlate. Heart Rate Changes: no notable changes Event #2, Date/Time: 1103 Duration:10min Type: Non-Epileptic event Clinical Summary: underresponsive and possible right sided weakness Electrographic Summary: No ictal correlate Heart Rate Changes: no notable changes Diagnostic Significance: Normal Full daily report to follow after 4 am. Please page the EEG reader mobile phone salesperson at the [facility] Epilepsy/Adult EEG provider [facility] role with any questions or concerns. * Communication - Deep Marley MD - 03/18/2024 11:20 AM EDT Brief rapid response note: Rapid response called at at 11 AM for unresponsiveness and presence of twitching of right arm. Patient evaluated at bedside. Was more awake. Endorses some left lower extremity weakness and confusions. Vitals BP 141/81 | Pulse 98 | Temp 36.7 C (98 F) (Tympanic) | Resp 20 | Ht 1.702 m (5' 7") | Wt 90.7 kg (199 lb 14.4 oz) | SpO2 95% | BMI 31.31 kg/m | BSA 2.07 m Physical exam: Alert oriented to time place and person. No apahsia Eye movement intact Tactile sensation intact Strength in lower and upper extremity 4/5 Pronator drift present. No focal neurological deficits AP Aaliyah Nick is a 59 year old female admitted for recurrent syncopal attacks. Cardiac work up negative so far. Telemetry remains without any conduction abnormality. Stroke less likely given no focal neurological deficits. Had a EEG monitor on during the episode. Orthostatic vitals positive this AM. This could likely be a psychogenic seizure vs potential dysautonomia. IV bolus 1000 ml Neurology recommendations appreciated Will await EEG report Will hold CTH given no neurological episodes Continuous cardiac exercise specialist Will decrease dosage of effexor gradually as it has a potential side effect that could cause dysautonomia. Deep Marley MD Internal Medicine Resident - PGY 1 * Care Plan - Tanna Shepard RN - 03/18/2024 6:36 AM EDT Problem: Actual & Potential for Falls Goal: Patient will remain free of falls. Outcome: Progressing Clinical Goal(s): pt will remain free from injury (03/17/241999) Possible barriers to meeting goal(s)/advancing plan of care: LTM, weakness, hx of fall Stability of the patient: Moderately unstable - medium risk of patient condition declining or worsening Summary regarding today's goal(s): Met: pt did not fall Recommendations: Continue falls precautions, assist with ADLs prn * Communication - Margo Baltazar DO - 03/17/2024 8:55 PM EDT Baseline continuous video-EEG monitoring report: Video-EEG was reviewed from 19:35 on 03/17/2024 to 20:54 on 03/17/2024. There is the typical anterior to posterior voltage and frequency gradient, with a posterior dominant rhythm of 11 Hz. This study is normal thus far.. There were no seizures or epileptiform discharges. This is a preliminary, baseline EEG study interpretation. The full EEG report will follow in the morning. Margo Baltazar DO 03/17/2024 8:55 PM * Care Plan - Melodie Brantley RN - 03/17/2024 6:59 PM EDT Problem: Pain & Impaired Comfort Goal: Patient's pain & discomfort is manageable. Outcome: Progressing Problem: Risk for Impaired Physical Mobility Goal: Patient will maintain optimal mobility level. Outcome: Progressing Clinical Goal(s): Patient willl remain free from any injuries (03/17/24 0800) Possible barriers to meeting goal(s)/advancing plan of care: passing out Stability of the patient: Moderately stable - low risk of patient condition declining or worsening Summary regarding today's goal(s): Met: Patient was able to remain free from any injuries Recommendations: continue to assist pt and stay with her. * Communication - Tommie Youssef DO - 03/17/2024 6:03 PM EDT Neurology Brief Communication Note I saw this patient at bedside today. She and her family informed me of her history of 2 event types. - Event type 1: She gets confused, very sleepy, lays down but does not acutely pass out, has decrease responsiveness for over an hour, wakes up weak on the right. Has been having 2 of these a month since 2007. Triggered by stress. - Event type 2: She passes out acutely, sometimes preceded by a few seconds of presyncope, sometimes not, sometimes proceeded some whole body stiffening, and is unconscious for a few seconds. She immediately returns to baseline. First episode was last Thursday, most recent episode was this morning. On exam she was mildly weak on the left (likely functional) without other major deficits. When I stood her up, after about two minutes of standing she became light headed, would only respond to any question I asked with "no", had some non- rhytmic twitching in the right hand, and then said"I need to lay down", and lowered herself into bed. She had decreased responsiveness after that butwas actively resisting examination. Family witnessed this and endorsed this as a typical event type 1 episode. PLAN I spoke with primary team and recommended holding off on ativan for the moment as event clinical picture is more consistent with PNEA than seizure. I also receommended stat LTM hookup of EEG, EKG, and stat vitals. She is already on telemetry. Give Ativan 2 mg IV push stat if patient begins to have sustained clinical convulsions. If in doubtreach out to neurology. Otherwise hold off on AEDs until LTM is connected. Remainder of recommendations can be found in the full consult note. Reach out to mobile phone salesperson neurology resident with any questions. Tommie Youssef D.O. Case was discussed and patient seen with Dr. Thapa * Ancillary Progress Note - Christy Conner RN - 03/17/2024 10:18 AM EDT CARE MANAGEMENT - ADULT INITIAL SCREENING [facility] [id number] Name: Aaliyah Nick Location: [facility] G310/B Date: 03/17/2024 Time: 10:18 AM Discussed patient with the interdisciplinary care team. This Trestle Mainternance Laborer performed a chart review and met with patient at bedside to complete admission screen and assessed needs for transition planning. The home care administrator role and services were explained and emotional support was provided. Chief Complaint: Syncope Prior Living Arrangements What was your living situation prior to admission/observation?: Independently;With Child (son and [id number]) (03/17/241016) Living Quarters: House (03/17/241016) Do you have serious difficulty walking or climbing stairs? (5 years old or older): No (03/16/241625) History of falling: Yes (03/16/241999) Prior Level of Functioning Describe the patient's ability prior to admission/observation to perform ADLs: Performs independently (03/17/241016) Describe the patient's mobility status prior to admission: Patient ambulates independently (03/17/241016) Patient uses assistive device: No (may need/want RW for discharge) (03/17/241016) Caregiver Information Patient Contacts Name Relation Home Work Mobile Lazaro Nick Adult Child [phone] Noe Nick Adult Child [phone] Risk Stratification/Psychosocial/Care Gaps Risk Stratification Psycho Social / Medical Concerns Identified: Adjustment to illness/injury;Multiple Comorbidities;New serious diagnosis (03/17/241016) Readmission Risk Score: 7.43 (03/17/24 0801) Prior to Admission Services Services Prior to Admission MOLD INJECTOR Services (Services received within the last 30 days with exception, Psych within last two years): N/A (03/17/241016) [place] Dept[place] of Aging (PDA) Waiver Program: N/A (03/17/241016) MOLD INJECTOR Transportation (Services received within the last 30 days): Family/Friends Personal Vehicle (03/17/241016) Outpatient Trestle Mainternance Laborer: No care stationary steam engineer to display Patient/Family Expectations: return home. Patient is independent at baseline. Family provides transportation. Patient declines need for home health at this time; may need/want Rolling Walker for discharge. For further screening information, please refer to the Care Management flow document. * Care Plan - Tanna Shepard RN - 03/17/2024 6:01 AM EDT Problem: Actual & Potential for Falls Goal: Patient will remain free of falls. Outcome: Progressing Clinical Goal(s): pt will remain free from falls (03/16/241999) Possible barriers to meeting goal(s)/advancing plan of care: hx of syncope, weakness, hospitalization Stability of the patient: Moderately unstable - medium risk of patient condition declining or worsening Summary regarding today's goal(s): Met: pt did no fall Recommendations: Continue fall and safety precautions. * Medical Necessity - Judy Piper RN - 03/16/2024 4:41 PM EDT AdmissionCare Guideline: Syncope - INPT, Inpatient Based on the indications selected for the patient, the bed status of Inpatient was determined to beNOT MET The following indications were selected as present at the time of evaluation of the patient: Additional Information: 59 year old female with PMH complex migraine, fibromyalgia who presents to the ED for evaluation ofSyncope. Seen at outside ED 03/12 after syncopal episode with light - headed prodrome. Negative workup dc home. Has had two syncopal episodes since, one last night without any prodrome, while walking, landing onbed. Reports new neck pain with + c spine ttp. Collar placed. Has a zio patch on from her pcp. Treatment: NPO telemetry AdmissionCare documentation entered by: Judy Piper [facility] [employer], 27th edition, Copyright 2022 [facility] [employer], [employer] All Rights Reserved. [id number]:41:14-04:00 Solely for purpose of utilization review and payment; not a diagnostic tool * ED Supervisor Pipe Joints Note - Celi Bullock RN - 03/16/2024 3:41 PM EDT Hand-Off - Nurse Communication Note Name: Aaliyah Nick Location: Date: 03/16/2024 Time: 3:41 PM Sending to: GP3 Safety Concerns: Fall Risk Allergies: Milnacipran hcl, Codeine, Lamictal [lamotrigine], and Morphine Code Status: Not on file Isolation: None Isolation flowsheet: Special Needs: pt had syncopal episode in triage; be cautious if attempting to stand pt Special Needs comments: Attention to: Jacklyn Hawley RN Report from: Celi Bullock RN Phone extension: [phone] Patient arriving via: Stretcher Reason for SBAR handoff: Admission Situation/Background Admission date: 03/16/2024 Patient Service: Medicine Admit 1 [[id number]] Attending Provider: Camron Sandhu DO Admitting diagnosis: Syncope Chief Complaint: Syncope Problem list: Active Problems: * No active hospital problems. * Resolved Problems: * No resolved hospital problems. * Level of Care: Med Surg [3] Assessment Vital Signs: BP: 117/80 (03/16/24 1500) Temp: 36.6 C (97.9 F) (03/16/24 1323) Pulse: 81 (03/16/24 1500) Resp: 13 (03/16/24 1500) SpO2: 96 % (03/16/24 1500) Glucose (Bedside): 102 (03/16/24 1338) Weight: 89.8 kg (198 lb) (03/16/24 1323) Fall Scale: Fall Score: 40 (03/16/24 1353) Fall Interventions: Bed at low level;Floor free of clutter;Walk path free of obstacles (03/16/24 1353) Neurological: Miller Coma Scale Eyes Open: Spontaneous (03/16/24 1400) Best Verbal Response: Verbally appropriate for age (03/16/24 1400) Best Motor Response: Obeys commands appropriate for age (03/16/24 1400) Coma Score: 15 (03/16/24 1400) Additional Neurological Information: n/a Respiratory: Respiratory WNL: WNL- within normal limits (03/16/24 1400) Oxygen therapy/ Mechanical vent Supplemental O2 Delivery: Room Air, None (03/16/24 1500) Additional Respiratory Information: n/a Cardiac: Rhythm: Regular;NSR (03/16/24 1400) Capillary Refill: 2 sec (03/16/24 1400) Additional Cardiac Information: n/a GI/: Abdomen: Soft;Non-distended;Non-tender (03/16/24 1400) Additional GI/ Information: n/a Integumentary: Skin Description: Warm;Dry (03/16/24 1400) Skin Color: Nail beds pink;Mucus Membranes [place];Flesh Tone (03/16/24 1400) Additional Integumentary Information: n/a Restraints: No orders of the defined types were placed in this encounter. Lines: Labs: Labs This Encounter COMPREHENSIVE METABOLIC PANEL - Normal TROPONIN T, HIGH SENSITIVITY - Normal DIFFERENTIAL, AUTOMATED - Normal MAGNESIUM - Normal PHOSPHORUS - Normal D-DIMER - Normal Narrative: Rheumatoid factor at a level above 50 IU/mL may lead to an overestimation of the D-dimer level. A normal D-dimer result (<0.50 ug/mL FEU) has a negative predictive value of approximately 95% for the exclusion of acute pulmonary embolism (PE) or deep vein thrombosis when there is low or moderate pretest PE probability. Increased D-dimer values are abnormal but do not indicate a specific diseasestate and the D-dimer increase does not definitively correlate with clinical severity of disease. GLUCOSE METER, POINT OF CARE - Normal CBC WITH WBC DIFFERENTIAL Narrative: The following orders were created for panel order CBC WITH WBC DIFFERENTIAL. Procedure Abnormality Status --------- ------ CBC[[id number]] Final result DIFFERENTIAL, AUTOMATED[[id number]] Normal Final result Please view results for these tests on the individual orders. EXTRA LIGHT BLUE TOP CBC GLUCOSE METER, POINT OF CARE (COMMUNICATION ORDER) Diet: No orders of the defined types were placed in this encounter. Additional Diet Information: n/a Intake and Output: No intake or output data in the 24 hours ending 03/16/24 1541 Patient Belongings and Home Medications Recommendations/Follow up Goals/Plan of Care: monitor on tele; determine cause of syncope Consults not completed: admitting service Anticipated tests/studies/procedures: unknown at this time Medication Reconcilliation completed for this Admission? Yes documented in this encounter Plan of Treatment Upcoming Encounters Date Type Department Care Team (Late st Contact Info) Description 03/28/2024 10:30 AM EDT Imaging Radiology, [address] [place] [address] 04/25/2024 8:15 AM EDT Cardiac Studies Cardiac Studies, [facility] [address] [facility] [place] [address] 05/11/2024 3:00 PM EDT Office Visit Gynecology/Obstetrics [facility] [address] [facility] [place] [address] Louann Brooks PA-C 132 [facility] [place] [address] 06/17/2024 1:00 PM EDT Office Visit Orthopaedics Spine Surgery, [facility] [address] [facility] [place] [address] Cholo Miramontes MD [address] [place] [address] [place] [address] 12/02/2024 1:40 PM EST Office Visit Family [place] [address] [place] [phone] Ema Ward MD [address] [place] [address] 12/20/2024 12:00 PM EDT Office Visit Gynecology/Obstetrics [facility] [address] [facility] [place] [address] Nemo Palmer CRNP 132 [facility] [place] [address] 03/02/2025 2:20 PM EDT [place] [address] [place] [address] Chelsey Slaughter PA-C [address] [place] [address] [place] [id number] Scheduled Procedures Name Priority Associated Diagnoses Date/Ti [...] this encounter Medical Devices Implanted Type Area Telephone Operators Supervisor Device Identifier Shelf Expiration Date Model / Serial / Lot Graft Infus Bone Lg Ii [id number] - [id number] Implanted:Qty : 1 on 10/21/2006 at OR [facility] N/A: Spine Lumbar Medtronic Sofamor [place] [id number] / / [id number] Screw Canc 6.5mm 216.030 - [id number] Implanted:Qty : 1 on 10/21/2006 at OR [facility] N/A: Spine Lumbar SYNTHES 216.030 / / Washer 13.0mm 219.99 - [id number] Implanted:Qty : 1 on 10/21/2006 at OR [facility] N/A: Spine Lumbar SYNTHES 219.99 / / Acromed [id number] [place] - [id number] Implanted:Qty : 4 on 10/21/2006 at OR [facility] N/A: Spine Lumbar DEON & DEON DEPUY [id number] / / Acromed [id number] [place] - [id number] Implanted:Qty : 4 on 10/21/2006 at OR [facility] N/A: Spine Lumbar DEON & DEON DEPUY [id number] / / Graft I/C Chamber 10cc [id number] - [id number] Implanted:Qty : 1 on 10/21/2006 at OR [facility] N/A: Spine Lumbar LIFENET [id number] / [id number] / Acromed [id number] [place] - [id number] Implanted:Qty : 2 on 10/21/2006 at OR [facility] N/A: Spine Lumbar DEON & DEON DEPUY [id number] / / Spacer Frame Implanted:Qty : 1 on 10/21/2006 at OR [facility] MUSCULOSKELETAL TRANSPLANT FND [id number] / [id number] / documented as of this encounter Procedures Procedure Name Priority Date/Time Associated Diagnosis Comments GLUCOSE METER, POINT OF CARE COCO 03/18/2024 11:03 AM EDT BASIC METABOLIC PANEL Routine 03/18/2024 5:57 AM EDT CBC Routine 03/18/2024 5:57 AM EDT EEG FRUIT II F[employer] MONITORING STAT 03/18/2024 ECHO, COMPLETE (2D), TRANS-THORACIC Routine 03/17/2024 9:10 AM EDT Syncope, unspecified syncope type BASIC METABOLIC PANEL Routine 03/17/2024 7:17 AM EDT CBC Routine 03/17/2024 7:17 AM EDT MRA HEAD WO CONTRAST STAT 03/17/2024 4:11 AM EDT MRA NECK WO CONTRAST STAT 03/17/2024 4:11 AM EDT TOXICOLOGY, URINESCREEN W/ CONFIRMATION Routine 03/17/2024 12:[address] C SPINE WO CONTRAST STAT 2:28 PM EDT Spondylosis without myelopathy or radiculopathy, cervical region Contusion of eyeball and orbital tissues, left eye, initial encounter CT HEAD/BRAIN WO CONTRAST STAT 03/16/2024 2:28 PM EDT Spondylosis without myelopathy or radiculopathy, cervical region Contusion of eyeball and orbital tissues, left eye, initial encounter XR CHEST 1 VIEW STAT 03/16/2024 1:56 PM EDT Syncope Syncope, unspecified syncope type GLUCOSE METER, POINT OF CARE COCO 03/16/2024 1:37 PM EDT EXTRA LIGHT BLUE TOP Routine 03/16/2024 1:34 PM EDT DIFFERENTIAL, AUTOMATED STAT 03/16/2024 1:34 PM EDT TROPONIN T, HIGH SENSITIVITY STAT 03/16/2024 1:34 PM EDT TSH WITH FREE T4 IF INDICATED Add-on 03/16/2024 1:34 PM EDT COMPREHENSIVE METABOLIC PANEL STAT 03/16/2024 1:34 PM EDT D-DIMER Add-on 03/16/2024 1:34 PM EDT CBC STAT 03/16/2024 1:34 PM EDT PHOSPHORUS Add-on 03/16/2024 1:34 PM EDT CBC STAT 03/16/2024 1:34 PM EDT MAGNESIUM Add-on 03/16/2024 1:34 PM EDT HC ECG TRACING ONLY STAT 03/16/2024 1 :27 PM EDT Syncope documented in this encounter Results * GLUCOSE METER, POINT OF CARE (03/18/2024 11:03 AM EDT) Glucose Meter 108 70 - 120 mg/dL 03/18/2024 11:06 AM EDT [facility] Blood Whole blood specimen / Unknown 03/18/2024 11:03 AM EDT 03/18/2024 11:06 AM EDT Rachel Wilson MD LAB POINT OF CARE TE ST DOCKED DEVICE UNSOLICITED RESULTS [facility] [address] [place] [address] * CBC (03/18/2024 5:57 AM EDT) WBC 10.65 4.00 - 10.80 K/uL 03/18/2024 6:34 AM EDT LAB[facility]ATORY [facility] RBC 4.30 3.85 - 5.15 M/uL 03/18/2024 6:34 AM EDT [facility] HGB 12.7 12.0 - 15.3 g/dL 03/18/2024 6:34 AM EDT [facility] HCT 39.8 36.0 - 45.2 % 03/18/2024 6:34 AM EDT [facility] MCV 92.6 81.5 - 97.5 fL 03/18/2024 6:34 AM EDT [facility] MCH 29.5 27.0 - 34.0 pg 03/18/2024 6:34 AM EDT [facility] MCHC 31.9 32.0 - 36.0 g/dL 03/18/2024 6:34 AM EDT [facility] RDW 12.5 11.5 - 15.5 % 03/18/2024 6:34 AM EDT [facility] PLT 220 140 - 400 K/uL 03/18/2024 6:34 AM EDT [facility] MPV 11.4 6.6 - 11.1 fL 03/18/2024 6:34 AM EDT [facility] nRBCs 0 <=0 /100 WBCs 03/18/2024 6:34 AM EDT [facility] Blood Venous blood specimen / Unknown Venipuncture / Unknown 03/18/2024 5:57 AM EDT 03/18/2024 6:21 AM EDT Deep Marley MD LAB BLOOD ORDERABLES [facility] [address] [place] [address] * BASIC METABOLIC PANEL (03/18/2024 5:57 AM EDT) BUN 18 6 - 20 mg/dL 03/18/2024 6:55 AM EDT [facility] Creatinine 0.8 0.5 - 1.0 mg/dL 03/18/2024 6:55 AM EDT [facility] Estimated Glomerular Filtration Rate 84 >=60 mL/min 03/18/2024 6:55 AM EDT [facility] Comment:eGFR is calculated b ased on the CKD-EPI 2020 equation Sodium 140 135 - 146 mmol/L 03/18/2024 6:55 AM EDT [facility] Potassium 3.9 3.5 - 5.1 mmol/L 03/18/2024 6:55 AM EDT [facility] Chloride 105 98 - 107 mmol/L 03/18/2024 6:55 AM EDT [facility] CO2 24 22 - 32 mmol/L 03/18/2024 6:55 AM EDT [facility] Anion Gap 11 7 - 15 mmol/L 03/18/2024 6:55 AM EDT [facility] Glucose 108 70 - 120 mg/dL 03/18/2024 6:55 AM EDT [facility] Calcium 8.6 8.4 - 10.2 mg/dL 03/18/2024 6:55 AM EDT LABORATORY [facility] Blood Venous blood specimen / Unknown Venipuncture / Unknown 03/18/2024 5:57 AM EDT 03/18/2024 6:21 AM EDT Deep Marley MD LAB BLOOD ORDERABLES LABORATORY [facility] [address] [place] [address] * EEG [facility] MONITORING (03/18/2024) Narrative Sadaf Reardon TECH - 03/18/2024 [facility] FRUIT II [employer]ARMWORK[employer] MONITORING-NEUROPHYSIOLOGY COMMENTS: NAME: Aaliyah Nick MACHINE: [facility] MEDS: HISTORY: Aaliyah Nick is a 59 year old female with PMHx mentioned above who presented with high syncopal episodes, cardiac workup is negative so far, MRA negative for vertebral insufficiency now concerning for dysautonomia DATE/TIME STARTED: 03/17 @ 1934 DATE/TIME ENDED: 03/18@1646 DAY: 1 DATE: 03/17-03/18 TIME: 5227-3825 PB/EVENTS: COMMENTS: Summary of Findings: Normal: This EEG is normal. There is no evidence of epileptiform activity or asymmetry. There were no clinical or electrographic seizures during this study. There were 2 psychogenic nonepileptic attacks (PNEA) during this recording REPORTING PHYS: m BILLING:hookup and 24 hrs on 03/17 and nc on 03/18 Aisha Pedersen MD MEDICINE * ECHO, COMPLETE (2D), TRANS-THORACIC (03/17/2024 9:10 AM EDT) LEFT VENTRICULAR EJECTION FRACTION 55 % [facility]ARDIOLOG[facility] 03/17/2024 8:44 AM EDT Deep Marley MD ECHOCARDIOLOGY Performing Organization Address City/[facility]/ZIP Co de Phone Number [facility] * CBC (03/17/2024 7:17 AM EDT) WBC 8.80 4.00 - 10.80 K/uL 03/17/2024 7:53 AM EDT [facility] RBC 4.22 3.85 - 5.15 M/uL 03/17/2024 7:53 AM EDT [facility] HGB 12.5 12.0 - 15.3 g/dL 03/17/2024 7:53 AM EDT [facility] HCT 39.2 36.0 - 45.2 % 03/17/2024 7:53 AM EDT [facility] MCV 92.9 81.5 - 97.5 fL 03/17/2024 7:53 AM EDT [facility] MCH 29.6 27.0 - 34.0 pg 03/17/2024 7:53 AM EDT [facility] MCHC 31.9 32.0 - 36.0 g/dL 03/17/2024 7:53 AM EDT [facility] RDW 12.5 11.5 - 15.5 % 03/17/2024 7:53 AM EDT [facility] PLT 214 140 - 400 K/uL 03/17/2024 7:53 AM EDT [facility] MPV 11.4 6.6 - 11.1 fL 03/17/2024 7:53 AM EDT LAB[facility] nRBCs 0 <=0 /100 WBCs 03/17/2024 7:53 AM EDT LABORATORY GM Blood Venous blood specimen / Unknown Venipuncture / Unknown 03/17/2024 7:17 AM EDT 03/17/2024 7:33 AM EDT Deep Marley MD LAB BLOOD ORDERABLES [facility] [address] [place] [address] * BASIC METABOLIC PANEL (03/17/2024 7:17 AM EDT) BUN 14 6 - 20 mg/dL 03/17/2024 7:57 AM EDT [facility] Creatinine 0.8 0.5 - 1.0 mg/dL 03/17/2024 7:57 AM EDT [facility] Estimated Glomerular Filtration Rate 83 >=60 mL/min 03/17/2024 7:57 AM EDT [facility] Comment:eGFR is calculated b ased on the CKD-EPI 2020 equation Sodium 142 135 - 146 mmol/L 03/17/2024 7:57 AM EDT [facility] Potassium 4.0 3.5 - 5.1 mmol/L 03/17/2024 7:57 AM EDT [facility] Chloride 104 98 - 107 mmol/L 03/17/2024 7:57 AM EDT [facility] CO2 29 22 - 32 mmol/L 03/17/2024 7:57 AM EDT [facility] Anion Gap 9 7 - 15 mmol/L 03/17/2024 7:57 AM EDT [facility] Glucose 93 70 - 120 mg/dL 03/17/2024 7:57 AM EDT LABORATORY C Calcium 8.8 8.4 - 10.2 mg/dL 03/17/2024 7:57 AM EDT LABORATORY [facility] Blood Venous blood specimen / Unknown Venipuncture / Unknown 03/17/2024 7:17 AM EDT 03/17/2024 7:33 AM EDT Deep Marley MD LAB BLOOD ORDERABLES LABORATORY [facility] [address] [place] [address] * MRA HEAD WO CONTRAST (03/17/2024 4:11 AM EDT) Anatomical Region Laterality Modality Head Magnetic Resonan ce 03/17/2024 7:19 AM EDT Impressions 03/17/2024 7:17 AM EDT IMPRESSION Atherosclerosis at the carotid bifurcations without significant stenosis by NASCET criteria. No significant intracranial stenosis or large vessel occlusion. Narrative 03/17/2024 7:17 AM EDT EXAM MRA NECK WITHOUT CONTRAST MRA HEAD WITHOUT CONTRAST HISTORY 59 y/o F syncope. TECHNIQUE MR angiography of the neck was performed without contrast using xvij-zu-flaeym technique. MR angiography of the head was performed without contrast using ixnw-kv-wdyrce technique. COMPARISON CT cervical spine and head dated 03/16/2024.. FINDINGS MRA HEAD: Evaluation is slightly limited due to motion artifact. There is no significant stenosis in the anterior or posterior circulation. MRA NECK: Evaluation is slightly limited due to motion and lack of intravenous contrast. The aortic arch is conventional in branching pattern. The great vessel origins are patent. There is no significant stenosis at the carotid bifurcations by NASCET criteria. The cervical segments of the internal carotid arteries are patent without significant stenosis. The vertebral arteries are grossly patent throughout the neck without significant stenosis. Procedure Note Claudia Borrego Isis, DO - 03/17/2024 EXAM MRA NECK WITHOUT CONTRAST MRA HEAD WITHOUT CONTRAST HISTORY 59 y/o F syncope. TECHNIQUE MR angiography of the neck was performed without contrast zvxnfurih-kc-vmqonn technique. MR angiography of the head was performed without contrast zlcoanjqu-ra-nmhasz technique. COMPARISON CT cervical spine and head dated 03/16/2024.. FINDINGS MRA HEAD: Evaluation is slightly limited due to motion artifact. There is no significant stenosis in the anterior or posteriorcirculation. MRA NECK: Evaluation is slightly limited due to motion and lack of intravenouscontrast. The aortic arch is conventional in branching pattern. Thegreat vessel origins are patent. There is no significant stenosis at the carotid bifurcations by NASCETcriteria. The cervical segments of the internal carotid arteries arepatent without significant stenosis. The vertebral arteries are grossly patent throughout the neck withoutsignificant stenosis. IMPRESSION IMPRESSION Atherosclerosis at the carotid bifurcations without significant stenosisby NASCET criteria. No significant intracranial stenosis or large vesselocclusion. Deep Marley MD RAD MRI-MRA * MRA NECK WO CONTRAST (03/17/2024 4:11 AM EDT) Anatomical Region Laterality Modality Neck Magnetic Resonan ce 03/17/2024 7:19 AM EDT Impressions 03/17/2024 7:17 AM EDT IMPRESSION Atherosclerosis at the carotid bifurcations without significant stenosis by NASCET criteria. No significant intracranial stenosis or large vessel occlusion. Narrative 03/17/2024 7:17 AM EDT EXAM MRA NECK WITHOUT CONTRAST MRA HEAD WITHOUT CONTRAST HISTORY 59 y/o F syncope. TECHNIQUE MR angiography of the neck was performed without contrast using xjpd-mw-dimicl technique. MR angiography of the head was performed without contrast using mngc-xo-sobevw technique. COMPARISON CT cervical spine and head dated 03/16/2024.. FINDINGS MRA HEAD: Evaluation is slightly limited due to motion artifact. There is no significant stenosis in the anterior or posterior circulation. MRA NECK: Evaluation is slightly limited due to motion and lack of intravenous contrast. The aortic arch is conventional in branching pattern. The great vessel origins are patent. There is no significant stenosis at the carotid bifurcations by NASCET criteria. The cervical segments of the internal carotid arteries are patent without significant stenosis. The vertebral arteries are grossly patent throughout the neck without significant stenosis. Procedure Note LyClaudia Isis, DO - 03/17/2024 EXAM MRA NECK WITHOUT CONTRAST MRA HEAD WITHOUT CONTRAST HISTORY 59 y/o F syncope. TECHNIQUE MR angiography of the neck was performed without contrast lnnlwccgx-wk-ifkbej technique. MR angiography of the head was performed without contrast omwizlrot-ho-inurjx technique. COMPARISON CT cervical spine and head dated 03/16/2024.. FINDINGS MRA HEAD: Evaluation is slightly limited due to motion artifact. There is no significant stenosis in the anterior or posteriorcirculation. MRA NECK: Evaluation is slightly limited due to motion and lack of intravenouscontrast. The aortic arch is conventional in branching pattern. Thegreat vessel origins are patent. There is no significant stenosis at the carotid bifurcations by NASCETcriteria. The cervical segments of the internal carotid arteries arepatent without significant stenosis. The vertebral arteries are grossly patent throughout the neck withoutsignificant stenosis. IMPRESSION IMPRESSION Atherosclerosis at the carotid bifurcations without significant stenosisby NASCET criteria. No significant intracranial stenosis or large vesselocclusion. Deep Marley MD RAD MRI-MRA * TOXICOLOGY, URINESCREEN W/ CONFIRMATION (03/17/2024 12:52 AM EDT) Pathologist [facility] Amphetamines Screen, U Negative Negative 03/17/2024 3:37 AM EDT LABORATORY [facility] Benzodiazepines Screen, U Negative Negative 03/17/2024 3:37 AM EDT LABORATORY C Cannabinoids Screen, U Negative Negative 03/17/2024 3:37 AM EDT LABORATORY [facility] Cocaine Metabolite Screen, U Negative Negative 03/17/2024 3:37 AM EDT LABORATORY [facility] Fentanyl Screen, U Negative Negative 2023 3:37 AM EDT LAB[facility] Hydrocodone Screen, U Negative Negative 03/17/2024 3:37 AM EDT LABORATORY [facility] Methadone Metabolite Screen, U Negative Negative 03/17/2024 3:37 AM EDT LABORATORY [facility] Morphine/Codeine Screen, U Negative Negative 03/17/2024 3:37 AM EDT LABORATORY [facility] Oxycodone Screen, U Negative Negative 03/17 3:37 AM EDT LABORATORY [facility] Urine Urine specimen / Unknown Non-blood Collection / Unknown 03/17/2024 12:52 AM EDT 03/17/2024 12:56 AM EDT Narrative LABORATORY [facility] - 03/17/2024 3:37 AM EDT Cutoff Concentrations: Drug Level Amphetamines 500 ng/mL Benzodiazepines 100 ng/mL Cannabinoids 50 ng/mL Cocaine Metabolite 150 ng/mL Fentanyl 1 ng/mL Hydrocodone / Hydromorphone 300 ng/mL Methadone Metabolite 100 ng/mL Morphine / Codeine 300 ng/mL Oxycodone / Oxymorphone 100 ng/mL Screening results are presumptive and can only be used for medical purposes. Positive screening results are reflexed to confirmatory testing. Arlene Paredes DO LAB URINE OR DERABLES LABORATORY [facility] [address] [place] [address] * CT C SPINE WO CONTRAST (03/16/2024 2:28 PM EDT) Anatomical Region Laterality Modality Cspine, Spine, Neck, Vertebra Co mputed Tomography 03/16/2024 2:41 PM EDT Impressions 03/16/2024 2:51 PM EDT IMPRESSION: No evidence of acute infarction or intracranial hemorrhage. Mild left periorbital soft tissue swelling. No acute calvarial or facial bone fracture. No evidence of acute fracture or traumatic malalignment of the cervical spine. Mild multilevel degenerative changes of the cervical spine as described. I have personally reviewed this examination and agree with the resident/fellow physician's interpretation. Narrative 03/16/2024 2:51 PM EDT EXAM: CT HEAD AND CERVICAL SPINE WITHOUT CONTRAST - 03/16/24 HISTORY: Recent syncopal episodes, left orbital ecchymosis TECHNIQUE: CT of the head and cervical spine was performed without intravenous contrast. Multiplanar reformats were generated. COMPARISON: MRI brain 05/02/2021 FINDINGS: CT HEAD: No evidence of acute infarction or intracranial hemorrhage. Mild patchy areas of low attenuation throughout the periventricular and subcortical white matter which are nonspecific but likely related to chronic microvascular disease. No hydrocephalus. No extra-axial fluid collections. Small mucous retention cyst along the floor of the right maxillary sinus and within a left posterior ethmoid air cell. The paranasal sinuses and mastoid air cells are otherwise grossly clear. Orbits are unremarkable. Mild left periorbital soft tissue swelling. No acute calvarial or facial bone fracture. CT CERVICAL SPINE: No evidence of acute cervical spine fracture or significant prevertebral soft tissue swelling. The cervical lordosis is maintained. No subluxations. Mild generalized osseous demineralization. Vertebral body heights are maintained. Mild degenerative disc height loss at C4-C5 and C5-C6 with annular calcifications. Mild spondylitic changes throughout the cervical spine with posterior disc osteophyte complexes, facet arthrosis, and ligamentous thickening, most pronounced at C5-C6. Diffusely enlarged, heterogeneous thyroid gland with multiple interspersed hypodense nodules which are better characterized on thyroid sonogram from 06/15/2023. The upper lungs are clear. Procedure Note Vicente Swift MD - 03/16/2024 EXAM: CT HEAD AND CERVICAL SPINE WITHOUT CONTRAST - 03/16/24 HISTORY: Recent syncopal episodes, left orbital ecchymosis TECHNIQUE: CT of the head and cervical spine was performed without intravenouscontrast. Multiplanar reformats were generated. COMPARISON: MRI brain 05/02/2021 FINDINGS: CT HEAD: No evidence of acute infarction or intracranial hemorrhage. Mild patchyareas of low attenuation throughout the periventricular and subcorticalwhite matter which are nonspecific but likely related to chronicmicrovascular disease. No hydrocephalus. No extra-axial fluidcollections. Small mucous retention cyst along the floor of the right maxillary sinusand within a left posterior ethmoid air cell. The paranasal sinuses andmastoid air cells are otherwise grossly clear. Orbits are unremarkable.Mild left periorbital soft tissue swelling. No acute calvarial or facialbone fracture. CT CERVICAL SPINE: No evidence of acute cervical spine fracture or significant prevertebralsoft tissue swelling. The cervical lordosis is maintained. No subluxations. Mild generalized osseous demineralization. Vertebral body heights aremaintained. Mild degenerative disc height loss at C4-C5 and C5-C6 withannular calcifications. Mild spondylitic changes throughout the cervicalspine with posterior disc osteophyte complexes, facet arthrosis, andligamentous thickening, most pronounced at C5-C6. Diffusely enlarged, heterogeneous thyroid gland with multiple interspersedhypodense nodules which are better characterized on thyroid sonogram from06/15/2023. The upper lungs are clear. IMPRESSION IMPRESSION: No evidence of acute infarction or intracranial hemorrhage. Mild left periorbital soft tissue swelling. No acute calvarial or facialbone fracture. No evidence of acute fracture or traumatic malalignment of the cervicalspine. Mild multilevel degenerative changes of the cervical spine asdescribed. I have personally reviewed this examination and agree with the resident/fellow physician's interpretation. Alyson Romero PA-C RAD CT * CT HEAD/BRAIN WO CONTRAST (03/16/2024 2:28 PM EDT) Anatomical Region Laterality Modality Head Computed Tomogra phy 03/16/2024 2:41 PM EDT Impressions 03/16/2024 2:51 PM EDT IMPRESSION: No evidence of acute infarction or intracranial hemorrhage. Mild left periorbital soft tissue swelling. No acute calvarial or facial bone fracture. No evidence of acute fracture or traumatic malalignment of the cervical spine. Mild multilevel degenerative changes of the cervical spine as described. I have personally reviewed this examination and agree with the resident/fellow physician's interpretation. Narrative 03/16/2024 2:51 PM EDT EXAM: CT HEAD AND CERVICAL SPINE WITHOUT CONTRAST - 03/16/24 HISTORY: Recent syncopal episodes, left orbital ecchymosis TECHNIQUE: CT of the head and cervical spine was performed without intravenous contrast. Multiplanar reformats were generated. COMPARISON: MRI brain 05/02/2021 FINDINGS: CT HEAD: No evidence of acute infarction or intracranial hemorrhage. Mild patchy areas of low attenuation throughout the periventricular and subcortical white matter which are nonspecific but likely related to chronic microvascular disease. No hydrocephalus. No extra-axial fluid collections. Small mucous retention cyst along the floor of the right maxillary sinus and within a left posterior ethmoid air cell. The paranasal sinuses and mastoid air cells are otherwise grossly clear. Orbits are unremarkable. Mild left periorbital soft tissue swelling. No acute calvarial or facial bone fracture. CT CERVICAL SPINE: No evidence of acute cervical spine fracture or significant prevertebral soft tissue swelling. The cervical lordosis is maintained. No subluxations. Mild generalized osseous demineralization. Vertebral body heights are maintained. Mild degenerative disc height loss at C4-C5 and C5-C6 with annular calcifications. Mild spondylitic changes throughout the cervical spine with posterior disc osteophyte complexes, facet arthrosis, and ligamentous thickening, most pronounced at C5-C6. Diffusely enlarged, heterogeneous thyroid gland with multiple interspersed hypodense nodules which are better characterized on thyroid sonogram from 06/15/2023. The upper lungs are clear. Procedure Note Vicente Swift MD - 03/16/2024 EXAM: CT HEAD AND CERVICAL SPINE WITHOUT CONTRAST - 03/16/24 HISTORY: Recent syncopal episodes, left orbital ecchymosis TECHNIQUE: CT of the head and cervical spine was performed without intravenouscontrast. Multiplanar reformats were generated. COMPARISON: MRI brain 05/02/2021 FINDINGS: CT HEAD: No evidence of acute infarction or intracranial hemorrhage. Mild patchyareas of low attenuation throughout the periventricular and subcorticalwhite matter which are nonspecific but likely related to chronicmicrovascular disease. No hydrocephalus. No extra-axial fluidcollections. Small mucous retention cyst along the floor of the right maxillary sinusand within a left posterior ethmoid air cell. The paranasal sinuses andmastoid air cells are otherwise grossly clear. Orbits are unremarkable.Mild left periorbital soft tissue swelling. No acute calvarial or facialbone fracture. CT CERVICAL SPINE: No evidence of acute cervical spine fracture or significant prevertebralsoft tissue swelling. The cervical lordosis is maintained. No subluxations. Mild generalized osseous demineralization. Vertebral body heights aremaintained. Mild degenerative disc height loss at C4-C5 and C5-C6 withannular calcifications. Mild spondylitic changes throughout the cervicalspine with posterior disc osteophyte complexes, facet arthrosis, andligamentous thickening, most pronounced at C5-C6. Diffusely enlarged, heterogeneous thyroid gland with multiple interspersedhypodense nodules which are better characterized on thyroid sonogram from06/15/2023. The upper lungs are clear. IMPRESSION IMPRESSION: No evidence of acute infarction or intracranial hemorrhage. Mild left periorbital soft tissue swelling. No acute calvarial or facialbone fracture. No evidence of acute fracture or traumatic malalignment of the cervicalspine. Mild multilevel degenerative changes of the cervical spine asdescribed. I have personally reviewed this examination and agree with the resident/fellow physician's interpretation. Alyson Romero PA-C RAD CT * XR CHEST 1 VIEW (03/16/2024 1:56 PM EDT) Anatomical Region Laterality Modality Chest Computed Radiogr aphy 03/16/2024 2:08 PM EDT Impressions 03/16/2024 2:06 PM EDT IMPRESSION: No acute findings in the chest. Narrative 03/16/2024 2:06 PM EDT EXAM: XR CHEST 1 VIEW - 03/16/2024 1:56 pm HISTORY: syncope TECHNIQUE: Single portable AP view of the chest COMPARISON: None FINDINGS: Catheters/tubes/devices/foreign bodies: Leadless electronic device overlies the left chest. No consolidation or effusion. No evidence of pneumothorax. Cardiomediastinal silhouette is within normal limits. Osseous structures are unremarkable. Procedure Note Chetan Diego, DO - 03/16/2024 EXAM: XR CHEST 1 VIEW - 03/16/2024 1:56 pm HISTORY: syncope TECHNIQUE: Single portable AP view of the chest COMPARISON: None FINDINGS: Catheters/tubes/devices/foreign bodies: Leadless electronic deviceoverlies the left chest. No consolidation or effusion. No evidence of pneumothorax. Cardiomediastinal silhouette is within normal limits. Osseous structures are unremarkable. IMPRESSION IMPRESSION: No acute findings in the chest. Alyson Romero PA-C RADIOLOGY (RAD GENE RAL) * GLUCOSE METER, POINT OF CARE (03/16/2024 1:37 PM EDT) Glucose Meter 102 70 - 120 mg/dL 03/16/2024 1:42 PM EDT [facility] Blood Whole blood specimen / Unknown 03/16/2024 1:37 PM EDT 03/16/2024 1:42 PM EDT No Physician Data Unknown LAB POINT OF C ARE TEST DOCKED DEVICE UNSOLICITED RESULTS Performing Organization Address City/[facility]/ZIP Co de Phone Number [facility] [address] [place] [address] * TSH WITH FREE T4 IF INDICATED (03/16/2024 1:34 PM EDT) Pathologist [facility] TSH 1.10 0.27 - 4.20 uIU/mL 03/16/2024 4:51 PM EDT LABORATORY [facility] Blood Venous blood specimen / Unknown Venipuncture / Unknown 03/16/2024 1:34 PM EDT 03/16/2024 1:44 PM EDT Deep Marely MD LAB BLOOD ORDERABLES Performing Organization Address City/[facility]/ZIP Co de Phone Number LABORATORY [facility] [address] [place] [address] * D-DIMER (03/16/2024 1:34 PM EDT) Pathologist [facility] D-Dimer 0.27 <0.50 ug/mL FEU 03/16/2024 3:12 PM EDT LABORATORY [facility] Blood Venous blood specimen / Unknown Venipuncture / Unknown 03/16/2024 1:34 PM EDT 03/16/2024 1:44 PM EDT Narrative LABORATORY [facility] - 03/16/2024 3:12 PM EDT Rheumatoid factor at a level above 50 IU/mL may lead to an overestimation of the D-dimer level. A normal D-dimer result (<0.50 ug/mL FEU) has a negative predictive value of approximately 95% for the exclusion of acute pulmonary embolism (PE) or deep vein thrombosis when there is low or moderate pretest PE probability. Increased D-dimer values are abnormal but do not indicate a specific disease state and the D-dimer increase does not definitively correlate with clinical severity of disease. Amy Pickens MD LAB BLOOD ORDERABLES [facility] [address] [place] [address] * PHOSPHORUS (03/16/2024 1:34 PM EDT) Phosphorus 4.2 2.5 - 4.8 mg/dL 03/16/2024 2:56 PM EDT [facility] Blood Venous blood specimen / Unknown Venipuncture / Unknown 03/16/2024 1:34 PM EDT 03/16/2024 1:44 PM EDT Amy Pickens MD LAB BLOOD ORDERABLES Performing Organization Address [facility] Co de Phone Number [facility] [address] [place] [address] * MAGNESIUM (03/16/2024 1:34 PM EDT) Magnesium 2.2 1.5 - 2.6 mg/dL 03/16/2024 2:56 PM EDT [facility] Blood Venous blood specimen / Unknown Venipuncture / Unknown 03/16/2024 1:34 PM EDT 03/16/2024 1:44 PM EDT Amy Pickens MD LAB BLOOD ORDERABLES Performing Organization Address City/[facility]/ZIP Co de Phone Number LABORATORY [facility] [address] [place] [address] * DIFFERENTIAL, AUTOMATED (03/16/2024 1:34 PM EDT) WBC 10.46 4.00 - 10.80 K/uL 03/16/2024 1:59 PM EDT [facility] Neutrophils % 65.9 40.0 - 75.0 % 03/16/2024 1:59 PM EDT [facility] Lymphocytes % 24.7 18.0 - 42.0 % 03/16/2024 1:59 PM EDT [facility] Monocytes % 8.4 1.0 - 11.0 % 03/16/2024 1:59 PM EDT [facility] Eosinophils % 0.3 0.0 - 6.0 % 03/16/2024 1:59 PM EDT [facility] Basophils % 0.2 0.0 - 2.0 % 03/16/2024 1:59 PM EDT [facility] Immature Granulocytes % 0.5 0.0 - 2.0 % 03/16/2024 1:59 PM EDT [facility] Absolute Neutrophils 6.90 1.80 - 7.70 K/uL 03/16/2024 1:59 PM EDT [facility] Absolute Lymphocytes 2.58 1.00 - 4.80 K/ul 03/16/2024 1:59 PM EDT [facility] Absolute Monocytes 0.88 0.00 - 1.10 K/uL 03/16/2024 1:59 PM EDT [facility] Absolute Eosinophils 0.03 0.00 - 0.70 K/uL 03/16/2024 1:59 PM EDT [facility] Absolute Basophils 0.02 0.00 - 0.20 K/uL 03/16/2024 1:59 PM EDT [facility] Absolute Immature Granulocytes 0.05 0.00 - 0.20 K/uL 03/16/2024 1:59 PM EDT [facility] Blood Venous blood specimen / Unknown Venipuncture / Unknown 03/16/2024 1:34 PM EDT 03/16/2024 1:44 PM EDT Alyson Romero PA-C LAB BLOOD ORDERABLE S [facility] [address] [place] [address] * CBC (03/16/2024 1:34 PM EDT) WBC 10.46 4.00 - 10.80 K/uL 03/16/2024 1:59 PM EDT [facility] RBC 4.51 3.85 - 5.15 M/uL 03/16/2024 1:59 PM EDT [facility] HGB 13.7 12.0 - 15.3 g/dL 03/16/2024 1:59 PM EDT [facility] HCT 42.5 36.0 - 45.2 % 03/16/2024 1:59 PM EDT [facility] MCV 94.2 81.5 - 97.5 fL 03/16/2024 1:59 PM EDT LABORATORY [facility] MCH 30.4 27.0 - 34.0 pg 03/16/2024 1:59 PM EDT LABORATORY [facility] MCHC 32.2 32.0 - 36.0 g/dL 03/16/2024 1:59 PM EDT LABORATORY [facility] RDW 12.6 11.5 - 15.5 % 03/16/2024 1:59 PM EDT LABORATORY [facility] PLT 240 140 - 400 K/uL 03/16/2024 1:59 PM EDT LABORATORY [facility] MPV 11.6 6.6 - 11.1 fL 03/16/2024 1:59 PM EDT LABORATORY [facility] nRBCs 0 <=0 /100 WBCs 03/16/2024 1:59 PM EDT LAB[facility]ATORY [facility] Blood Venous blood specimen / Unknown Venipuncture / Unknown 03/16/2024 1:34 PM EDT 03/16/2024 1:44 PM EDT Trello PA-C LAB BLOOD ORDERABLE S Performing Organization Address City/[facility]/ZIP Co de Phone Number LABORATORY [facility] [address] [place] [address] * EXTRA LIGHT BLUE TOP (03/16/2024 1:34 PM EDT) Blood Venous blood specimen / Unknown Venipuncture / Unknown 03/16/2024 1:34 PM EDT 03/16/2024 1:44 PM EDT Trello PA-C LAB BLOOD ORDERABLE S LABORATORY [facility] [address] [place] [address] * TROPONIN T, HIGH SENSITIVITY (03/16/2024 1:34 PM EDT) Pathologist [facility] Troponin T, High Sensitivity <6 <=14 ng/L 03/16/2024 2:09 PM EDT LABORATORY [facility] Blood Venous blood specimen / Unknown Venipuncture / Unknown 03/16/2024 1:34 PM EDT 03/16/2024 1:44 PM EDT Alyson Romero PA-C LAB BLOOD ORDERABLE S LABORATORY [facility] [address] [place], [place] [id number] * COMPREHENSIVE METABOLIC PANEL (03/16/2024 1:34 PM EDT) BUN 15 6 - 20 mg/dL 03/16/2024 2:09 PM EDT LABORATORY [facility] Creatinine 0.8 0.5 - 1.0 mg/dL 03/16/2024 2:09 PM EDT LABORATORY [facility] Estimated Glomerular Filtration Rate 84 >=60 mL/min 03/16/2024 2:09 PM EDT LABORATORY [facility] Comment:eGFR is calculated b ased on the CKD-EPI 2020 equation Sodium 140 135 - 146 mmol/L 03/16/2024 2:09 PM EDT LABORATORY C Potassium 4.0 3.5 - 5.1 mmol/L 03/16/2024 2:09 PM EDT LABORATORY C Chloride 102 98 - 107 mmol/L 03/16/2024 2:09 PM EDT LABORATORY C CO2 28 22 - 32 mmol/L 03/16/2024 2:09 PM EDT LABORATORY C Anion Gap 10 7 - 15 mmol/L 03/16/2024 2:09 PM EDT LABORATORY C Glucose 100 70 - 120 mg/dL 03/16/2024 2:09 PM EDT [facility] Albumin 3.8 3.8 - 5.0 g/dL 03/16/2024 2:09 PM EDT [facility] AST 14 10 - 35 U/L 03/16/2024 2:09 PM EDT [facility] Alkaline Phosphatase 85 35 - 130 U/L 03/16/2024 2:09 PM EDT [facility] Bilirubin, Total 0.2 <=1.2 mg/dL 03/16/2024 2:09 PM EDT [facility] Calcium 9.1 8.4 - 10.2 mg/dL 03/16/2024 2:09 PM EDT [facility] Protein 6.8 6.0 - 8.3 g/dL 03/16/2024 2:09 PM EDT LABORATORY [facility] ALT 15 10 - 35 U/L 03/16/2024 2:09 PM EDT LABORATORY [facility] Blood Venous blood specimen / Unknown Venipuncture / Unknown 03/16/2024 1:34 PM EDT 03/16/2024 1:44 PM EDT Alyson Romero PA-C LAB BLOOD ORDERABLE S Performing Organization Address [facility] Co de Phone Number LABORATORY [facility] [address] [place] [address] * EKG (03/16/2024 1:27 PM EDT) 03/16/2024 1:27 PM EDT Narrative Procedure Note Britton Abrams, - 03/16/2024 1:27 PM EDT REASON FOR STUDY: syncope CONCLUSIONS: Normal sinus rhythm High QRS voltage may be normal variant or due to lve ( R in aVL ) Nonspecific T wave abnormality When compared with ECG of 01-Feb-2016 13:07, No significant change was found Ventricular Rate: 97 Atrial Rate: 97 IL Interval: 124 QRS Duration: 86 QT/QTc: 360/457 ms P-R-T [place]: 38 : 9 : 25 degrees Alyson Romero PA-C EKG Performing Organization Address [facility] Co de Phone Number [facility] documented in this encounter Visit Diagnoses Diagnosis Syncope and collapse- Primary Syncope Syncope and collapse Chest pain Chest pain, unspecified Syncope, unspecified syncope type Spondylosis without myelopathy or radiculopathy, cervical region Contusion of eyeball and orbital tissues, left eye, initial encounter Syncope and collapse Stroke-like episode Unspecified cerebral artery occlusion with cerebral infarction Migraine with aura and without status migrainosus, not intractable Migraine with aura, without mention of intractable migraine without mention of status migrainosus Gastroesophageal reflux Esophageal reflux Sleep disturbance Sleep disturbance, unspecified Orthostatic hypotension documented in this encounter Administered Medications Inactive Administered Medications - up to 3 most recent administrations Medication Order MAR Action Action Date Dose Rate Site Acetaminophen (Tylenol) tab 975 mg 975 mg, Oral, ONCE, On Thu03/18/24 at 0315, For 1 dose, Maximum of 4 grams (4000 mg) per day. Given 03/18/2024 2:45 AM EDT 975 mg Acetaminophen (Tylenol) tab 975 mg 975 mg, Oral, ONCE, On Thu03/18/24 at 1530, For 1 dose, Maximum of 4 grams (4000 mg) per day. Given 03/18/2024 3:10 PM EDT 975 mg aspirin enteric coated tab 81 mg 81 mg, Oral, Daily(AM), First dose on Thu03/17/24 at 0900, Until Discontinued Given 03/18/2024 7:18 AM EDT 81 mg Given 03/17/2024 8:00 AM EDT 81 mg atorvaSTATin (Lipitor) tab 20 mg 20 mg, Oral, Daily(AM), First dose on Thu03/17/24 at 0900, Until Discontinued Given 03/18/2024 7:18 AM EDT 20 mg Given 03/17/2024 8:00 AM EDT 20 mg Baclofen (Lioresal) tab 20 mg 20 mg, Oral, TID PRN Headache, Muscle spasms, Starting on Thu03/16/24 at 1806, Until Thu03/18/24 at 2153 Given 03/17/2024 9:40 PM EDT 20 mg isolyte 1,000 mL bolus infusion Intravenous, Administer entire volume within 60 minutes or less. Plasma-LYTE 148, isolyte-S, and isolyte-S pH 7.4 are considered equivalent - including for MAR barcode scanning., ONCE, 1 dose, On Thu03/17/24 at 1045 New Bag 03/17/2024 10:34 AM EDT 1,000 mL 1000 mL/hr isolyte 1,000 mL bolus infusion Intravenous, Administer entire volume within 60 minutes or less. Plasma-LYTE 148, isolyte-S, and isolyte-S pH 7.4 are considered equivalent - including for MAR barcode scanning., ONCE, 1 dose, On Thu03/18/24 at 1100 New Bag 03/18/2024 11:24 AM EDT 1,000 mL 1000 mL/hr pantoprazole (Protonix) tab 40 mg 40 mg, Oral, Daily(AM), First dose on Thu03/17/24 at 0900, Until Discontinued, This med should NOT be Crushed or Chewed Given 03/18/2024 7:18 AM EDT 40 mg Given 03/17/2024 8:00 AM EDT 40 mg Pregabalin (Lyrica) cap 225 mg 225 mg, Oral, BID (.AM/PM), First dose on Thu03/16/24 at 2100, Until Discontinued Given 03/18/2024 7:18 AM EDT 225 mg Given 03/17/2024 8:32 PM EDT 225 mg Given 03/17/2024 8:00 AM EDT 225 mg sodium chloride 0.9 % flush/inj 3 mL 3 mL, IV Push, PRN Other, Line Patency, Starting on Thu03/16/24 at 1546, Until Thu03/18/24 at 2153, Do not flush if lock, PICC, or central line not in place, IV infusing or unable to flush traZODone (Desyrel) tab 50 mg 50 mg, Oral, QHS PRN Insomnia, Sleep, Starting on Thu03/16/24 at 2200, Until Thu03/18/24 at 2153 venlafaxine XR (Effexor XR) cap 150 mg 150 mg, Oral, Daily(AM), First dose on Thu03/17/24 at 0900, Until Discontinued, This med should NOT be Crushed or Chewed but may be opened and contents administered in a spoonful of applesauce or pudding without chewing or crushing. Given 03/18/2024 7:18 AM EDT 150 mg Given 03/17/2024 8:00 AM EDT 150 mg Vitamin B-2 (Riboflavin) tab 400 mg 400 mg, Oral, Daily(AM), First dose on Thu03/17/24 at 0900, Until Discontinued Given 03/18/2024 7:18 AM EDT 400 mg Given 03/17/2024 8:00 AM EDT 400 mg documented in this encounter Active and Recently Administered Medications Times are shown in EDT. Scheduled Medication Order 03/16/2024 03/17/2024 03/18/2024 Acetaminophen (Tylenol) tab 975 mg (COMPLETED) 975 mg, Oral, ONCE, On Thu03/18/24 at 0315, For 1 dose, Maximum of 4 grams (4000 mg) per day. 0245 (Given - Provider: Tanna Paulino, GABRIELA) Acetaminophen (Tylenol) tab 975 mg (COMPLETED) 975 mg, Oral, ONCE, On Thu03/18/24 at 1530, For 1 dose, Maximum of 4 grams (4000 mg) per day. 1510 (Given - Provider: David Zelaya, GABRIELA) aspirin enteric coated tab 81 mg 81 mg, Oral, Daily(AM), First dose on Thu03/17/24 at 0900, Until Discontinued 0800 (Given - Provider: Gia Bosch RN) 0718 (Given - Provider: Caitlin Hightower, GABRIELA) atorvaSTATin (Lipitor) tab 20 mg 20 mg, Oral, Daily(AM), First dose on Thu03/17/24 at 0900, Until Discontinued 0800 (Given - Provider: Gia Bosch RN) 07 (Given - Provider: Caitlin Hightower, GABRIELA) isolyte 1,000 mL bolus infusion (COMPLETED) Intravenous, Administer entire volume within 60 minutes or less. Plasma-LYTE 148, isolyte-S, and isolyte-S pH 7.4 are considered equivalent - including for MAR barcode scanning., ONCE, 1 dose, On Thu03/17/24 at 1045 1034 (New Bag - Provider: Melodie Brantley RN)1136 (Stopped - Provider: Melodie Brantley RN) isolyte 1,000 mL bolus infusion (COMPLETED) Intravenous, Administer entire volume within 60 minutes or less. Plasma-LYTE 148, isolyte-S, and isolyte-S pH 7.4 are considered equivalent - including for MAR barcode scanning., ONCE, 1 dose, On Thu03/18/24 at 1100 1124 (New Bag - Provider: David Zelaya, GABRIELA) pantoprazole (Protonix) tab 40 mg 40 mg, Oral, Daily(AM), First dose on Thu03/17/24 at 0900, Until Discontinued, This med should NOT be Crushed or Chewed 0800 (Given - Provider: Gia Bosch RN) 07 (Given - Provider: Caitlin Hightower, GABRIELA) Pregabalin (Lyrica) cap 225 mg 225 mg, Oral, BID (.AM/PM), First dose on Thu03/16/24 at 2100, Until Discontinued 2035 (Given - Provider: Betsy Becker, GABRIELA) 0800 (Given - Provider: Gia Bosch RN)2031 (Given - Provider: Tanna Paulino, GABRIELA) 717 (Given - Provider: Caitlin Hightower, GABRIELA) venlafaxine XR (Effexor XR) cap 150 mg 150 mg, Oral, Daily(AM), First dose on Thu03/17/24 at 0900, Until Discontinued, This med should NOT be Crushed or Chewed but may be opened and contents administered in a spoonful of applesauce or pudding without chewing or crushing. 08 (Given - Provider: Gia Bosch RN) 717 (Given - Provider: Caitlin Hightower, GABRIELA) Vitamin B-2 (Riboflavin) tab 400 mg 400 mg, Oral, Daily(AM), First dose on Thu03/17/24 at 0900, Until Discontinued 799 (Given - Provider: Gia Bosch RN) 717 (Given - Provider: Caitlin Hightower, GABRIELA) PRN Medication Order 03/16/2024 03/17/2024 03/18/2024 Baclofen (Lioresal) tab 20 mg 20 mg, Oral, TID PRN Headache, Muscle spasms, Starting on Thu03/16/24 at 1806, Until Thu03/18/24 at 2153 2140 (Given - Provider: Jeremiah Paulino, GABRIELA) sodium chloride 0.9 % flush/inj 3 mL 3 mL, IV Push, PRN Other, Line Patency, Starting on Thu03/16/24 at 1546, Until Thu03/18/24 at 2153, Do not flush if lock, PICC, or central line not in place, IV infusing or unable to flush traZODone (Desyrel) tab 50 mg 50 mg, Oral, QHS PRN Insomnia, Sleep, Starting on Thu03/16/24 at 2200, Until Thu03/18/24 at 2153 documented in this encounter Advance Directives * Full Code (Latest Code Status on File) Date Activated Date Inactivated Comments 03/16/2024 3:47 PM 03/18/2024 9:58 PM This order r eflects the patients wishes and were consensually agreed upon. Question Answer Comments Discussion of Advance Directives occurred with: Patient Care Teams Neon Sign Mechanic Relationship Specialty Start Date End Date Ema Ward MD [address] [place] [address] PCP - General Family Medicine 02/04/22 documented as of this encounter
--- OUTSIDE RECORDS SUMMARY | 2024-04-02 04:48 | External Medical Summary ---
Author Name Unknown Address Unknown Organization [id number]:LABORATORY [facility] - [address] [place] [address] Laboratory Report Ordering Provider Test Date Status TERESA BROOKSGENTRY 03/18/2024 05:57:00 Final Observation Date Value Abnormality Reference (Units ) Status BUN 03/18/2024 05:57:00 18 6-20 (mg/dL) Final Creatinine 03/18/2024 05:57:00 0.8 0.5-1.0 (mg/dL) Final Glomerular filtration rate/1.73 sq M.predicted [Volume Rate/Area] in Serum, Plasma or Blood by Creatinine-based formula (CKD-EPI) 03/18/2024 05:57:00 84 >=60 (mL/min) Final eGFR is calculated based on the CKD-EPI 2020 equation Sodium 03/18/2024 05:57:00 140 135-146 (m mol/L) Final Potassium 03/18/2024 05:57:00 3.9 3.5-5.1 (m mol/L) Final Cl 03/18/2024 05:57:00 105 98-107 (mm ol/L) Final CO2 03/18/2024 05:57:00 24 22-32 (mmo l/L) Final Anion gap 03/18/2024 05:57:00 11 7-15 (mmol /L) Final Glucose 03/18/2024 05:57:00 108 70-120 (mg /dL) Final Calcium 03/18/2024 05:57:00 8.6 8.4-10.2 ( mg/dL) Final Performing Location LABORATORY [facility] [place] - [address] [place] [address]
--- OUTSIDE RECORDS SUMMARY | 2024-04-02 04:49 | External Medical Summary ---
Author Name Unknown Address Unknown Organization [id number]:LABORATORY [facility] [place] - [address] [place] [address] [place] [address] Laboratory Report Ordering Provider Test Date Status STEPHANIE PEDRAZA 03/16/2024 13:34:00 Final Observation Date Value Abnormality Reference (Units ) Status WBC, Total 03/16/2024 13:34:00 10.46 4.00-10.80 (K/uL) Final RBC 03/16/2024 13:34:00 4.51 3.85-5.15 (M/uL) Final Hemoglobin 03/16/2024 13:34:00 13.7 12.0-15.3 (g/dL) Final HCT 03/16/2024 13:34:00 42.5 36.0-45.2 (%) Final MCV 03/16/2024 13:34:00 94.2 81.5-97.5 (fL) Final MCH 03/16/2024 13:34:00 30.4 27.0-34.0 (pg) Final MCHC 03/16/2024 13:34:00 32.2 32.0-36.0 (g/dL) Final RDW 03/16/2024 13:34:00 12.6 11.5-15.5 (%) Final Platelets 03/16/2024 13:34:00 240 140-400 (K/uL) Final MPV 03/16/2024 13:34:00 11.6 6.6-11.1 (fL) Final Nucleated erythrocytes/100 leukocytes [Ratio] in Blood by Automated count 03/16/2024 13:34:00 0 <=0 (/100 WBCs) Final Performing Location [facility] - [address] [place] [address]
--- OUTSIDE RECORDS SUMMARY | 2024-04-02 04:49 | External Medical Summary ---
Author Name Unknown Address Unknown Organization K01:LABORATORY [address] [address] Laboratory Report Ordering Provider Test Date Status KANE MALDONADO 03/17/2024 00:52:20 Final Cutoff Concentrations:
Drug Level
Amphetamines 500 ng/mL
Benzodiazepines 100 ng/mL
Cannabinoids 50 ng/mL
Cocaine Metabolite 150 ng/mL
Fentanyl 1 ng/mL
Hydrocodone / Hydromorphone 300 ng/mL
Methadone Metabolite 100 ng/mL
Morphine / Codeine 300 ng/mL
Oxycodone / Oxymorphone 100 ng/mL

Screening results are presumptive and can only be used for medical purposes. Positive screening results are reflexed to confirmatory testing. Observation Date Value Abnormality Reference (Units ) Status Amphetamines, Urine screen 03/17/2024 00:52:20 Negative Negative Final Benzodiazepines, Urine screen 03/17/2024 00:52:20 Negative Negative Final Cannabinoids, Urine screen 03/17/2024 00:52:20 Negative Negative Final Cocaine Metabolite, Urine screen 03/17/2024 00:52:20 Negative Negative Final fentaNYL [Presence] in Urine by Screen method 03/17/2024 00:52:20 Negative Negative Final HYDROcodone [Presence] in Urine by Screen method 03/17/2024 00:52:20 Negative Negative Final 0-Puzgdrdffn-0,5-Dimeth yl-3,3-Diphenylpyrrolid ine (EDDP) [Presence] in Urine 03/17/2024 00:52:20 Negative Negative Final Opiates, Urine screen 03/17/2024 00:52:20 Negative Negative Final oxyCODONE [Presence] in Urine by Screen method 03/17/2024 00:52:20 Negative Negative Final Performing Location [facility] [place] [address] [facility] [place] [address]
--- OUTSIDE RECORDS SUMMARY | 2024-04-02 04:49 | External Medical Summary ---
Author Name Unknown Address Unknown Organization K01:[facility] - [address] [place] [address] [place] [address] Laboratory Report Ordering Provider Test Date Status SOLIS MENDOZA 03/16/2024 13:34:00 Final Observation Date Value Abnormality Reference (Units ) Status Magnesium 03/16/2024 13:34:00 2.2 1.5-2.6 (m g/dL) Final Performing Location [facility] [address] [facility] [address]
--- OUTSIDE RECORDS SUMMARY | 2024-04-02 04:49 | External Medical Summary ---
Author Name Unknown Address Unknown Organization [id number]:[place] [facility] [place] [address] [facility] [place] [address] Laboratory Report Ordering Provider Test Date Status STEPHANIE PEDRAZA 03/16/2024 13:34:00 Final Observation Date Value Abnormality Reference (Units ) Status BUN 03/16/2024 13:34:00 15 6-20 (mg/dL) Final Creatinine 03/16/2024 13:34:00 0.8 0.5-1.0 (mg/dL) Final Glomerular filtration rate/1.73 sq M.predicted [Volume Rate/Area] in Serum, Plasma or Blood by Creatinine-based formula (CKD-EPI) 03/16/2024 13:34:00 84 >=60 (mL/min) Final eGFR is calculated based on the CKD-EPI 2020 equation Sodium 03/16/2024 13:34:00 140 135-146 (m mol/L) Final Potassium 03/16/2024 13:34:00 4.0 3.5-5.1 (m mol/L) Final Cl 03/16/2024 13:34:00 102 98-107 (mm ol/L) Final CO2 03/16/2024 13:34:00 28 22-32 (mmo l/L) Final Anion gap 03/16/2024 13:34:00 10 7-15 (mmol /L) Final Glucose 03/16/2024 13:34:00 100 70-120 (mg /dL) Final Albumin 03/16/2024 13:34:00 3.8 3.8-5.0 (g /dL) Final AST (Aspartate aminotransferase) 03/16/2024 13:34:00 14 10-35 (U/L) Final Alk Phos 03/16/2024 13:34:00 85 35-130 (U/ L) Final Bilirubin, Total 03/16/2024 13:34:00 0.2 <=1 .2 (mg/dL) Final Calcium 03/16/2024 13:34:00 9.1 8.4-10.2 ( mg/dL) Final Protein 03/16/2024 13:34:00 6.8 6.0-8.3 (g /dL) Final ALT (Alanine aminotransferase) 03/16/2024 13:34:00 15 10-35 (U/L) Final Performing Location [place] [facility] [place] [facility] [address] [facility] [address]
--- OUTSIDE RECORDS SUMMARY | 2024-04-02 04:49 | External Medical Summary ---
Author Name Unknown Address Unknown Organization : Laboratory Report Ordering Provider Test Date Status NO,UNKNOWN 03/16/2024 13:37:29 Final Observation Date Value Abnormality Reference (Units ) Status Glucose Point of Care 03/16/2024 13:37:29 102 70-120 (mg/dL) Final Performing Location
--- OUTSIDE RECORDS SUMMARY | 2024-04-02 04:49 | External Medical Summary ---
Author Name Unknown Address Unknown Organization [id number]:[place] [facility] [place] [address] [place] [address] Laboratory Report Ordering Provider Test Date Status RUT BROOKS 03/16/2024 13:34:00 Final Observation Date Value Abnormality Reference (Units ) Status TSH 03/16/2024 13:34:00 1.10 0.27-4.20 (uIU/mL) Final Performing Location [facility] - [address] [place] [address]
--- OUTSIDE RECORDS SUMMARY | 2024-04-02 04:49 | External Medical Summary ---
Author Name Unknown Address Unknown Organization [id number]:LABORATORY [facility] [place] - [address] [place] [address] Laboratory Report Ordering Provider Test Date Status STEPHANIE PEDRAZA 03/16/2024 13:34:00 Final Observation Date Value Abnormality Reference (Units ) Status Troponin T 03/16/2024 13:34:00 <6 <=14 (ng/ L) Final Performing Location LAB[facility] - [address] [place] [address]
--- OUTSIDE RECORDS SUMMARY | 2024-04-02 04:49 | External Medical Summary | Summary of Care ---
Author Name Unknown Organization [facility] Address [address] [place] [address] Phone [phone] Care Team Providers Care Systems Integration Analyst Name Role Phone Ema Ward MD Primary Care Provid er Reason for Referral * Precert (Within 10 days (routine)) - Pending Review Specialty Diagnoses / Procedures Referred By Contac t Referred To Contact Cardiac Studies Diagnoses Syncope and collapse Procedures ECHO, COMPLETE (2D), TRANS-THORACIC Baldev Cary MD [address] [place] [address] Referral ID Status Reason Start Date Expiration Date Visits Requested Visits Authorized [id number] Pending Review Precert 03/14/2024 999 999 Reason for Visit * Reason Comments Emergency Department Follow-Up Continued symptoms of feeling lightheadedness, blurred vision in left eye, smells gasoline Encounter Details Date Type Department Care Team (Late st Contact Info) Description 03/14/2024 2:40 PM EDT Office Visit [facility] [address] [place] [id number] Baldev Cary MD [address], [place] [id number] Syncope and collapse*; Primary insomnia; Dysphagia, unspecified type; De León's esophagus without dysplasia; Gastroesophageal reflux disease without esophagitis; Stroke-like episode Allergies Active Allergy Reactions Criticality Noted Date Comments Codeine 10/02/2021 Lamotrigine 12/07/2020 rash Milnacipran Hcl Rash Medium 08/06/2011 Savella Morphine 10/02/2021 documented as of this encounter (statuses as of 03/14/2024) Medications Medication Sig Dispensed Refills Start Date End Date Status XIAO-C 500 MG PO TABS daily. Active COLACE 100 MG PO CAPSIndications:Uns pecified constipation,Menopa use Take by mouth at bedtime. DAILY 60 Cap 5 01/24/2013 Active Fluticasone Propionate 50 MCG/ACT Nasal SuspensionIndicatio ns:Acute non-recurrent maxillary sinusitis Administer 2 Sprays into each nostril daily. 9.9 mL 3 08/25/2020 Active Additional Information Patient not taking.Reported on 03/14/2024 Simethicone 125 MG Oral Capsule Take by mouth. Active Womens Multi Gummies Oral Tablet Chewable Take by mouth daily at noon. Active Triamcinolone Acetonide 0.1 % Mouth/Throat Paste (Kenalog In Orabase)Indications :Aphthous ulcer Apply to inside of cheek 3 times a day . To affected area. 5 g 1 07/22/2022 Active Famotidine 20 MG Oral Tablet (Pepcid) Take 1 Tablet by mouth at bedtime. 30 Tablet 2 12/18/2022 Active Additional Information Patient taking differently:20 mg Oral HS,Not started, Reported on 12/18/2022 Baclofen 20 MG Oral TabletIndications:C ervicalgia TAKE 1 TABLET BY MOUTH AT BEDTIME AND 1/2 TABLET UP TO TWO TIMES A DAY NEEDED FOR NECK AND HEAD PAIN 120 Tablet 11 02/23/2023 Active Aspirin 81 MG Oral Tablet Delayed Release [...] OR CHEW. 90 Tablet 2 06/23/2023 Active Triamcinolone Acetonide 0.1 % External Cream (Aristocort)Indicat ions:Bee sting reaction, accidental or unintentional, initial encounter APPLY TOPICAL TO AFFECTED AREA 2 TIMES A DAY 60 g 08/20/2023 Active Riboflavin 400 MG Oral Tablet 1 Tablet. 07/22/2023 Active Pregabalin 225 MG Oral Capsule [...] every afternoon 90 Capsule 3 2024 Active traZODone HCl 50 MG Oral Tablet (Desyrel)Indication s:Primary insomnia Take 1 Tablet by mouth at bedtime. 30 Tablet 5 03/14/2024 Active Amoxicillin 875 MG Oral TabletIndications:A cute non-recurrent maxillary sinusitis Take 1 Tablet by mouth in the morning and 1 Tablet before bedtime. Do all this for 7 days. 14 Tablet 01/08/2024 03/14/20 24 Discontinu ed(Medicat ion List Clean Up) predniSONE 20 MG Oral Tablet (Deltasone)Indicati ons:Fibromyalgia Take 2 Tablets by mouth in the morning for 5 days. 10 Tablet 03/07/2024 03/14/20 24 Discontinu ed(Medicat ion List Clean Up) documented as of this encounter (statuses as of 03/14/2024) Active Problems Problem Noted Date Diagnosed Date Stroke-like episode 04/27/2023 Cervicalgia 08/19/2021 H/O dysplastic [...] as of this encounter (statuses as of 03/14/2024) Resolved Problems Problem Noted Date Diagnosed Date [...] Myalgia and myositis 06/25/2006 016 DISC DIS [id number] 05/28/200611/2010 BACKACHE NOS 05/28/2006 08/06/2016 LUMB-LUMBOSAC DISC DEGEN 02/08/200411/2010 HTN, goal below 140/90 08/06 documented as of this encounter (statuses as of 03/14/2024) Immunizations Name Administration Dates Next Due Seasonal [...] Sign Reading Time Taken Comments Blood Pressure 120/84 03/14/2024 2:39 PM EDT Pulse 84 03/14/2024 2:39 PM EDT Temperature 36.7 C (98.1 F) 03/14/2024 2:39 PM ED T Respiratory Rate 16 03/14/2024 2:39 PM EDT Oxygen Saturation - - Inhaled Oxygen Concentration - - Weight 89.8 kg (198 lb) 03/14/2024 2:39 PM EDT Height 170.2 cm (5' 7") 03/14/2024 2:39 PM EDT Body Mass Index 31.01 03/14/2024 2:39 PM EDT documented in this encounter Progress Notes * Baldev Cary MD - 03/14/2024 3:08 PM EDT Images from the original note were not included. Assessment and Plan 1. Syncope and collapse Rule out cardiac cause. Reassuring EKG in the ED. Negative head imaging. Zio to be placed in officetoday. Echocardiogram to rule out structural abnormalities. Blood pressure is at goal today. - EXTERNAL EKG 8 TO 15 DAYS; Future - ECHO, COMPLETE (2D), TRANS-THORACIC; Future 2. Primary insomnia Insomnia. Start trazodone 50 mg nightly. Lack of sleep may be contributing to both headaches and falls. - traZODone HCl 50 MG Oral Tablet (Desyrel); Take 1 Tablet by mouth at bedtime. Dispense: 30 Tablet; Refill: 5 3. Dysphagia, unspecified type Dysphagia with history of De León's esophagus. Last EGD in 2022. Currently taking pantoprazole 40 mg daily along with Pepcid 20 mg nightly. I will send a message over to GI to see if they recommend med change versus repeat scope given dysphagia to solid foods which is new. 4. De León's esophagus without dysplasia 5. Gastroesophageal reflux disease without esophagitis 6. Stroke-like episode History of complex migraines. Migraine from this morning is resolving with only mild tingling of the right lower extremity. She otherwise feels well and has largely unremarkable neurologic exam. Wrap-Up Follow up as needed. History of Present Illness The patient is a 59-year-old female with past medical history of complex migraines, fibromyalgia, GERD, hyperlipidemia who presents for ED follow up. Patient was seen at [facility] ED on 03/12/2024. Patient presented due to a fall. She ended up striking the left side of her forehead on a table andher right arm on the floor. CT scan of the brain and facial bones were negative for acute injury. X-ray of the right wrist, forearm, elbow or negative. Patient received IV fluids and Zofran for nausea. She was discharged home. Today patient reports she is having 1 of her complex migraines. These result in neurologic deficitsand she was presented to the ED multiple times previously with negative imaging. Symptoms are largely resolved other than some numbness and tingling in the right leg. She does continue to have mildlyblurred vision of the left eye that has been present since her fall with left-sided face/head trauma. She denies palpitations. No chest pain. She does endorse dysphagia to solid foods. She has a history of De León's esophagus following with Gastroenterology. She currently takes pantoprazole 40 mg daily and has been using Pepcid as well. Despite this she has had a feeling of dysphagia to solid foods over the last few weeks. Patient also with insomnia. Difficulty staying asleep. Physical Exam Vitals: 03/14/24 1439 Temp: 36.7 C (98.1 F) Pulse: 84 Resp: 16 BP: 120/84 BMI: 31 Physical Exam Physical Exam Vitals reviewed. Constitutional: General: She is not in acute distress. Cardiovascular: Rate and Rhythm: Normal rate and regular rhythm. Heart sounds: No murmur heard. Pulmonary: Effort: Pulmonary effort is normal. No respiratory distress. Breath sounds: Normal breath sounds. Skin: Comments: Ecchymosis of the left forehead and left cheek. Neurological: Mental Status: She is alert. Comments: Very mildly diminished strength with hip flexion on the right. Otherwise unremarkable neurologic exam. Psychiatric: Comments: Flat affect. This note has been completed in part utilizing Giggle Speech Voice Recognition Software. Due to technical limitations of the software, grammatical errors, random word insertions, prounoun errors, and incomplete sentences may occur. Any formal questions or concerns about the content, text, or information contained within the body of this dictation should be directly addressed to the provider for clarification. documented in this encounter Nursing Notes * Inessa Gloria LPN - 03/14/2024 2:43 PM EDT The patient has been properly identified by confirmation of name and date of . Chief Complaint Patient presents with Emergency Department Follow-Up Continued symptoms of feeling lightheadedness, blurred vision in left eye, smells gasoline documented in this encounter Plan of Treatment Upcoming Encounters Date Type Department Care Team (Late st Contact Info) Description 03/28/2024 10:30 AM EDT Imaging Radiology, [address] [place] [address] 04/25/2024 8:15 AM EDT Cardiac Studies Cardiac Studies, [facility] [address] [facility] [place] [address] 05/11/2024 3:00 PM EDT Office Visit Gynecology/Obstetrics [facility] [address] [facility] [place] [address] Louann Brooks PA-C [address] [place] [address] 06/17/2024 1:00 PM EDT Office Visit Orthopaedics Spine Surgery, [facility] [address] [facility] [place] [address] Cholo Miramontes MD [address] [place] [address] [place] [address] 12/02/2024 1:40 PM EST Office Visit [place] [address] [place] [phone] Ema Ward MD [address] [place] [address] 12/20/2024 12:00 PM EDT Office Visit Gynecology/Obstetrics [facility] [address] [facility] [place] [address] Nemo Palmer CRNP [address] [place] [address] 03/02/2025 2:20 PM EDT Office Visit Dermatology, [place] [address] [facility] [place] [address] Chesley Slaughter PA-C [address] [place] [address] [place] [address] Scheduled Orders Name Type Priority Associated Diagnoses Orde r Schedule EXTERNAL EKG 8 TO 15 DAYS Holter Routine Syncope and collapse Expected: 03/15/2024 (Approximate), Expires: 03/14/2025 ECHO, COMPLETE (2D), TRANS-THORACIC Echocardiology Routine Syncope and collapse Expected: 03/14/2024 (Approximate), Expires: 03/14/2025 Scheduled Procedures Name Priority Associated Diagnoses Date/Ti me COLONOSCOPY FLEXIBLE PROXIMAL DIAGNOSTIC Recall Colon cancer screening Health Maintenance Due Date Last Done Comments HIV Screening 1981 Hepatitis C Screening 02/20/1984 Hepatitis B (1 of 3 - 19+ 3-dose series) 1985 Cologuard 2011 Fecal Occult Blood Test 2011 Sigmoidoscopy 2011 COVID-19 Vaccine (2022- season) 2023 02/28/2021, 02/07/2021 Mammogram 04/01/2024 04/01/2023, 03/06, 03/27/2021, Additional history exists Influenza Vaccine (FLU shot) (Season Ended) 2024 07/22/2022, 08/13/2021, 07/05/2020, Additional history exists Depression Screening 03/07/2025 03/07/2024 De León's Esophagus Surveilance 12/24/2025 12/24/2022, 12/24/2022, 03/07/2020, Additional history exists Colonoscopy 11/04/2026 11/04/2016, 11/04/2016 Colorectal Cancer Screening 11/04/2026 Diabetes Screening 11/26/2026 11/26/2023, 0 11/28/2022, 04/25/2021, Additional history exists Lipid Panel 11/26/2028 11/26/2023, 0204/2022, 11/11/2021, Additional history exists DTaP,Tdap,and Td Vaccines [...] this encounter Medical Devices Implanted Type Area Senior Cognos Developer Device Identifier Shelf Expiration Date Model / Serial / Lot Graft Infus Bone Lg Ii [id number] - [id number] Implanted:Qty : 1 on 10/21/2006 [place] [facility] [place]: Spine Lumbar Medtronic Sofamor Danek [id number] / / [id number] Screw Canc 6.5mm 216.030 - [id number] Implanted:Qty : 1 on 10/21/2006 at [place] [facility] [place]A: Spine Lumbar SYNTHES 216.030 / / Washer 13.0mm 219.99 - [id number] Implanted:Qty : 1 on 10/21/2006 at [place] [facility] [place] N/A: Spine Lumbar SYNTHES 219.99 / / Acromed [id number] [place] - [id number] Implanted:Qty : 4 on 10/21/2006 at [place] [facility] [place] N/A: Spine Lumbar DEON & DEON DEPUY [id number] / / Acromed [id number] [place] - [id number] Implanted:Qty : 4 on 10/21/2006 at [place] [facility] [place] N/A: Spine Lumbar DEON & DEON DEPUY [id number] / / Graft I/C Chamber 10cc [id number] - [id number] Implanted:Qty : 1 on 10/21/2006 at [place] [facility] [place] N/A: Spine Lumbar LIFENET [id number] / [id number] / Acromed [id number] [place] - [id number] Implanted:Qty : 2 on 10/21/2006 at [place] [facility] [place] N/A: Spine Lumbar DEON & DEON DEPUY [id number] / / Spacer Frame Implanted:Qty : 1 on 10/21/2006 at [place] [facility] [place] MUSCULOSKELETAL TRANSPLANT FND [id number] / [id number] / documented as of this encounter Visit Diagnoses Diagnosis Syncope and collapse- Primary Primary insomnia Persistent disorder of initiating or maintaining sleep Dysphagia, unspecified type De León's esophagus without dysplasia De León's esophagus Gastroesophageal reflux disease without esophagitis Esophageal reflux Stroke-like episode Unspecified cerebral artery occlusion with cerebral infarction documented in this encounter Care Teams Systems Integration Analyst Relationship Specialty Start Date End Date Ema Ward MD [address] [place] [address] PCP - General Family Medicine 02/04/22 documented as of this encounter
--- OUTSIDE RECORDS SUMMARY | 2024-04-02 04:49 | External Medical Summary ---
Author Name Unknown Address Unknown Organization K01:LABORATORY [address] [place] [address] Laboratory Report Ordering Provider Test Date Status SOLIS MENDOZA 03/16/2024 13:34:00 Final Rheumatoid factor at a level above 50 [...] definitively correlate with clinical severity of disease. Observation Date Value Abnormality Reference (Units ) Status Fibrin D-dimer FEU [Mass/volume] in Platelet poor plasma by Immunoassay 03/16/2024 13:34:00 0.27 <0.50 (ug/mL FEU) Final Performing Location [place] [facility] [place] [facility] [address] [facility] [address]
--- OUTSIDE RECORDS SUMMARY | 2024-04-02 04:49 | External Medical Summary ---
Author Name Unknown Address Unknown Organization K01:LABORATORY [facility] - [address] [place] [address] Laboratory Report Ordering Provider Test Date Status SOLIS MENDOZA 03/16/2024 13:34:00 Final Observation Date Value Abnormality Reference (Units ) Status Phosphate 03/16/2024 13:34:00 4.2 2.5-4.8 (m g/dL) Final Performing Location [facility] [address] [facility] [address]
[2024-04-02 05:28] LABS: Basophils # (auto) 0.02 K/uL (0.00-0.20); Basophils % (auto) 0.3 %; Eosinophils # (auto) 0.02 K/uL (0.00-0.50); Eosinophils % (auto) 0.3 %; Hematocrit (blood only) 37.5 % (37.0-47.0); Hemoglobin 12.4 g/dl (12.0-16.0); Immature Granulocytes # (auto) 0.01 K/uL (0.01-0.20); Immature Granulocytes % (auto) 0.1 %; Lymphocytes % (auto) 43.2 %; Mean Corpuscular Hemoglobin 29.4 pg (25.0-34.0); Mean Corpuscular Hgb Conc 33.1 g/dL (32.0-36.0); Mean Corpuscular Volume 88.9 fL (80.0-100.0); Mean Platelet Volume 12.3 fL (9.4-12.4); Monocytes # (auto) 0.73 K/uL (0.11-0.59); Monocytes % (auto) 10.2 %; Neutrophils # (auto) 3.29 K/uL (1.40-6.50); Neutrophils % (auto) 45.9 %; Platelet Count 195 K/uL (130-400); RDW Coefficient of Variation 12.2 % (11.5-14.5); RDW Standard Deviation 39.7 fL (36.4-46.3); Red Blood Count 4.22 M/uL (4.20-5.40); White Blood Count 7.17 K/ul (4.8-10.8)
[2024-04-02] MEDS: ACETAMINOPHEN 1,000 MG/100 ML VIAL IV STA (05:33)
[2024-04-02] MEDS: ACETAMINOPHEN 1000 MG/100 ML IV IV ONE (05:33)
[2024-04-02] MEDS: ONDANSETRON INJ 2 MG/ML 2 ML VIAL ONE (05:33)
[2024-04-02] MEDS: ONDANSETRON INJ 2 MG/ML 2 ML VIAL IV STA (05:33)
[2024-04-02 05:34] LABS: Alanine Aminotransferase 11 U/L (7-52); Albumin Globulin Ratio 1.3 (0.9-2); Albumin Level 3.9 gm/dl (3.4-5.0); Alkaline Phosphatase 74 U/L (34-104); Anion Gap 4 (3-11); Aspartate Aminotransferase 14 U/L (13-39); BUN Creatinine Ratio 17.3 (10-20); Bilirubin,Total 0.2 mg/dl (0.2-1.0); Blood Urea Nitrogen 13 mg/dl (6-23); Carbon Dioxide 32 mmol/L (21-32); Chloride 104 mmol/L (98-107); Creatinine Clr Calc Pharmacy 88.1 ml/min; Est GFR (African American) 101.8 ml/min; Est GFR (Non-African American) 87.9 ml/min; Glucose 96 mg/dl (70-99(Fasting)); Potassium 3.7 mmol/L (3.5-5.1); Sodium 140 mmol/L (136-145); Total Protein 6.9 gm/dl (6.0-8.3)
[2024-04-02 05:41] LABS: Troponin I High Sensitivity < 2.3 pg/ml (0-14)
--- NOTE | 2024-04-02 05:45 | CT Scan Report ---
Exam(s): CT HEAD Without Contrast EXAM: CT Head Without Intravenous Contrast CLINICAL HISTORY: Reason for exam: syncope/trauma. TECHNIQUE: Axial computed tomography images of the head/brain without intravenous contrast. CTDI is 36.67 mGy and DLP is 624.41 mGy-cm. Automated exposure control was utilized for the study. A dose lowering technique was utilized adhering to the principles of ALARA. COMPARISON: No relevant prior studies available. FINDINGS: Brain: Unremarkable. No hemorrhage. No significant white matter disease. No edema. Ventricles: Unremarkable. No ventriculomegaly. Bones/joints: Unremarkable. No acute fracture. Soft tissues: Unremarkable. Sinuses: Unremarkable as visualized. No acute sinusitis. Mastoid air cells: Unremarkable as visualized. No mastoid effusion. IMPRESSION: Normal head/brain CT. Electronically signed by: Omar Desai MD 04/02/24 05:44 AM
--- NOTE | 2024-04-02 05:47 | CT Scan Report ---
Exam(s): CT C SPINE EXAM: CT Cervical Spine Without Intravenous Contrast CLINICAL HISTORY: Reason for exam: trauma/syncope. TECHNIQUE: Axial computed tomography images of the cervical spine without intravenous contrast. CTDI is 24.86 mGy and DLP is 575.08 mGy-cm. Automated exposure control was utilized for the study. A dose lowering technique was utilized adhering to the principles of ALARA. COMPARISON: No relevant prior studies available. FINDINGS: Vertebrae: Unremarkable. No acute fracture. Discs/spinal canal/neural foramina: No acute findings. No spinal canal stenosis. Mild spondylotic spurring at multiple levels. Soft tissues: Unremarkable. IMPRESSION: Normal cervical spine CT. Electronically signed by: Omar Desai MD 04/02/24 05:46 AM
--- NOTE | 2024-04-02 06:25 | Emergency Department Note ---
Impression & Plan Syncope, cardiogenic ED Provider Note NAME: TOBIN SANCHEZ AGE: 59 SEX: F : 1965 ARRIVES VIA: Ambulance INFORMANT: Patient, ED PROVIDER(S): Grabiel Garcia MD CHIEF COMPLAINT: Syncopal episode HPI: This is a 59-year-old female presenting for syncopal episode and fall. Patient states that she was getting out of her bed and to go to the bathroom. She had a syncopal episode and fell down. She states he struck her head against the floor. She notes a headache, frontal, contusions and some elbow pain. Otherwise she notes that she has had syncope for the past few months and had previous monitor placed on her heart. She notes that this reported V. tach episode for prior syncope. She has both see a caustic plant worker in [place] as a result of this. Today she does report palpitations patient prior to passing out but no significant chest pain at this time ROS: See above HPI for pertinent positives & negatives. A total of 10 systems reviewed and were otherwise negative. PHYSICAL EXAMINATION: General: resting comfortably in no acute distress Head: Normocephalic and atraumatic Eyes: Normal inspection, extraocular muscles intact Ear, nose, throat: Normal external exam Neck: Normal range of motion, in c-collar Respiratory: lungs clear to auscultation bilaterally Cardiovascular: Regular rate/rhythm, no murmur GI: soft, nontender, no guarding or rebound Extremities: nontender, moves all extremities Neuro: The patient awake and alert, appropriately conversive, no focal deficits, symmetric faces Skin: Warm, dry, and intact MEDICAL DECISION MAKING: This is a 59-year-old female presenting for syncopal episode/fall. Will do screening trauma workup with head CT/C-spine as this where she hit her head. Otherwise we will do EKG, troponin and basic blood work. -Able to pull records of her rhythm from the [facility] monitor showing 6 beats of V. tach on 03/16 related to a prior syncope. -Patient does have caustic plant worker at this time however with her now recurring syncope and this previous V. tach, will admit for cardiogenic syncope rule out. - blood work is reviewed showing no leukocytosis or anemia. Electrolytes within normal limits. - Troponin negative. -CT of the head and neck are negative for traumatic injury -Discussed with Dr. Gresham for admission Differential diagnosis: Cardiac syncope, ER treatment provided: See below Diagnostics interpreted by me: ECG: ECG independently interpreted by me with normal sinus rhythm, rate of 81, normal NM, normal QRS, normal QTc, no ST segment elevations consistent with STEMI criteria Cardiac Monitoring: An order was placed for continuous cardiac monitoring. The monitor shows a rate of 80 with sinus rhythm. Laboratory studies: As stated above and show below. Imaging studies: See below. Past Med/Surg History Problem List (Updated 04/02/24 @ 06:43 by Grabiel Garcia MD) Syncope, cardiogenic (Acute) Adjustment insomnia Intermittent confusion Muscle weakness right sided Complicated migraine Stroke-like symptom (Acute) Acute right-sided muscle weakness (Acute) Hemangioma GERD (gastroesophageal reflux disease) Weakness Dizziness Depression with anxiety Fibromyalgia (Chronic) Migraine (Chronic) Medical History (Updated 04/02/24 @ 06:43 by Grabiel Garcia MD) Vitamin D deficiency Sacral radiculopathy Pain in extremity Memory loss Fatigue Chronic migraine without aura Cervical radiculopathy at C8 Basilar artery migraine Abnormal laboratory test result Surgical History H/O Spinal surgery Hx of tonsillectomy History of total hysterectomy Family History Other Breast cancer Heart disease Social History Smoking Status: Never smoker Hx Alcohol Use: No Hx Substance Use: No Preferred Language: Iranian Communication Ability: Effective Director Of Residence Life Required: No Beliefs That Will Affect Care: None Current Living Situation: Spouse Current Living Situation Comment: Lives with and son Feels Safe at Home: Yes Assistive Devices: None Allergies Allergies Allergy/AdvReac Type Severity Reaction Status Date / Time lamotrigine [From Lamictal] Allergy Mild Rash Verified 11/19/23 15:03 milnacipran Allergy Unknown UNKNOWN Verified 11/19/23 15:03 morphine Allergy Unknown unknown Verified 11/19/23 15:03 codeine AdvReac Mild NAUSEA/VOMI Verified 11/19/23 15:03 TING Home Meds Home Medications Medication Instructions Recorded Confirmed pregabalin 225 mg capsule (Lyrica) 225 mg PO BID 01/22/19 11/19/23 ascorbate calcium-bioflavonoid 500 1 tab PO DAILY 04/28/19 11/19/23 mg-200 mg tablet (Federica-C with Bioflavonoids) calcium carbonate 500 mg-vitamin 1 tab PO BID 05/04/19 11/19/23 D3 5 mcg (200 unit) tablet (Os-Jose Daniel 500 + D3) docusate sodium 100 mg capsule 100 mg PO DAILY PRN Constipation 04/21/23 11/19/23 (Colace) pantoprazole 40 mg tablet,delayed 40 mg PO DAILY 05/19/23 11/19/23 release magnesium glycinate 100 mg tablet 400 mg PO DAILY 07/22/23 11/19/23 riboflavin (vitamin B2) 400 mg 400 mg PO DAILY 07/22/23 11/19/23 tablet Previous Rx's Medication Instructions Recorded venlafaxine 150 mg See Rx Instructions .Route 11/03/19 capsule,extended release 24 hr .COMPLEX #90 caps aspirin 81 mg capsule 81 mg PO DAILY #30 caps 05/19/23 atorvastatin 40 mg tablet 40 mg PO QAM #30 tabs 05/19/23 amitriptyline 10 mg tablet 10 mg PO DAILY #30 tabs 11/19/23 naproxen 500 mg tablet 500 mg PO DAILY PRN pain #60 tabs 11/19/23 rimegepant 75 mg disintegrating 75 mg PO Q OTHER DAY #14 tabs 11/19/23 tablet (Nurtec ODT) baclofen 20 mg tablet 10 mg (1/2 x 20 mg) PO HS #30 tabs 02/19/24 Results & Data (ED) Vital Signs Vital Signs - 24 hr 04/02/24 04:32 04/02/24 04:32 04/02/24 04:58 Temperature 36.9 C Temperature Source Oral Pulse Rate 75 80 Respiratory Rate 16 Respiratory Effort / Characteristics Non-Labored Respiratory Depth Normal Blood Pressure 168/80 H Blood Pressure Mean 109 Pulse Oximetry 96 95 Oxygen Delivery Method Room Air Room Air Sepsis Recent Fever Within 48 Hours No Sepsis New/Unexplained Change in Mental Status No Sepsis Action Taken by Nursing No Action Required Laboratory Data 04/02/24 04:57 04/02/24 04:57 Lab Results 04/02/24 Range/Units 04:57 WBC 7.17 (4.8-10.8) K/ul RBC 4.22 (4.20-5.40) M/uL Hgb 12.4 (12.0-16.0) g/dl Hct 37.5 (37.0-47.0) % MCV 88.9 (80.0-100.0) fL MCH 29.4 (25.0-34.0) pg MCHC 33.1 (32.0-36.0) g/dL RDW Std Deviation 39.7 (36.4-46.3) fL RDW Coeff of Delmi 12.2 (11.5-14.5) % Plt Count 195 (130-400) K/uL MPV 12.3 (9.4-12.4) fL Immature Gran % (Auto) 0.1 % Neut % (Auto) 45.9 % Lymph % (Auto) 43.2 % Stone % (Auto) 10.2 % Eos % (Auto) 0.3 % Baso % (Auto) 0.3 % Neut # (Auto) 3.29 (1.40-6.50) K/uL Lymph # (Auto) 3.10 (1.20-3.40) K/uL Stone # (Auto) 0.73 H (0.11-0.59) K/uL Eos # (Auto) 0.02 (0.00-0.50) K/uL Baso # (Auto) 0.02 (0.00-0.20) K/uL Immature Gran # (Auto) 0.01 (0.01-0.20) K/uL Sodium 140 (136-145) mmol/L Potassium 3.7 (3.5-5.1) mmol/L Chloride 104 (98-107) mmol/L Carbon Dioxide 32 (21-32) mmol/L Anion Gap 4 (3-11) BUN 13 (6-23) mg/dl Creatinine 0.75 (0.6-1.2) mg/dl Est Cr Clr Drug Dosing 88.1 ml/min Est GFR ( Amer) 101.8 ml/min Est GFR (Non-Af Amer) 87.9 ml/min BUN/Creatinine Ratio 17.3 (10-20) Glucose 96 (70-99(Fasting)) mg/dl Calcium 9.0 (8.6-10.3) mg/dl Magnesium 2.0 (1.7-2.4) mg/dl Total Bilirubin 0.2 (0.2-1.0) mg/dl AST 14 (13-39) U/L ALT 11 (7-52) U/L Alkaline Phosphatase 74 (34-104) U/L Troponin I High Sens < 2.3 (0-14) pg/ml Total Protein 6.9 (6.0-8.3) gm/dl Albumin 3.9 (3.4-5.0) gm/dl Globulin 3.0 (2.5-4.0) gm/dl Albumin/Globulin Ratio 1.3 (0.9-2) Administered Medications Discontinued Medications Acetaminophen (Acetaminophen 1000 Mg/100 Ml Iv) Confirm Administered Dose 1,000 mg IV .STK-MED ONE Stop: 04/02/24 05:31 Last Admin: 04/02/24 05:33 Dose: Not Given Documented By: Acetaminophen (Ofirmev) 1,000 mg in 100 mls @ 400 mls/hr IV NOW STA Stop: 04/02/24 05:46 Last Infusion: 04/02/24 05:50 Dose: Infused Documented By: Admin: 04/02/24 05:33 Dose: 400 mls/hr Documented By: Ondansetron HCl (Ondansetron Inj 2 Mg/Ml 2 Ml Vial) Confirm Administered Dose 4 mg .ROUTE .STK-MED ONE Stop: 04/02/24 05:29 Last Admin: 04/02/24 05:33 Dose: Not Given Documented By: Ondansetron HCl (Ondansetron Inj 2 Mg/Ml 2 Ml Vial) 4 mg IV NOW STA Stop: 04/02/24 05:32 Last Admin: 04/02/24 05:33 Dose: 4 mg Documented By: Imaging Data Radiologist's Impression: Cervical Spine CT 04/02/24 04:52 Exam(s): CT C SPINE EXAM: CT Cervical Spine Without Intravenous Contrast CLINICAL HISTORY: Reason for exam: trauma/syncope. TECHNIQUE: Axial computed tomography images of the cervical spine without intravenous contrast. CTDI is 24.86 mGy and DLP is 575.08 mGy-cm. Automated exposure control was utilized for the study. A dose lowering technique was utilized adhering to the principles of ALARA. COMPARISON: No relevant prior studies available. FINDINGS: Vertebrae: Unremarkable. No acute fracture. Discs/spinal canal/neural foramina: No acute findings. No spinal canal stenosis. Mild spondylotic spurring at multiple levels. Soft tissues: Unremarkable. IMPRESSION: Normal cervical spine CT. Electronically signed by: Omar Desai MD 04/02/24 05:[address] 04/02/24 04:52 Exam(s): CT HEAD Without Contrast EXAM: CT Head Without Intravenous Contrast CLINICAL HISTORY: Reason for exam: syncope/trauma. TECHNIQUE: Axial computed tomography images of the head/brain without intravenous contrast. CTDI is 36.67 mGy and DLP is 624.41 mGy-cm. Automated exposure control was utilized for the study. A dose lowering technique was utilized adhering to the principles of ALARA. COMPARISON: No relevant prior studies available. FINDINGS: Brain: Unremarkable. No hemorrhage. No significant white matter disease. No edema. Ventricles: Unremarkable. No ventriculomegaly. Bones/joints: Unremarkable. No acute fracture. Soft tissues: Unremarkable. Sinuses: Unremarkable as visualized. No acute sinusitis. Mastoid air cells: Unremarkable as visualized. No mastoid effusion. IMPRESSION: Normal head/brain CT. Electronically signed by: Omar Desai MD 04/02/24 05:44 AM Discharge Plan Visit Data Chief Complaint: Syncope Stated Complaint: Syncope, GLF, R Elbow Pain, Headache ED Provider: Grabiel Garcia Discharge Problem: Syncope, cardiogenic Forms Stand Alone Forms: My [facility] Prescriptions Prescriptions: No Action venlafaxine 150 mg capsule,extended release 24hr See Rx Instructions .ROUTE .COMPLEX Qty: 90 3RF Dose Instruction: TAKE 1 CAPSULE BY MOUTH DAILY Rx Instructions: TAKE 1 CAPSULE BY MOUTH DAILY baclofen 20 mg tablet 10 mg PO HS Qty: 30 0RF Federica-C with Bioflavonoids 500-200 mg tablet 1 tab PO DAILY amitriptyline 10 mg tablet 10 mg PO DAILY Qty: 30 2RF naproxen 500 mg tablet 500 mg PO DAILY PRN (Reason: pain) Qty: 60 2RF Nurtec ODT 75 mg tablet,disintegrating 75 mg PO Q OTHER DAY Qty: 14 6RF magnesium glycinate 100 mg tablet 400 mg PO DAILY riboflavin (vitamin B2) 400 mg tablet 400 mg PO DAILY pantoprazole 40 mg tablet,delayed release (DR/EC) 40 mg PO DAILY aspirin 81 mg capsule 81 mg PO DAILY Qty: 30 4RF atorvastatin 40 mg tablet 40 mg PO QAM Qty: 30 4RF pregabalin [Lyrica] 225 mg capsule 225 mg PO BID calcium carbonate-vitamin D3 [Os-Jose Daniel 500 + D3] 500 mg(1,250mg) -200 unit tablet 1 tab PO BID docusate sodium [Colace] 100 mg Capsule 100 mg PO DAILY PRN (Reason: Constipation) Referrals Referrals: Ema Ward MD [Primary Care Provider] -
--- NOTE | 2024-04-02 07:58 | History & Physical Report ---
Date of Service April 02, 2024 Assessment & Plan (1) Syncope: Plan: 59-year-old female with past medical history significant for high cholesterol, orthostatic hypotension, De León's esophagus, fibromyalgia, complicated migraine, depression with anxiety, dizziness comes with recurrent syncopes. Patient was in the ER on March 12 with syncope workup with CT head and EKG was okay and she was discharged. She followed with PCP on March 14 and zio monitor was placed. Patient lives with her son and his . As per the son to get second opinion they went to [facility] and got admitted on March 16 and was discharged on March 18, 2024. As per discharge summary from [facility] 'tele did not reveal any arrhythmia or conduction abnormalities. Cardiology was consulted.Echo was normal. MRA head and neck no acute findings. Neurology was consulted and EEG was ordered. When being monitored in the EEG patient had 2 additional episodes of psychogenic nonepileptic attacks without any electrical activity suggestive of seizures. And was concluded that the patient has psychogenic's nonepileptic seizures and was discharged home to follow-up with psychiatrist. During admission at [facility] zio patch was removed to get MRI scans and was not able to place back at discharge due to insurance issues.' When she had zio it did show 3-4 runs of SVT which correlated with syncope episode but other patient reported episodes were correlated with normal sinus rhythm. But she had Zio patch only for 3 days. Family says she followed up with psychiatry and there is a plan to start on Prozac which she has not started yet. Couple of days ago she had another syncopal episode. Last night around 4 AM she was trying to get up from the bed and go to bathroom when she had another episode of feeling dizzy and passed out. When she fell she hit her head.Patient says she didn't passed out for long. Son says these episodes last for few seconds. Tonight after she fell she was able to get up herself and called her daughter in law.Son and daughter [id number] came and she seemed confused and she did not know where she was and family was worried about concussion and brought her to the hospital. By the time ambulance came her metal status was back to normal. Currently resting comfortably and hemodynamically stable. Complains of mild headache. Has some blurred visions. Has some chest pain and fluttering feeling. As per son patient getting chest pains on and off. Currently also complains of nausea and some shortness of breath. Appetite is okay. No difficulty swallowing. No fevers. No runny nose or sore throat or cough. No abdominal pain. Normal bowel and bladder movements. No incontinence or biting of her tongue during the episode., She had some shakiness of the right upper extremity during episode which happened before also as per son. Syncope multiple episodes in recent several weeks workup at [facility] as mentioned in h and p unrevealing thought to be psychogenic non epileptic seizures and there is a plan to start Prozac. Currently on Effexor. question of svt during one episode will follow ct head as she hit her head Monitor in tele gentle fluids orthostatics cardio consult. chest pains and shortness of breath we will follow serial cardiac enzymes and repeat EKG and telemetry follow D-dimer And chest x-ray.. Complex migraines Used to take Nurtec as needed but was told to stop At [facility]. currently on baclofen. And also seems to be on pregabalin. Hyperlipidemia on statin. De León's esophagus on Protonix . Depression with anxiety on Effexor DVT prophylaxis SCDs for now disposition observation telemetry full code History of Present Illness Chief Complaint: Syncope Primary Care Provider: Ema Ward MD 59-year-old female with past medical history significant for high cholesterol, orthostatic hypotension, De León's esophagus, fibromyalgia, complicated migraine, depression with anxiety, dizziness comes with recurrent syncopes. Patient was in the ER on March 12 with syncope workup with CT head and EKG was oka y and she was discharged. She followed with PCP on March 14 and zio monitor was placed. Patient lives with her son and his . As per the son to get second opinion they went to [facility] and got admitted on March 16 and was discharged on March 18, 2024. As per discharge summary from [facility] did not reveal any arrhythmia or conduction abnormalities. Cardiology was consulted.Echo was normal. MRA head and neck no acute findings. Neurology was consulted and EEG was ordered. When being monitored in the EEG patient had 2 additional episodes of psychogenic nonepileptic attacks without any electrical activity suggestive of seizures. And was concluded that the patient has psychogenic's nonepileptic seizures and was discharged home to follow-up with psychiatrist. During admissi on at [facility] zio patch was removed to get MRI scans and was not able to place back at discharge due to insurance issues.' When she had zio it did show 3-4 runs of SVT which correlated with syncope episode but other patient reported episodes were correlated with normal sinus rhythm. But she had Zio patch only for 3 days. Family says she followed up with psychiatry and there is a plan to start on Prozac which she has not started yet. Couple of days ago she had another syncopal episode. Last night around 4 AM she was trying to get up from the bed and go to bathroom when she had another episode of feeling dizzy and passed out. When she fell she hit her head.Patient says she didn't passed out for long. Son says these episodes last for few seconds. Tonight after she fell she was able to get up herself and called her daughter in law.Son and daughter [id number] came and she seemed confused and she did not know where she was and family was worried about concussion and brought her to the hospital. By the time ambulance came her metal status was back to normal. Currently resting comfortably and hemodynamically stable. Complains of mild headache. Has some blurred visions. Has some chest pain and fluttering feeling. As per son patient getting chest pains on and off. Currently also complains of nausea and some shortness of breath. Appetite is okay. No difficulty swallowing. No fevers. No runny nose or sore throat or cough. No abdominal pain. Normal bowel and bladder movements. No incontinence or biting of her tongue during the episode., She had some shakiness of the right upper extremity during episode which happened before also as per son. Past medical history. As mentioned above. past surgical history. Colonoscopy and EGD. Injection of the Lumbar spine. Lumbar spine fusions. Tonsillectomy. Total hysterectomy. Social history. . No smoking. No alcohol. No drug use. Family history. Sister had breast cancer. Mother has glaucoma. Heart attack. Heart failure. Thyroid disorder. Allergies Allergy/AdvReac Type Severity Reaction Status Date / Time lamotrigine [From Lamictal] Allergy Mild Rash Verified 04/02/24 08:06 milnacipran Allergy Unknown UNKNOWN Verified 04/02/24 08:06 morphine Allergy Unknown unknown Verified 04/02/24 08:06 codeine AdvReac Mild NAUSEA/VOMI Verified 04/02/24 08:06 TING Home Medications Medication Instructions Recorded Confirmed Type aspirin 81 mg tablet,delayed 81 mg PO DAILY 04/02/24 04/02/24 History release atorvastatin 20 mg tablet 20 mg PO DAILY 04/02/24 04/02/24 History baclofen 20 mg tablet 20 mg PO UD 04/02/24 04/02/24 History pantoprazole 40 mg tablet,delayed 40 mg PO DAILY 04/02/24 04/02/24 History release pregabalin 225 mg capsule 225 mg PO BID 04/02/24 04/02/24 History venlafaxine 150 mg 150 mg PO DAILY 04/02/24 04/02/24 History capsule,extended release 24 hr Past Med/Surg History Problem List (Updated 04/02/24 @ 07:43 by Alex Gresham MD) Syncope Syncope, cardiogenic (Acute) Adjustment insomnia Intermittent confusion Muscle weakness right sided Complicated migraine Stroke-like symptom (Acute) Acute right-sided muscle weakness (Acute) Hemangioma GERD (gastroesophageal reflux disease) Weakness Dizziness Depression with anxiety Fibromyalgia (Chronic) Migraine (Chronic) Medical History (Updated 04/02/24 @ 07:43 by Alex Gresham MD) Vitamin D deficiency Sacral radiculopathy Pain in extremity Memory loss Fatigue Chronic migraine without aura Cervical radiculopathy at C8 Basilar artery migraine Abnormal laboratory test result Surgical History H/O Spinal surgery Hx of tonsillectomy History of total hysterectomy Family History Other Breast cancer Heart disease Social History Smoking Status: Never smoker Hx Alcohol Use: No Hx Substance Use: No Preferred Language: Albanian Communication Ability: Effective Project Assistant Required: No Beliefs That Will Affect Care: None Current Living Situation: Spouse Current Living Situation Comment: Lives with and son Feels Safe at Home: Yes Assistive Devices: None Review of Systems Review of Systems: All systems reviewed & are unremarkable except as noted in HPI & below Physical Exam Physical Exam: General- Not in distress Head- mild bruise seen on left forehead. Eyes- PERRL. ENT- oropharynx clear Neck- supple, no JVD. Lungs- clear to auscultation no wheezing or crackles. Heart- regular rate and rhythm; no murmur, no gallop. Abdomen- normal bowel sounds, soft, nontender, no distension. Extremities- no pretibial edema, no erythema seen. Neuro- alert, oriented PERRL, no facial palsy; no dysarthria; motor 5/5 bilaterally Skin- warm & dry Results & Data Results & Data Vital Signs (Past 12 Hours) Vital Signs Temp Pulse Resp BP Pulse Ox O2 Del Method 04/02/24 04:58 80 04/02/24 04:32 95 Room Air 04/02/24 04:32 36.9 C 75 16 168/80 H 96 Room Air Diagnostic Findings Laboratory Results WBC 7.17 K/ul (4.8-10.8) 04/02/24 04:57 RBC 4.22 M/uL (4.20-5.40) 04/02/24 04:57 Hgb 12.4 g/dl (12.0-16.0) 04/02/24 04:57 Hct 37.5 % (37.0-47.0) 04/02/24 04:57 MCV 88.9 fL (80.0-100.0) 04/02/24 04:57 MCH 29.4 pg (25.0-34.0) 04/02/24 04:57 MCHC 33.1 g/dL (32.0-36.0) 04/02/24 04:57 RDW Std Deviation 39.7 fL (36.4-46.3) 04/02/24 04:57 RDW Coeff of Delmi 12.2 % (11.5-14.5) 04/02/24 04:57 Plt Count 195 K/uL (130-400) 04/02/24 04:57 MPV 12.3 fL (9.4-12.4) 04/02/24 04:57 Immature Gran % (Auto) 0.1 % 04/02/24 04:57 Neut % (Auto) 45.9 % 04/02/24 04:57 Lymph % (Auto) 43.2 % 04/02/24 04:57 [place] % (Auto) 10.2 % 04/02/24 04:57 Eos % (Auto) 0.3 % 04/02/24 04:57 Baso % (Auto) 0.3 % 04/02/24 04:57 Neut # (Auto) 3.29 K/uL (1.40-6.50) 04/02/24 04:57 Lymph # (Auto) 3.10 K/uL (1.20-3.40) 04/02/24 04:57 [place] # (Auto) 0.73 K/uL (0.11-0.59) H 04/02/24 04:57 Eos # (Auto) 0.02 K/uL (0.00-0.50) 04/02/24 04:57 Baso # (Auto) 0.02 K/uL (0.00-0.20) 04/02/24 04:57 Immature Gran # (Auto) 0.01 K/uL (0.01-0.20) 04/02/24 04:57 Sodium 140 mmol/L (136-145) 04/02/24 04:57 Potassium 3.7 mmol/L (3.5-5.1) 04/02/24 04:57 Chloride 104 mmol/L (98-107) 04/02/24 04:57 Carbon Dioxide 32 mmol/L (21-32) 04/02/24 04:57 Anion Gap 4 (3-11) 04/02/24 04:57 BUN 13 mg/dl (6-23) 04/02/24 04:57 Creatinine 0.75 mg/dl (0.6-1.2) 04/02/24 04:57 Est Cr Clr Drug Dosing 88.1 ml/min 04/02/24 04:57 Est GFR ( Amer) 101.8 ml/min 04/02/24 04:57 Est GFR (Non-Af Amer) 87.9 ml/min 04/02/24 04:57 BUN/Creatinine Ratio 17.3 (10-20) 04/02/24 04:57 Glucose 96 mg/dl (70-99(Fasting)) 04/02/24 04:57 Calcium 9.0 mg/dl (8.6-10.3) 04/02/24 04:57 Magnesium 2.0 mg/dl (1.7-2.4) 04/02/24 04:57 Total Bilirubin 0.2 mg/dl (0.2-1.0) 04/02/24 04:57 AST 14 U/L (13-39) 04/02/24 04:57 ALT 11 U/L (7-52) 04/02/24 04:57 Alkaline Phosphatase 74 U/L (34-104) 04/02/24 04:57 Troponin I High Sens < 2.3 pg/ml (0-14) 04/02/24 04:57 Total Protein 6.9 gm/dl (6.0-8.3) 04/02/24 04:57 Albumin 3.9 gm/dl (3.4-5.0) 04/02/24 04:57 Globulin 3.0 gm/dl (2.5-4.0) 04/02/24 04:57 Albumin/Globulin Ratio 1.3 (0.9-2) 04/02/24 04:[address] 04/02/24 04:52 Exam(s): CT C SPINE EXAM: CT Cervical Spine Without Intravenous Contrast CLINICAL HISTORY: Reason for exam: trauma/syncope. TECHNIQUE: Axial computed tomography images of the cervical spine without intravenous contrast. CTDI is 24.86 mGy and DLP is 575.08 mGy-cm. Automated exposure control was utilized for the study. A dose lowering technique was utilized adhering to the principles of ALARA. COMPARISON: No relevant prior studies available. FINDINGS: Vertebrae: Unremarkable. No acute fracture. Discs/spinal canal/neural foramina: No acute findings. No spinal canal stenosis. Mild spondylotic spurring at multiple levels. Soft tissues: Unremarkable. IMPRESSION: Normal cervical spine CT. Electronically signed by: Omar Desai MD 04/02/24 05:[address] 04/02/24 04:52 Exam(s): CT HEAD Without Contrast EXAM: CT Head Without Intravenous Contrast CLINICAL HISTORY: Reason for exam: syncope/trauma. TECHNIQUE: Axial computed tomography images of the head/brain without intravenous contrast. CTDI is 36.67 mGy and DLP is 624.41 mGy-cm. Automated exposure control was utilized for the study. A dose lowering technique was utilized adhering to the principles of ALARA. COMPARISON: No relevant prior studies available. FINDINGS: Brain: Unremarkable. No hemorrhage. No significant white matter disease. No edema. Ventricles: Unremarkable. No ventriculomegaly. Bones/joints: Unremarkable. No acute fracture. Soft tissues: Unremarkable. Sinuses: Unremarkable as visualized. No acute sinusitis. Mastoid air cells: Unremarkable as visualized. No mastoid effusion. IMPRESSION: Normal head/brain CT. Electronically signed by: Omar Desai MD 04/02/24 05:44 AM ECG Additional Comments: ECG. Normal sinus rhythm rate of 81. Nonspecific T wave abnormality in lateral leads. QTc 466. Code Status & VTE Plan VTE Prophylaxis Plan VTE Prophylaxis will be ordered: Yes
--- NOTE | 2024-04-02 09:11 | XRay Report ---
XR chest 1V portable CLINICAL HISTORY: Shortness of breath. COMPARISON STUDY: Chest radiograph January 22, 2019. Chest CT April 21, 2023. FINDINGS: Lung volumes are normal. Lungs are clear. There is no pneumothorax or pleural effusion. Car diac size is normal. Mediastinal contours are normal. There is no evidence for pulmonary edema. IMPRESSION: No acute cardiopulmonary findings. ACT 112: Negative or not required by law. Electronically signed by: Tommie Jean-Baptiste M.D. 04/02/2024 9:10 AM
[2024-04-02 10:19] LABS: D Dimer 410 ug/L FEU (0-500)
[2024-04-02] MEDS ORDERED: NITROGLYCERIN SL 0.4 MG/TAB TAB SL PRN (10:23)
[2024-04-02] MEDS ORDERED: POLYETHYLENE (MIRALAX) 17 GM PACK PO PRN (10:23)
[2024-04-02] MEDS ORDERED: BACLOFEN 10 MG TAB PO PRN (10:41)
[2024-04-02] MEDS: ATORVASTATIN 20 MG TAB PO SCH (11:47)
[2024-04-02] MEDS: ASPIRIN 81 MG ECTAB PO SCH (11:47)
[2024-04-02] MEDS: VENLAFAXINE HCL XR 150 MG CAPXR PO SCH (11:48)
[2024-04-02] MEDS: PANTOprazole 40 MG TAB PO SCH (11:48)
[2024-04-02] MEDS: PREGABALIN 75 MG CAP PO SCH (11:50)
[2024-04-02] MEDS: SODIUM CHLORIDE 0.9% 1,000 ML IV SCH (11:51)
--- NOTE | 2024-04-02 16:27 | Hospitalist Progress Note ---
Date of Service April 02, 2024 Assessment & Plan (1) Syncope: Plan: per admitting service notes with addendum: 59-year-old female with past medical history significant for high cholesterol, orthostatic hypotension, De León's esophagus, fibromyalgia, complicated migraine, depression with anxiety, dizziness comes with recurrent syncopes. Patient was in the ER on March 12 with syncope workup with CT head and EKG was okay and she was discharged. She followed with PCP on March 14 and zio monitor was placed. Patient lives with her son and his . As per the son to get second opinion they went to [facility] and got admitted on March 16 and was discharged on March 18, 2024. As per discharge summary from [facility] did not reveal any arrhythmia or conduction abnormalities. Cardiology was consulted.Echo was normal. MRA head and neck no acute findings. Neurology was consulted and EEG was ordered. When being monitored in the EEG patient had 2 additional episodes of psychogenic nonepileptic attacks without any electrical activity suggestive of seizures. And was concluded that the patient has psychogenic's nonepileptic seizures and was discharged home to follow-up with psychiatrist. During admission at [facility] zio patch was removed to get MRI scans and was not able to place back at discharge due to insurance issues.' When she had zio it did show 3-4 runs of SVT which correlated with syncope episode but other patient reported episodes were correlated with normal sinus rhythm. But she had Zio patch only for 3 days. Family says she followed up with psychiatry and there is a plan to start on Prozac which she has not started yet. Couple of days ago she had another syncopal episode. Last night around 4 AM she was trying to get up from the bed and go to bathroom when she had another episode of feeling dizzy and passed out. When she fell she hit her head.Patient says she didn't passed out for long. Son says these episodes last for few seconds. Tonight after she fell she was able to get up herself and called her daughter in law.Son and daughter [id number]-[id number] came and she seemed confused and she did not know where she was and family was worried about concussion and brought her to the hospital. By the time ambulance came her metal status was back to normal. Currently resting comfortably and hemodynamically stable. Complains of mild headache. Has some blurred visions. Has some chest pain and fluttering feeling. As per son patient getting chest pains on and off. Currently also complains of nausea and some shortness of breath. Appetite is okay. No difficulty swallowing. No fevers. No runny nose or sore throat or cough. No abdominal pain. Normal bowel and bladder movements. No incontinence or biting of her tongue during the episode., She had some shakiness of the right upper extremity during episode which happened before also as per son. Syncope multiple episodes in recent several weeks workup at [facility] as mentioned in h and p unrevealing thought to be psychogenic non epileptic seizures and there is a plan to start Prozac. Currently on Effexor. question of svt during one episode will follow ct head as she hit her head Monitor in tele gentle fluids orthostatics cardio consult. 04/02 Oriented x 3, answering all questions CT head: Negative for acute process Check orthostatic vital signs Check cortisol level Monitor in telemetry Cardiology consulted Chest pains and shortness of breath we will follow serial cardiac enzymes and repeat EKG and telemetry follow D-dimer And chest x-ray.. 04/02 Chest pain resolved Troponins negative EKG no signs of acute ischemia or infarct ACS ruled out D-dimer negative Complex migraines Used to take Nurtec as needed but was told to stop At [facility]. currently on baclofen. And also seems to be on pregabalin. Hyperlipidemia on statin. De León's esophagus on Protonix Depression with anxiety on Effexor DVT prophylaxis SCDs for now disposition pending full code Admission and Anticipated Discharge Date Admission Date: April 02, 2024 Subjective Follow-up for syncopal episode, etc. Seen resting in bed, comfortable, not in distress Patient's son and xuwpuvou-[id number]-lry at the bedside visiting Patient is oriented x 3, answering all questions appropriately Denies headache, dizziness, nausea vomiting, blurring of vision No neurologic symptoms Denies chest pain, palpitations, shortness of breath No other new symptoms Review of Systems Review of Systems: all noted and negative except for above Physical Exam Physical Exam: General- oriented x 3, not in distress, speaks in sentences with no effort or accessory muscle use Head- (+) small hematoma upper forehead Eyes- PERRL, EOMI, anicteric ENT- oropharynx clear Neck- supple, no JVD, no adenopathy, no thyromegaly; carotids +2/2, no bruits appreciated Lungs- clear to auscultation bilaterally, no rales/wheezes Heart- normal rate, regular rhythm; no murmur, no gallop, no rub appreciated Abdomen- normal bowel sounds, nondistended, soft, nontender, no masses or hepatosplenomegaly Extremities- no pretibial edema, no calf tenderness; peripheral pulses intact right forearm: small hematoma left forearm: small hematoma Neuro- alert, oriented x 3; CN 2-12 grossly intact; motor 5/5 bilaterally;sensation 100% on all extremities; no other gross focal neurologic deficits Skin- warm & dry Results & Data Results & Data Vital Signs (Past 12 Hours) Vital Signs Temp Pulse Pulse Resp BP BP Pulse Ox 04/02/24 15:20 36.7 C 82 18 121/69 99 04/02/24 10:47 36.4 C L 70 18 130/88 98 04/02/24 10:27 79 04/02/24 09:52 36.5 C 72 18 113/72 99 04/02/24 09:33 83 16 122/76 97 04/02/24 08:13 82 16 141/83 H 98 04/02/24 07:20 73 16 135/82 96 04/02/24 06:00 137/84 04/02/24 06:00 74 18 137/84 96 04/02/24 05:30 76 22 135/86 97 04/02/24 04:58 80 04/02/24 04:51 80 20 165/88 H 100 04/02/24 04:32 95 04/02/24 04:32 36.9 C 75 16 168/80 H 96 O2 Del Method 04/02/24 15:20 Room Air 04/02/24 10:47 Room Air 04/02/24 10:27 04/02/24 09:52 Room Air 04/02/24 09:33 Room Air 04/02/24 08:13 Room Air 04/02/24 07:20 Room Air 04/02/24 06:00 04/02/24 06:00 04/02/24 05:30 04/02/24 04:58 04/02/24 04:51 04/02/24 04:32 Room Air 04/02/24 04:32 Room Air all noted and reviewed including below
[2024-04-02 17:05] LABS: Appearance Urine Clear (Clear); Bilirubin Urine Negative (Negative); Blood Urine Negative (Negative); Color Urine Yellow; Glucose Urine UA Negative (Negative); Ketones Urine Negative (Negative); Leukocyte Esterase Urine Negative (Negative); Nitrite Urine Negative (Negative); Protein Urine Negative (Negative); Urobilinogen Urine Negative (Negative); pH Urine 8.5 (4.5-7.5)
--- NOTE | 2024-04-02 18:02 | Electrocardiogram Report ---
Test Reason : Blood Pressure : / mmHG Vent. Rate : 081 BPM Atrial Rate : 081 BPM P-R Int : 126 ms QRS Dur : 084 ms QT Int : 402 ms P-R-T Axes : 031 016 038 degrees QTc Int : 466 ms Normal sinus rhythm Normal ECG When compared with ECG of 12-MAR-2024 04:28, No significant change Confirmed by Estiven Gordon ([id number]) on 04/02/2024 6:02:05 PM Referred By: REFERRED SELF Confirmed By:Estiven Gordon
[2024-04-02] MEDS: BACLOFEN 20 MG TAB PO SCH ×2 (20:02→20:33)
[2024-04-03] MEDS: ACETAMINOPHEN 325 MG TAB PO PRN (01:00)
[2024-04-03 07:35] LABS: Basophils # (auto) 0.02 K/uL (0.00-0.20); Basophils % (auto) 0.3 %; Eosinophils # (auto) 0.02 K/uL (0.00-0.50); Eosinophils % (auto) 0.3 %; Hematocrit (blood only) 36.1 % (37.0-47.0); Hemoglobin 11.7 g/dl (12.0-16.0); Immature Granulocytes # (auto) 0.01 K/uL (0.01-0.20); Immature Granulocytes % (auto) 0.2 %; Lymphocytes # (auto) 2.46 K/uL (1.20-3.40); Lymphocytes % (auto) 37.3 %; Mean Corpuscular Hemoglobin 29.3 pg (25.0-34.0); Mean Corpuscular Hgb Conc 32.4 g/dL (32.0-36.0); Mean Corpuscular Volume 90.3 fL (80.0-100.0); Mean Platelet Volume 11.9 fL (9.4-12.4); Monocytes # (auto) 0.57 K/uL (0.11-0.59); Monocytes % (auto) 8.6 %; Neutrophils # (auto) 3.52 K/uL (1.40-6.50); Neutrophils % (auto) 53.3 %; Platelet Count 181 K/uL (130-400); RDW Coefficient of Variation 12.3 % (11.5-14.5); RDW Standard Deviation 40.9 fL (36.4-46.3)
[2024-04-03 07:42] LABS: Calcium 8.2 mg/dl (8.6-10.3); Creatinine Clr Calc Pharmacy 108.3 ml/min; Est GFR (African American) 113.4 ml/min; Est GFR (Non-African American) 97.9 ml/min; Magnesium 1.9 mg/dl (1.7-2.4); Potassium 3.9 mmol/L (3.5-5.1)
--- NOTE | 2024-04-03 07:47 | Electrocardiogram Report ---
Test Reason : Blood Pressure : / mmHG Vent. Rate : 078 BPM Atrial Rate : 078 BPM P-R Int : 142 ms QRS Dur : 090 ms QT Int : 416 ms P-R-T Axes : 044 019 003 degrees QTc Int : 474 ms Normal sinus rhythm Normal ECG When compared with ECG of 02-APR-2024 04:56, No significant change Confirmed by Estiven Gordon ([id number]) on 04/03/2024 7:46:26 AM Referred By: REFERRED SELF Confirmed By:Estiven Gordon
--- NOTE | 2024-04-03 07:51 | Cardiology Consultation ---
Date of Consultation April 03, 2024 Assessment & Plan (1) Syncope: Plan Assessment: 59 year-old female with multiple recent hospitalizations and recurrent syncopal events. Plan: Syncope: -Patient with multiple recurrent syncopal episodes. Cardiac work up thus far has been negative including normal EKG, echocardiogram demonstrates normal LVEF, no valvular disease. Protracted cardiac monitoring both through hospitalization telemetry and 3 days of Zio does not demonstrate any profound lows/highs or significant arrhythmia to suggest etiology. -Neurology involved as noted above with concern for psychogenic's nonepileptic seizures -Labs this morning are unremarkable with exception of a marked low AM Cortisol level. This is a significant finding as low cortisol levels can cause fatigue, unintentional weight loss, poor appetite, Hypotension, and fainting. These levels can be suggestive of adrenal insufficiency and need to be further evaluated by Endocrinology. -No further cardiac work-up inpatient is indicted at this time. patient should keep her scheduled appt as discussed. Case has been discussed with Dr. Luciano. Further recommendations regarding plan of care as per his assessment. I spent a total of 40 minutes on the date of service in preparation, delivery, documentation of the care provided to the patient excluding any time spent in the performance of separately billed services. WILLIE Richards [facility] Cardiology [facility] Supervising Physician Co-Signing Physician Notes I have personally performed a history and physical examination on the patient. I have reviewed the advance practitioner's documentation, and I agree with, and take responsibility for the plan of care. 59-year-old female admitted with recurrent syncope. Recently hospitalized at [facility] without significant cardiac findings. Neurology findings and recommendations noted above. ZIO monitor without symptomatic dysrhythmia. Normal resting LV function. Orthostatic hypotension documented. Low a.m. cortisol level suggesting possible adrenal insufficiency. Agree with addition of hydrocortisone. Consider endocrine evaluation. ACTH pending at this time. Continue telemetry monitoring during hospitalization. Below the knee compression stockings. Liberalize sodium intake and encouraged hydration. Fall precautions and use of counterpressure maneuvers discussed. No further inpatient cardiac testing or intervention recommended at this time. She is currently scheduled for outpatient cardiology follow-up and exercise stress testing. I spent a total of 25 minutes on the date of service in preparation, delivery, and documentation of the care provided to this patient, excluding any time spent in the performance of separately billed services. History of Present Illness Reason for Consultation: syncope Requesting Physician: Belle hospitalist Attending Physician: Lv Zaragoza MD History of Present Illness HPI: Patient is a 59 year old female with PMHx as noted below that presents for recurrent "syncopal" episodes. Primary insomnia Dysphagia Barretts esophagus without dysplasia GERD without esophagitis Migraine Fibromyalgia Recent ED visit on 03/12/24 with syncope work up. Negative CT, normal EKG. discharged. Followed up with PCP on 03/14 and had a ZIO monitor placed. Unfortunately was taken off after 3 days in order for patient to get an MRI Patient was hospitalized 03/14-03/16/24 at [facility] as patient's son wanted a second opinion for his mother's symptoms. Review of records as follows: As per discharge summary from [place] 'tele did not reveal any arrhythmia or conduction abnormalities. Cardiology was consulted.Echo was normal. MRA head and neck no acute findings. Neurology was consulted and EEG was ordered. When being monitored in the EEG patient had 2 additional episodes of psychogenic nonepileptic attacks without any electrical activity suggestive of seizures. And was concluded that the patient has psychogenic's nonepileptic seizures and was discharged home to follow-up with psychiatrist. During admission at [place] zio patch was removed to get MRI scans and was not able to place back at discharge due to insurance issues.' When she had zio it did show 3-4 runs of SVT which correlated with syncope episode but other patient reported episodes were correlated with normal sinus rhythm. Patient was seen by Psychiatry who wishes to start patient on Prozac, which she has not yet started. Since her last hospitalization, patient reports multiple pre-syncopal symptoms and syncopal events. Leading to this admission, patient had reported that she woke around 4am to go to the bathroom, she became dizzy, and passed out, reporting that she hit her head. Family reported that patient appeared confused and was worried that she may have sustained a concussion prompting them to call EMS. By the time EMS arrived, patient's confusion had resolved. She complains of a mild headache, some "chest pain with fluttering", Nausea, shortness of breath" Patient seen and examined in evaluation today. she is resting comfortably in bed at this time. Reports that her episodes are somewhat unpredictable and happen with both sudden position changes and if she has been standing for a long period of time and goes to move about. Denies any active chest pain, pressure, palpitations, no shortness of breath, PND, or edema. She states that when an event happens that it is sudden onset. She reports that she becomes light- headed, feels like "the curtains are coming down" and knows "i am going to pass out" Family is not present at the time of evaluation; however, patient states that her son has witnessed the event and feels that they are brief and last seconds to a minute. She says when she comes to, she typically knows where she is, but there is some mild confusion. She denies any loss of bowel or bladder function. Patient reports that her son has reported "jerking movements and eye twitching" with events. EKG demonstrates NSR, no acute ST-T wave changes. Review of telemetry demonstrates NSR with a rare PAC. Rates 70's-80's. Recent echo [facility] 03/17/2024: Interpretation Summary The examination is limited quality but adequate for evaluation of the referral indication. The qualitative LV ejection fraction is 55-59% (normal). No LV segmental wall motion abnormalities. The right ventricular cavity size is normal (basal dimension < 4.2 cm RV apical 4 chamber view). The right ventricular systolic function is qualitatively normal. No significant valvular disease is present. Recent ZIO 3 days 03/22/24 CONCLUSIONS: Preliminary Findings Prepared by Kellie Godoy, ANAIS 03/22/24 Patient had a min HR of 66 bpm, max HR of 176 bpm, and avg HR of 83 bpm. Predominant underlying rhythm was Sinus Rhythm. 1 run of Ventricular Tachycardia occurred lasting 6 beats with a max rate of 176 bpm (avg 154 bpm). Ventricular Tachycardia was detected within +/- 45 seconds of symptomatic patient event(s). Isolated SVEs were rare (<1.0%), SVE Couplets were rare (<1.0%), and SVE Triplets were rare (<1.0%). Isolated VEs were rare (<1.0%), and no VE Couplets or VE Triplets were present. Allergies Allergy/AdvReac Type Severity Reaction Status Date / Time lamotrigine [From Lamictal] Allergy Mild Rash Verified 04/02/24 08:06 milnacipran Allergy Unknown UNKNOWN Verified 04/02/24 08:06 morphine Allergy Unknown unknown Verified 04/02/24 08:06 codeine AdvReac Mild NAUSEA/VOMI Verified 04/02/24 08:06 TING Home Medications Medication Instructions Recorded Confirmed Type aspirin 81 mg tablet,delayed 81 mg PO DAILY 04/02/24 04/02/24 History release atorvastatin 20 mg tablet 20 mg PO DAILY 04/02/24 04/02/24 History baclofen 20 mg tablet 20 mg PO UD 04/02/24 04/02/24 History pantoprazole 40 mg tablet,delayed 40 mg PO DAILY 04/02/24 04/02/24 History release pregabalin 225 mg capsule 225 mg PO BID 04/02/24 04/02/24 History venlafaxine 150 mg 150 mg PO DAILY 04/02/24 04/02/24 History capsule,extended release 24 hr Patient History Medical History (Updated 04/02/24 @ 07:43 by Alex Gresham MD) Vitamin D deficiency Sacral radiculopathy Pain in extremity Memory loss Fatigue Chronic migraine without aura Cervical radiculopathy at C8 Basilar artery migraine Abnormal laboratory test result Surgical History H/O Spinal surgery Hx of tonsillectomy History of total hysterectomy Family History Other Breast cancer Heart disease Social History Smoking Status: Never smoker Hx Alcohol Use: No Hx Substance Use: No Preferred Language: Icelandic Communication Ability: Effective Retail Visual Merchandiser Required: No Beliefs That Will Affect Care: None Current Living Situation: Family Current Living Situation Comment: son lives with pt Other Information That Helps Us Care for You: No Feels Safe at Home: Yes Safety Concerns: Feels Safe At This Time Assistive Devices: Walker Assistive Devices Comment: Due to syncopal episodes uses walker and needs assistance with stairs Review of Systems Review of Systems: All systems reviewed & are unremarkable except as noted in HPI & below Physical Exam Constitutional: WD/WN, vitals as above well developed and well nourished; no acute distress and not ill appearing Neck: normal visual inspection and trachea midline Respiratory: normal respiratory effort, lungs clear to auscultation no cough Auscultation: no crackles, no rales, no rhonchi and no wheezes Cardiovascular: RRR, no murmur, no edema Heart Sounds: no murmur Vessels: dorsalis pedis pulses present; no JVD Extremities: no edema Skin: no rashes, warm and dry Psychiatric: A+Ox3, euthymic affect Results & Data Vital Signs (Past 12 Hours) Vital Signs Temp Pulse Resp BP Pulse Ox O2 Del Method 04/03/24 07:14 36.4 C L 79 16 119/75 95 Room Air 04/03/24 03:36 36.7 C 81 16 121/69 96 Room Air 04/02/24 23:02 36.7 C 84 16 116/61 95 Room Air Laboratory Results Cardiac Enzymes 04/02/24 04/02/24 04/02/24 Range/Units 10:33 16:09 22:24 Troponin I High Sens < 2.3 < 2.3 < 2.3 (0-14) pg/ml CBC 04/03/24 Range/Units 07:06 WBC 6.60 (4.8-10.8) K/ul RBC 4.00 L (4.20-5.40) M/uL Hgb 11.7 L (12.0-16.0) g/dl Hct 36.1 L (37.0-47.0) % Plt Count 181 (130-400) K/uL Neut # (Auto) 3.52 (1.40-6.50) K/uL Lymph # (Auto) 2.46 (1.20-3.40) K/uL [place] # (Auto) 0.57 (0.11-0.59) K/uL Eos # (Auto) 0.02 (0.00-0.50) K/uL Baso # (Auto) 0.02 (0.00-0.20) K/uL Comprehensive Metabolic Panel 04/03/24 Range/Units 07:06 Sodium 142 (136-145) mmol/L Potassium 3.9 (3.5-5.1) mmol/L Chloride 109 H (98-107) mmol/L Carbon Dioxide 28 (21-32) mmol/L BUN 13 (6-23) mg/dl Creatinine 0.65 (0.6-1.2) mg/dl Glucose 92 (70-99(Fasting)) mg/dl Calcium 8.2 L (8.6-10.3) mg/dl Intake and Output 04/02/24 04/03/24 04/03/24 22:59 06:59 14:59 Intake Total 1299 / 1959 660 / 1960 1000 / 1000 Output Total 1600 / 2850 700 / 2850 600 / 600 Balance -300 / -890 -40 / -890 400 / 400 Intake: IV 1000 / 1000 1000 / 1000 Sodium Chloride 0.9% 1,000 ml @ 1000 / 1000 1000 / 1000 100 mls/hr IV .Q10H [facility] Rx#: [id number] Oral 300 / 960 660 / 960 Output: Urine 1600 / 2850 700 / 2850 600 / 600 Other: Weight 89.4 kg Weight Measurement Method Standing Scale
[2024-04-03] MEDS: KETOROLAC 30 MG/ML VIAL IV ONE (08:22)
[2024-04-03] MEDS: HYDROCORTISONE SOD 50 MG in SYRINGE 0 ML IV STA (09:14)
[2024-04-03] MEDS: SODIUM CHLORIDE 0.9% 1,000 ML IV SCH (10:30)
--- NOTE | 2024-04-03 10:53 | CT Scan Report ---
CT OF THE HEAD WITHOUT CONTRAST CLINICAL HISTORY: headache, s/p fall, head injury COMPARISON STUDY: MRI of the brain April 21, [address] April 02, 2024. CT DOSE: 580.53 mGy.cm TECHNIQUE: Helical axial images of the head were obtained without IV contrast. Automated exposure con trol was utilized for the study. A dose lowering technique was utilized adhering to the principles o f ALARA. FINDINGS: No acute intracranial hemorrhage, midline shift or mass effect is present. The ventricular system is unremarkable. Asymmetric prominence of the left aspect of the pituitary is present. The bas al cisterns are patent. No extra-axial collections are present. There are no findings to suggest acut e dural sinus thrombosis or acute territorial infarct. No significant calvarial abnormalities are pre sent. Visualized portions of the sinuses and mastoid air cells are clear. IMPRESSION: 1. No acute intracranial findings. 2. No calvarial fractures. 3. Asymmetric prominence of the left aspect of the pituitary, suboptimally assessed by CT. Nonemergen t pituitary protocol MRI could be obtained. ACT 112: Negative or not required by law. Electronically signed by: Tommie Jean-Baptiste M.D. 04/03/2024 10:52 AM
--- NOTE | 2024-04-03 15:18 | Hospitalist Progress Note ---
Date of Service April 03, 2024 Assessment & Plan (1) Syncope: Plan: per admitting service notes with addendum: 59-year-old female with past medical history significant for high cholesterol, orthostatic hypotension, De León's esophagus, fibromyalgia, complicated migraine, depression with anxiety, dizziness comes with recurrent syncopes. Patient was in the ER on March 12 with syncope workup with CT head and EKG was okay and she was discharged. She followed with PCP on March 14 and zio monitor was placed. Patient lives with her son and his . As per the son to get second opinion they went to [facility] and got admitted on March 16 and was discharged on March 18, 2024. As per discharge summary from [place] [facility] did not reveal any arrhythmia or conduction abnormalities. Cardiology was consulted.Echo was normal. MRA head and neck no acute findings. Neurology was consulted and EEG was ordered. When being monitored in the EEG patient had 2 additional episodes of psychogenic nonepileptic attacks without any electrical activity suggestive of seizures. And was concluded that the patient has psychogenic's nonepileptic seizures and was discharged home to follow-up with psychiatrist. During admission at [place] zio patch was removed to get MRI scans and was not able to place back at discharge due to insurance issues.' When she had zio it did show 3-4 runs of SVT which correlated with syncope episode but other patient reported episodes were correlated with normal sinus rhythm. But she had Zio patch only for 3 days. Family says she followed up with psychiatry and there is a plan to start on Prozac which she has not started yet. Couple of days ago she had another syncopal episode. Last night around 4 AM she was trying to get up from the bed and go to bathroom when she had another episode of feeling dizzy and passed out. When she fell she hit her head.Patient says she didn't passed out for long. Son says these episodes last for few seconds. Tonight after she fell she was able to get up herself and called her daughter in law.Son and daughter [id number] came and she seemed confused and she did not know where she was and family was worried about concussion and brought her to the hospital. By the time ambulance came her metal status was back to normal. Currently resting comfortably and hemodynamically stable. Complains of mild headache. Has some blurred visions. Has some chest pain and fluttering feeling. As per son patient getting chest pains on and off. Currently also complains of nausea and some shortness of breath. Appetite is okay. No difficulty swallowing. No fevers. No runny nose or sore throat or cough. No abdominal pain. Normal bowel and bladder movements. No incontinence or biting of her tongue during the episode., She had some shakiness of the right upper extremity during episode which happened before also as per son. Syncope Adrenal insufficiency multiple episodes in recent several weeks workup at [place] as mentioned in h and p unrevealing thought to be psychogenic non epileptic seizures and there is a plan to start Prozac. Currently on Effexor. question of svt during one episode will follow ct head as she hit her head Monitor in tele gentle fluids orthostatics cardio consult. 04/02 Oriented x 3, answering all questions CT head: Negative for acute process Check orthostatic vital signs Check cortisol level Monitor in telemetry Cardiology consulted 04/03 Having left-sided headache today Repeat CT head: No acute process positive asymmetric pituitary gland Nonemergent MRI with focus on pituitary gland recommended Positive orthostatic hypotension Cortisol level 1.4 Discussed with [facility] endocrinology service Recommend hydrocortisone 50 mg IV now, then 20 mg p.o. in the morning and 10 mg p.o. at 3 PM May need close outpatient follow-up with neurology service Cardiology service consulted No arrhythmias per telemetry monitoring Chest pains and shortness of breath we will follow serial cardiac enzymes and repeat EKG and telemetry follow D-dimer And chest x-ray.. 04/02 Chest pain resolved Troponins negative EKG no signs of acute ischemia or infarct ACS ruled out D-dimer negative Complex migraines Used to take Nurtec as needed but was told to stop At [place]. currently on baclofen. And also seems to be on pregabalin. 04/[address] head negative for acute process Toradol 30 mg every 6 as needed ordered Also advised to have family bring Nurtec so she can have it here Hyperlipidemia on statin. De León's esophagus on Protonix Depression with anxiety on Effexor DVT prophylaxis SCDs for now disposition Anticipate home when medically stable Admission and Anticipated Discharge Date Admission Date: April 02, 2024 Subjective Follow-up for recurrent syncope, etc. Seen resting in bed, comfortable, not in distress States she feels somewhat better today than yesterday But having left-sided headache, classic of her migraine symptoms Denies blurring of vision, nausea/vomiting Had some dizziness when standing today No fevers or chills No shortness of breath, palpitation, chest pain No other new symptom Review of Systems Review of Systems: all noted and negative except for above Physical Exam Physical Exam: General- oriented x 3, not in distress, speaks in sentences with no effort or accessory muscle use Eyes- anicteric Neck- no JVD Lungs- clear breath sounds bilaterally, no rales/wheezes Heart- normal rate, regular rhythm; no murmurs Abdomen- normal bowel sounds, nondistended, soft, nontender Extremities- no pretibial edema, no calf tenderness Neuro- alert, oriented x 3; no gross focal neurologic deficits Skin- warm & dry Results & Data Results & Data Vital Signs (Past 12 Hours) Vital Signs Temp Pulse Pulse Resp BP Pulse Ox O2 Del Method 04/03/24 14:12 91 H 04/03/24 10:55 36.5 C 75 18 133/81 94 Room Air 04/03/24 08:00 76 04/03/24 07:14 36.4 C L 79 16 119/75 95 Room Air 04/03/24 03:36 36.7 C 81 16 121/69 96 Room Air all noted and reviewed including below
[2024-04-04] MEDS: KETOROLAC 30 MG/ML VIAL IV PRN (07:19)
[2024-04-04] MEDS: HYDROCORTISONE 10 MG TAB PO SCH ×2 (09:02→14:45)
[2024-04-04] MEDS: OPTIRAY 320 125ml IV ONE (16:32)
--- NOTE | 2024-04-04 16:53 | CT Scan Report ---
CT angio neck with con CLINICAL HISTORY: headache, s/p fall, r/o dissection TECHNIQUE: CT angiography of the neck was performed following intravenous administration of iodinated contrast. Coronal and sagittal MIPS were obtained from the axial data set and were submitted for rev iew. Automated dose lowering techniques and/or adjustment according to patient size were utilized fo r this examination. All measurements were calculated based on NASCET criteria. CT DOSE: 489.52 mGy.cm Comparison: Comparison is made to CTA neck 04/21/2023 FINDINGS: A thyroid nodule measures 21 mm. CTA Neck: A 3 vessel aortic arch is shown. There is no significant atherosclerotic plaque in the aor tic arch or the origins of the innominate, left common carotid, and left subclavian arteries. The co mmon carotid, external carotid, cervical segments of the internal carotid arteries, and the cervical segments of the vertebral arteries are patent without hemodynamically significant stenosis. The left vertebral artery is dominant. IMPRESSION: 1. No occlusion, hemodynamically significant stenosis, or dissection in the major cervical arteries. 2. Thyroid nodules are seen. If not previously evaluated, nonemergent thyroid ultrasound can be perf ormed for further evaluation. Assessment of stenosis of the internal carotid arteries is based on NASCET criteria. ACT 112: Positive. There are findings on this exam that require communication between the performing entity and the patient following Patient Test Result Information Act ([place] Act 112) guidelines. Electronically signed by: Joaquin Walters M.D. 04/04/2024 4:51 PM
--- NOTE | 2024-04-04 17:00 | Hospitalist Progress Note ---
Date of Service April 04, 2024 Assessment & Plan (1) Syncope: Plan: per admitting service notes with addendum: 59-year-old female with past medical history significant for high cholesterol, orthostatic hypotension, De León's esophagus, fibromyalgia, complicated migraine, depression with anxiety, dizziness comes with recurrent syncopes. Patient was in the ER on March 12 with syncope workup with CT head and EKG was okay and she was discharged. She followed with PCP on March 14 and zio monitor was placed. Patient lives with her son and his . As per the son to get second opinion they went to [facility] [place] and got admitted on March 16 and was discharged on March 18, 2024. As per discharge summary from [facility] did not reveal any arrhythmia or conduction abnormalities. Cardiology was consulted.Echo was normal. MRA head and neck no acute findings. Neurology was consulted and EEG was ordered. When being monitored in the EEG patient had 2 additional episodes of psychogenic nonepileptic attacks without any electrical activity suggestive of seizures. And was concluded that the patient has psychogenic's nonepileptic seizures and was discharged home to follow-up with psychiatrist. During admission at [facility] zio patch was removed to get MRI scans and was not able to place back at discharge due to insurance issues.' When she had zio it did show 3-4 runs of SVT which correlated with syncope episode but other patient reported episodes were correlated with normal sinus rhythm. But she had Zio patch only for 3 days. Family says she followed up with psychiatry and there is a plan to start on Prozac which she has not started yet. Couple of days ago she had another syncopal episode. Last night around 4 AM she was trying to get up from the bed and go to bathroom when she had another episode of feeling dizzy and passed out. When she fell she hit her head.Patient says she didn't passed out for long. Son says these episodes last for few seconds. Tonight after she fell she was able to get up herself and called her daughter in law.Son and daughter [id number] came and she seemed confused and she did not know where she was and family was worried about concussion and brought her to the hospital. By the time ambulance came her metal status was back to normal. Currently resting comfortably and hemodynamically stable. Complains of mild headache. Has some blurred visions. Has some chest pain and fluttering feeling. As per son patient getting chest pains on and off. Currently also complains of nausea and some shortness of breath. Appetite is okay. No difficulty swallowing. No fevers. No runny nose or sore throat or cough. No abdominal pain. Normal bowel and bladder movements. No incontinence or biting of her tongue during the episode., She had some shakiness of the right upper extremity during episode which happened before also as per son. RecurrentSyncope Adrenal insufficiency multiple episodes in recent several weeks workup at [facility] as mentioned in h and p unrevealing thought to be psychogenic non epileptic seizures and there is a plan to start Prozac. Currently on Effexor. question of svt during one episode will follow ct head as she hit her head Monitor in tele gentle fluids orthostatics cardio consult. 04/02 Oriented x 3, answering all questions CT head: Negative for acute process Check orthostatic vital signs Check cortisol level Monitor in telemetry Cardiology consulted 04/03 Having left-sided headache today Repeat CT head: No acute process positive asymmetric pituitary gland Nonemergent MRI with focus on pituitary gland recommended Positive orthostatic hypotension Cortisol level 1.4 Discussed with [facility] endocrinology service Recommend hydrocortisone 50 mg IV now, then 20 mg p.o. in the morning and 10 mg p.o. at 3 PM May need close outpatient follow-up with neurology service Cardiology service consulted No arrhythmias per telemetry monitoring 04/[address] angiogram head and neck: No dissection or acute process Continue as needed pain meds Continue hydrocortisone 20 mg p.o. in a.m., 10 mg p.o. at [address]H pending repeat CT head: Asymmetric prominence of the left aspect of the pituitary, suboptimally assessed by CT. Nonemergent pituitary protocol MRI could be obtained. Follow-up with endocrinology service as an outpatient CT angiogram: Positive thyroid nodules Will need thyroid ultrasound Chest pains and shortness of breath we will follow serial cardiac enzymes and repeat EKG and telemetry follow D-dimer And chest x-ray.. 04/02 Chest pain resolved Troponins negative EKG no signs of acute ischemia or infarct ACS ruled out D-dimer negative Complex migraines Used to take Nurtec as needed but was told to stop At [facility]. currently on baclofen. And also seems to be on pregabalin. 04/[address] head negative for acute process Toradol 30 mg every 6 as needed ordered Also advised to have family bring [employer] so she can have it here 04/04 Continue pain control Hyperlipidemia on statin. De León's esophagus on Protonix Depression with anxiety on Effexor DVT prophylaxis SCDs for now disposition Anticipate home when medically stable Admission and Anticipated Discharge Date Admission Date: April 02, 2024 Subjective ff up for recurrent syncope, etc Seen resting in bed, comfortable, not in distress In good spirits States she feels better overall Was having headache again earlier this morning but resolved No neurologic symptoms So far, no dizziness when standing up and walking in the room No other symptoms Was notified by RN in the afternoon that patient was again having headache CT angiogram head and neck ordered Review of Systems Review of Systems: all noted and negative except for above Physical Exam Physical Exam: General- oriented x 3, not in distress, speaks in sentences with no effort or accessory muscle use Eyes- anicteric Neck- no JVD Lungs- clear breath sounds bilaterally, No crackles or wheezing Heart- normal rate, regular rhythm; no murmurs Abdomen- normal bowel sounds, nondistended, soft, nontender Extremities- no pretibial edema, no calf tenderness Neuro- alert, oriented x 3; no gross focal neurologic deficits Skin- warm & dry Results & Data Results & Data Vital Signs (Past 12 Hours) Vital Signs Temp Pulse Pulse Resp BP Pulse Ox O2 Del Method 04/04/24 15:37 36.6 C 80 18 146/89 H 93 Room Air 04/04/24 14:00 73 04/04/24 10:23 36.5 C 72 18 137/79 95 Room Air 04/04/24 08:00 73 all noted and reviewed including below
--- NOTE | 2024-04-04 17:35 | CT Scan Report ---
CT angio head w con CLINICAL HISTORY: headache, s/p fall, r/o dissection TECHNIQUE: CT angiography of the head was performed following intravenous administration of iodinated contrast. Coronal and sagittal MIPS were obtained from the axial data set and were submitted for rev iew. Automated dose lowering techniques and/or adjustment according to patient size were utilized fo r this examination. All measurements were calculated based on NASCET criteria. Comparison: Comparison is made to CT head 04/03/2024 FINDINGS: CTA Head: The anterior and posterior cerebral circulations are patent. No hemodynamically significan t stenosis, aneurysm, dissection, or arteriovenous malformation is shown. IMPRESSION: No occlusion, hemodynamically significant stenosis, aneurysm, dissection, or arteriovenous malformati on in the major intracranial arteries. Assessment of stenosis of the internal carotid arteries is based on NASCET criteria. ACT 112: Negative or not required by law. Electronically signed by: Joaquin Walters M.D. 04/04/2024 5:33 PM
[2024-04-05] MEDS: GADOBUTROL 65ML VIAL IV ONE (12:59)
[2024-04-05] MEDS: SODIUM CHLORIDE 0.9% 1,000 ML IV SCH (13:10)
--- NOTE | 2024-04-05 14:10 | Magnetic Resonance Report ---
MR brain pituitary wo/w con CLINICAL HISTORY: asymmetric pituitary, adrenal insufficiency TECHNIQUE: Multiplanar and multisequence MR images of the brain were obtained prior to and following administration of gadolinium contrast. Comparison: Comparison is made to MRI brain 04/21/2023 and CTA head and neck 04/04/2024 FINDINGS: No abnormal restricted diffusion is identified. The white matter is unremarkable. The ventricular sys tem is normal in appearance. No mass or abnormal enhancement is seen. There is no mass effect or midl ine shift. There is no evidence of acute intraparenchymal hemorrhage. No extra axial fluid collection s are seen. Hypoenhancing pituitary lesion measures 7 x 9 mm. Flow voids of the major intracranial arterial vessels are identified. The imaged portions of the para nasal sinuses, mastoid air cells, and orbits are unremarkable. IMPRESSION: Mass arising from the pituitary compatible with microadenoma. ACT 112: Negative or not required by law. Electronically signed by: Joaquin Walters M.D. 04/05/2024 2:09 PM
--- NOTE | 2024-04-05 16:56 | Hospitalist Progress Note ---
Date of Service April 05, 2024 Assessment & Plan (1) Syncope: Plan: per admitting service notes with addendum: 59-year-old female with past medical history significant for high cholesterol, orthostatic hypotension, De León's esophagus, fibromyalgia, complicated migraine, depression with anxiety, dizziness comes with recurrent syncopes. Patient was in the ER on March 12 with syncope workup with CT head and EKG was okay and she was discharged. She followed with PCP on March 14 and zio monitor was placed. Patient lives with her son and his . As per the son to get second opinion they went to [facility] and got admitted on March 16 and was discharged on March 18, 2024. As per discharge summary from [facility] did not reveal any arrhythmia or conduction abnormalities. Cardiology was consulted.Echo was normal. MRA head and neck no acute findings. Neurology was consulted and EEG was ordered. When being monitored in the EEG patient had 2 additional episodes of psychogenic nonepileptic attacks without any electrical activity suggestive of seizures. And was concluded that the patient has psychogenic's nonepileptic seizures and was discharged home to follow-up with psychiatrist. During admission at [facility] zio patch was removed to get MRI scans and was not able to place back at discharge due to insurance issues.' When she had zio it did show 3-4 runs of SVT which correlated with syncope episode but other patient reported episodes were correlated with normal sinus rhythm. But she had Zio patch only for 3 days. Family says she followed up with psychiatry and there is a plan to start on Prozac which she has not started yet. Couple of days ago she had another syncopal episode. Last night around 4 AM she was trying to get up from the bed and go to bathroom when she had another episode of feeling dizzy and passed out. When she fell she hit her head.Patient says she didn't passed out for long. Son says these episodes last for few seconds. Tonight after she fell she was able to get up herself and called her daughter in law.Son and daughter [id number] came and she seemed confused and she did not know where she was and family was worried about concussion and brought her to the hospital. By the time ambulance came her metal status was back to normal. Currently resting comfortably and hemodynamically stable. Complains of mild headache. Has some blurred visions. Has some chest pain and fluttering feeling. As per son patient getting chest pains on and off. Currently also complains of nausea and some shortness of breath. Appetite is okay. No difficulty swallowing. No fevers. No runny nose or sore throat or cough. No abdominal pain. Normal bowel and bladder movements. No incontinence or biting of her tongue during the episode., She had some shakiness of the right upper extremity during episode which happened before also as per son. Recurrent Syncope Adrenal insufficiency multiple episodes in recent several weeks workup at [facility] as mentioned in h and p unrevealing thought to be psychogenic non epileptic seizures and there is a plan to start Prozac. Currently on Effexor. question of svt during one episode 04/02 Oriented x 3, answering all questions CT head: Negative for acute process Check orthostatic vital signs Check cortisol level Monitor in telemetry Cardiology consulted 04/03 Positive orthostatic hypotension Cortisol level 1.4 Discussed with [facility] endocrinology service Recommend hydrocortisone 50 mg IV now, then 20 mg p.o. in the morning and 10 mg p.o. at 3 PM Having left-sided headache today Repeat CT head: Asymmetric prominence of the left aspect of the pituitary, suboptimally assessed by CT. Nonemergent pituitary protocol MRI could be obtained. Cardiology service consulted No arrhythmias per telemetry monitoring 04/[address] angiogram head and neck: No dissection or acute process Continue as needed pain meds Continue hydrocortisone 20 mg p.o. in a.m., 10 mg p.o. at [address] angiogram: Positive thyroid nodules Will need thyroid ultrasound and thyroid panel ordered 04/05 Clinically improved Blood pressure also improved discharge plan: Continue hydrocortisone p.o. 20 mg in the morning, 10 mg at 3 PM Advised to drink plenty of water, liberalize salt intake, continue PAOLO hose Please refer to endocrinology clinic as soon as possible for further workup Please order thyroid panel, thyroid ultrasound to evaluate for thyroid nodule seen on CAT scan of the neck Follow-up with cardiology clinic, including stress test as an outpatient Will report to [facility] Informed patient's absolutely no driving, until cleared by PCP and specialists Patient verbalized understanding and agreement Chest pains and shortness of breath resolved Chest pain resolved Troponins negative EKG no signs of acute ischemia or infarct ACS ruled out D-dimer negative Complex migraines Used to take Nurtec as needed but was told to stop At [facility]. currently on baclofen. And also seems to be on pregabalin. Pituitary adenoma contributing Refer to endocrinology service as soon as possible Hyperlipidemia on statin. De León's esophagus on Protonix Depression with anxiety on Effexor DVT prophylaxis SCDs for now disposition d/c home PCP in 1 week [employer] in 1 to 2 weeks Refer to endocrinology Admission and Anticipated Discharge Date Admission Date: April 02, 2024 Subjective Follow-up for recurrent syncope, renal insufficiency, etc. Seen resting in bed, comfortable, not in distress In good spirits States she feels much better overall Minimal intermittent headache, no nausea or vomiting, blurring of vision, neurologic symptoms Ambulate in the hallways, participated with PT today No issues, no dizziness, lightheadedness, presyncope or syncope States she feels better overall States she is ready for discharge today Review of Systems Review of Systems: all noted and negative except for above Physical Exam Physical Exam: General- oriented x 3, not in distress, speaks in sentences with no effort or accessory muscle use Eyes- anicteric Neck- no JVD Lungs- clear breath sounds bilaterally, no rales/wheezes Heart- normal rate, regular rhythm; no murmurs Abdomen- normal bowel sounds, nondistended, soft, nontender Extremities- no pretibial edema, no calf tenderness Neuro- alert, oriented x 3; no gross focal neurologic deficits Skin- warm & dry Results & Data Results & Data Vital Signs (Past 12 Hours) Vital Signs Temp Pulse Pulse Resp BP Pulse Ox O2 Del Method 04/05/24 15:09 36.5 C 79 18 142/84 H 99 Room Air 04/05/24 12:05 36.4 C L 76 18 152/86 H 97 Room Air 04/05/24 07:36 36.4 C L 62 18 148/91 H 94 Room Air 04/05/24 07:26 67 all noted and reviewed including below
--- NOTE | 2024-04-05 17:20 | Discharge Summary ---
Discharge Summary Date of Service April 05, 2024 Principal Dx & Hospital Course #1 = Principal Diagnosis (1) Syncope: per admitting service notes with addendum: 59-year-old female with past medical history significant for high cholesterol, orthostatic hypotension, De León's esophagus, fibromyalgia, complicated migraine, depression with anxiety, dizziness comes with recurrent syncopes. Patient was in the ER on March 12 with syncope workup with CT head and EKG was okay and she was discharged. She followed with PCP on March 14 and zio monitor was placed. Patient lives with her son and his . As per the son to get second opinion they went to [facility] and got admitted on March 16 and was discharged on March 18, 2024. As per discharge summary from [facility] did not reveal any arrhythmia or conduction abnormalities. Cardiology was consu lted.Echo was normal. MRA head and neck no acute findings. Neurology was consulted and EEG was ordered. When being monitored in the EEG patient had 2 additional episodes of psychogenic nonepileptic attacks without any electrical activity suggestive of seizures. And was concluded that the patient has psychogenic's nonepileptic seizures and was discharged home to follow-up with psychiatrist. During admission at [facility] zio patch was removed to get MRI scans and was not able to place back at discharge due to insurance issues.' When she had zio it did show 3-4 runs of SVT which correlated with syncope episode but other patient reported episodes were correlated with normal sinus rhythm. But she had Zio patch only for 3 days. Family says she followed up with psychiatry and there is a plan to start on Prozac which she has not started yet. Couple of days ago she had another syncopal episode. Last night around 4 AM she was trying to get up from the bed and go to bathroom when she had another episode of feeling dizzy and passed out. When she fell she hit her head.Patient says she didn't passed out for long. Son says these episodes last for few seconds. Tonight after she fell she was able to get up herself and called her daughter in law.Son and daughter [id number] came and she seemed confused and she did not know where she was and family was worried about concussion and brought her to the hospital. By the time ambulance came her metal status was back to normal. Currently resting comfortably and hemodynamically stable. Complains of mild headache. Has some blurred visions. Has some chest pain and fluttering feeling. As per son patient getting chest pains on and off. Currently also complains of nausea and some shortness of breath. Appetite is okay. No difficulty swallowing. No fevers. No runny nose or sore throat or cough. No abdominal pain. Normal bowel and bladder movements. No incontinence or biting of her tongue during the episode., She had some shakiness of the right upper extremity during episode which happened before also as per son. Recurrent Syncope Status post fall, head injury Concussion Adrenal insufficiency Pituitary adenoma multiple episodes in recent several weeks workup at [facility] as mentioned in h and p unrevealing thought to be psychogenic non epileptic seizures and there is a plan to start Prozac. Currently on Effexor. question of svt during one episode 04/02 already Oriented x 3, answering all questions CT head: Negative for acute process Check orthostatic vital signs Check cortisol level Monitor in telemetry Cardiology consulted 04/03 Positive orthostatic hypotension Cortisol level 1.4 Discussed with [facility] endocrinology service Recommend hydrocortisone 50 mg IV now, then 20 mg p.o. in the morning and 10 mg p.o. at 3 PM Having left-sided headache today Repeat CT head: Asymmetric prominence of the left aspect of the pituitary, suboptimally assessed by CT. Nonemergent pituitary protocol MRI could be obtained. Cardiology service consulted No arrhythmias per telemetry monitoring 04/[address] angiogram head and neck: No dissection or acute process Continue as needed pain meds Continue hydrocortisone 20 mg p.o. in a.m., 10 mg p.o. at 3 PM ACTH pending, Please follow-up CT angiogram: Positive thyroid nodules 04/05 Clinically improved Blood pressure also improved Ambulating with no problems discharge plan: Continue hydrocortisone p.o. 20 mg in the morning, 10 mg at 3 PM Advised to drink plenty of water, liberalize salt intake, continue PAOLO hose Please refer to endocrinology clinic as soon as possible for further workupOf adrenal insufficiency, pituitary adenoma Please order thyroid panel, thyroid ultrasound to evaluate for thyroid nodule seen on CAT scan of the neck Follow-up with cardiology clinic, including stress test as an outpatient Will report to [facility] Informed patient re: absolutely no driving, until cleared by PCP and specialists Patient verbalized understanding and agreement Chest pains and shortness of breath resolved Chest pain resolved Troponins negative EKG no signs of acute ischemia or infarct ACS ruled out D-dimer negative Complex migraines Used to take Nurtec as needed but was told to stop At [facility]. currently on baclofen. And also seems to be on pregabalin. Pituitary adenoma contributing Refer to endocrinology service as soon as possible Hyperlipidemia on statin. 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 daily in a.m., 10 mg p.o. at 3pm Admission HPI Per Admitting Provider 59-year-old female with past medical history significant for high cholesterol, orthostatic hypotension, De León's esophagus, fibromyalgia, complicated migraine, depression with anxiety, dizziness comes with recurrent syncopes. Patient was in the ER on March 12 with syncope workup with CT head and EKG was okay and she was discharged. She followed with PCP on March 14 and zio monitor was placed. Patient lives with her son and his . As per the son to get second opinion they went to [facility] and got admitted on March 16 and was discharged on March 18, 2024. As per discharge summary from [facility] did not reveal any arrhythmia or conduction abnormalities. Cardiology was consulted.Echo was normal. MRA head and neck no acute findings. Neurology was consulted and EEG was ordered. When being monitored in the EEG patient had 2 additional episodes of psychogenic nonepileptic attacks without any electrical activity suggestive of seizures. And was concluded that the patient has psychogenic's nonepileptic seizures and was discharged home to follow-up with psychiatrist. During admission at [facility] zio patch was removed to get MRI scans and was not able to place back at discharge due to insurance issues.' When she had zio it did show 3-4 runs of SVT which correlated with syncope episode but other patient reported episodes were correlated with normal sinus rhythm. But she had Zio patch only for 3 days. Family says she followed up with psychiatry and there is a plan to start on Prozac which she has not started yet. Couple of days ago she had another syncopal episode. Last night around 4 AM she was trying to get up from the bed and go to bathroom when she had another episode of feeling dizzy and passed out. When she fell she hit her head.Patient says she didn't passed out for long. Son says these episodes last for few seconds. Tonight after she fell she was able to get up herself and called her daughter in law.Son and daughter [id number] came and she seemed confused and she did not know where she was and family was worried about concussion and brought her to the hospital. By the time ambulance came her metal status was back to normal. Currently resting comfortably and hemodynamically stable. Complains of mild headache. Has some blurred visions. Has some chest pain and fluttering feeling. As per son patient getting chest pains on and off. Currently also complains of nausea and some shortness of breath. Appetite is okay. No difficulty swallowing. No fevers. No runny nose or sore throat or cough. No abdominal pain. Normal bowel and bladder movements. No incontinence or biting of her tongue during the episode., She had some shakiness of the right upper extremity during episode which happened before also as per son. Past medical history. As mentioned above. past surgical history. Colonoscopy and EGD. Injection of the Lumbar spine. Lumbar spine fusions. Tonsillectomy. Total hysterectomy. Social history. . No smoking. No alcohol. No drug use. Family history. Sister had breast cancer. Mother has glaucoma. Heart attack. Heart failure. Thyroid disorder. Admission Exam Per Admitting Provider General- Not in distress Head- mild bruise seen on left forehead. Eyes- PERRL. ENT- oropharynx clear Neck- supple, no JVD. Lungs- clear to auscultation no wheezing or crackles. Heart- regular rate and rhythm; no murmur, no gallop. Abdomen- normal bowel sounds, soft, nontender, no distension. Extremities- no pretibial edema, no erythema seen. Neuro- alert, oriented PERRL, no facial palsy; no dysarthria; motor 5/5 bilaterally Skin- warm & dry Discharge Exam General- oriented x 3, not in distress, speaks in sentences with no effort or accessory muscle use Eyes- anicteric Neck- no JVD Lungs- clear breath sounds bilaterally, no rales/wheezes Heart- normal rate, regular rhythm; no murmurs Abdomen- normal bowel sounds, nondistended, soft, nontender Extremities- no pretibial edema, no calf tenderness Neuro- alert, oriented x 3; no gross focal neurologic deficits Skin- warm & dry Updated Medication List Medication Instructions Recorded Confirmed Type aspirin 81 mg tablet,delayed 81 mg PO DAILY 04/02/24 04/02/24 History release atorvastatin 20 mg tablet 20 mg PO DAILY 04/02/24 04/02/24 History baclofen 20 mg tablet 20 mg PO UD 04/02/24 04/02/24 History pantoprazole 40 mg tablet,delayed 40 mg PO DAILY 04/02/24 04/02/24 History release pregabalin 225 mg capsule 225 mg PO BID 04/02/24 04/02/24 History venlafaxine 150 mg 150 mg PO DAILY 04/02/24 04/02/24 History capsule,extended release 24 hr hydrocortisone 10 mg tablet 10 mg PO Q24H 30 days #30 tabs 04/05/24 Rx (Cortef) hydrocortisone 10 mg tablet 20 mg (2 x 10 mg) PO QAM 30 days 04/05/24 Rx (Cortef) #60 tabs Hospital Stay Data Consultations 04/02/24 10:23 Consult Cardiology Routine Diagnostic Imagining Performed Laboratory Results WBC 6.60 K/ul (4.8-10.8) 04/03/24 07:06 RBC 4.00 M/uL (4.20-5.40) L 04/03/24 07:06 Hgb 11.7 g/dl (12.0-16.0) L 04/03/24 07:06 Hct 36.1 % (37.0-47.0) L 04/03/24 07:06 MCV 90.3 fL (80.0-100.0) 04/03/24 07:06 MCH 29.3 pg (25.0-34.0) 04/03/24 07:06 MCHC 32.4 g/dL (32.0-36.0) 04/03/24 07:06 RDW Std Deviation 40.9 fL (36.4-46.3) 04/03/24 07:06 RDW Coeff of Delmi 12.3 % (11.5-14.5) 04/03/24 07:06 Plt Count 181 K/uL (130-400) 04/03/24 07:06 MPV 11.9 fL (9.4-12.4) 04/03/24 07:06 Immature Gran % (Auto) 0.2 % 04/03/24 07:06 Neut % (Auto) 53.3 % 04/03/24 07:06 Lymph % (Auto) 37.3 % 04/03/24 07:06 [place] % (Auto) 8.6 % 04/03/24 07:06 Eos % (Auto) 0.3 % 04/03/24 07:06 Baso % (Auto) 0.3 % 04/03/24 07:06 Neut # (Auto) 3.52 K/uL (1.40-6.50) 04/03/24 07:06 Lymph # (Auto) 2.46 K/uL (1.20-3.40) 04/03/24 07:06 [place] # (Auto) 0.57 K/uL (0.11-0.59) 04/03/24 07:06 Eos # (Auto) 0.02 K/uL (0.00-0.50) 04/03/24 07:06 Baso # (Auto) 0.02 K/uL (0.00-0.20) 04/03/24 07:06 Immature Gran # (Auto) 0.01 K/uL (0.01-0.20) 04/03/24 07:06 D-Dimer Cancelled 04/02/24 10:33 Sodium 142 mmol/L (136-145) 04/03/24 07:06 Potassium 3.9 mmol/L (3.5-5.1) 04/03/24 07:06 Chloride 109 mmol/L (98-107) H 04/03/24 07:06 Carbon Dioxide 28 mmol/L (21-32) 04/03/24 07:06 Anion Gap 5 (3-11) 04/03/24 07:06 BUN 13 mg/dl (6-23) 04/03/24 07:06 Creatinine 0.65 mg/dl (0.6-1.2) 04/03/24 07:06 Est Cr Clr Drug Dosing 108.3 ml/min 04/03/24 07:06 Est GFR ( Amer) 113.4 ml/min 04/03/24 07:06 Est GFR (Non-Af Amer) 97.9 ml/min 04/03/24 07:06 BUN/Creatinine Ratio 20.0 (10-20) 04/03/24 07:06 Glucose 92 mg/dl (70-99(Fasting)) 04/03/24 07:06 Calcium 8.2 mg/dl (8.6-10.3) L 04/03/24 07:06 Magnesium 1.9 mg/dl (1.7-2.4) 04/03/24 07:06 Total Bilirubin 0.2 mg/dl (0.2-1.0) 04/02/24 04:57 AST 14 U/L (13-39) 04/02/24 04:57 ALT 11 U/L (7-52) 04/02/24 04:57 Alkaline Phosphatase 74 U/L (34-104) 04/02/24 04:57 Troponin I High Sens < 2.3 pg/ml (0-14) 04/02/24 22:24 Total Protein 6.9 gm/dl (6.0-8.3) 04/02/24 04:57 Albumin 3.9 gm/dl (3.4-5.0) 04/02/24 04:57 Globulin 3.0 gm/dl (2.5-4.0) 04/02/24 04:57 Albumin/Globulin Ratio 1.3 (0.9-2) 04/02/24 04:57 Random Cortisol 7.75 mcg/dl 04/03/24 09:12 Cortisol AM Sample 1.44 mcg/dl (6.2-22.6) L 04/03/24 07:06 Urine Color Yellow 04/02/24 16:52 Urine Appearance Clear (Clear) 04/02/24 16:52 Urine pH 8.5 (4.5-7.5) H 04/02/24 16:52 Ur Specific [place] 1.010 (1.000-1.030) 04/02/24 16:52 Urine Protein Negative (Negative) 04/02/24 16:52 Urine Glucose (UA) Negative (Negative) 04/02/24 16:52 Urine Ketones Negative (Negative) 04/02/24 16:52 Urine Blood Negative (Negative) 04/02/24 16:52 Urine Nitrite Negative (Negative) 04/02/24 16:52 Urine Bilirubin Negative (Negative) 04/02/24 16:52 Urine Urobilinogen Negative (Negative) 04/02/24 16:52 Ur Leukocyte Esterase Negative (Negative) 04/02/24 16:[address] 04/02/24 04:52 Exam(s): CT C SPINE EXAM: CT Cervical Spine Without Intravenous Contrast CLINICAL HISTORY: Reason for exam: trauma/syncope. TECHNIQUE: Axial computed tomography images of the cervical spine without intravenous contrast. CTDI is 24.86 mGy and DLP is 575.08 mGy-cm. Automated exposure control was utilized for the study. A dose lowering technique was utilized adhering to the principles of ALARA. COMPARISON: No relevant prior studies available. FINDINGS: Vertebrae: Unremarkable. No acute fracture. Discs/spinal canal/neural foramina: No acute findings. No spinal canal stenosis. Mild spondylotic spurring at multiple levels. Soft tissues: Unremarkable. IMPRESSION: Normal cervical spine CT. Electronically signed by: Omar Desai MD 04/02/24 05:46 AM 04/02/24 EXAM: CT Head Without Intravenous Contrast CLINICAL HISTORY: Reason for exam: syncope/trauma. TECHNIQUE: Axial computed tomography images of the head/brain without intravenous contrast. CTDI is 36.67 mGy and DLP is 624.41 mGy-cm. Automated exposure control was utilized for the study. A dose lowering technique was utilized adhering to the principles of ALARA. COMPARISON: No relevant prior studies available. FINDINGS: Brain: Unremarkable. No hemorrhage. No significant white matter disease. No edema. Ventricles: Unremarkable. No ventriculomegaly. Bones/joints: Unremarkable. No acute fracture. Soft tissues: Unremarkable. Sinuses: Unremarkable as visualized. No acute sinusitis. Mastoid air cells: Unremarkable as visualized. No mastoid effusion. IMPRESSION: Normal head/brain CT. Electronically signed by: Omar Desai MD 04/02/24 05:44 AM Chest X-Ray 04/02/24 08:19 XR chest 1V portable CLINICAL HISTORY: Shortness of breath. COMPARISON STUDY: Chest radiograph January 22, 2019. Chest CT April 21, 2023. FINDINGS: Lung volumes are normal. Lungs are clear. There is no pneumothorax or pleural effusion. Cardiac size is normal. Mediastinal contours are normal. There is no evidence for pulmonary edema. IMPRESSION: No acute cardiopulmonary findings. ACT 112: Negative or not required by law. Electronically signed by: Tommie Jean-Baptiste M.D. 04/02/2024 9:[address] 04/03/24 10:06 CT OF THE HEAD WITHOUT CONTRAST CLINICAL HISTORY: headache, s/p fall, head injury COMPARISON STUDY: MRI of the brain April 21, [address] April 02, 2024. CT DOSE: 580.53 mGy.cm TECHNIQUE: Helical axial images of the head were obtained without IV contrast. Automated exposure control was utilized for the study. A dose lowering technique was utilized adhering to the principles of ALARA. FINDINGS: No acute intracranial hemorrhage, midline shift or mass effect is present. The ventricular system is unremarkable. Asymmetric prominence of the left aspect of the pituitary is present. The basal cisterns are patent. No extra-axial collections are present. There are no findings to suggest acute dural sinus thrombosis or acute territorial infarct. No significant calvarial abnormalities are present. Visualized portions of the sinuses and mastoid air cells are clear. IMPRESSION: 1. No acute intracranial findings. 2. No calvarial fractures. 3. Asymmetric prominence of the left aspect of the pituitary, suboptimally assessed by CT. Nonemergent pituitary protocol MRI could be obtained. ACT 112: Negative or not required by law. Electronically signed by: Tommie Jean-Baptiste M.D. 04/03/2024 10:52 AM Head CTA 04/04/24 15:29 CT angio head w con CLINICAL HISTORY: headache, s/p fall, r/o dissection TECHNIQUE: CT angiography of the head was performed following intravenous administration of iodinated contrast. Coronal and sagittal MIPS were obtained from the axial data set and were submitted for review. Automated dose lowering techniques and/or adjustment according to patient size were utilized for this examination. All measurements were calculated based on NASCET criteria. Comparison: Comparison is made to CT head 04/03/2024 FINDINGS: CTA Head: The anterior and posterior cerebral circulations are patent. No hemodynamically significant stenosis, aneurysm, dissection, or arteriovenous malformation is shown. IMPRESSION: No occlusion, hemodynamically significant stenosis, aneurysm, dissection, or arteriovenous malformation in the major intracranial arteries. Assessment of stenosis of the internal carotid arteries is based on NASCET criteria. ACT 112: Negative or not required by law. Electronically signed by: Joaquin Walters M.D. 04/04/2024 5:33 PM Neck CTA 04/04/24 15:29 CT angio neck with con CLINICAL HISTORY: headache, s/p fall, r/o dissection TECHNIQUE: CT angiography of the neck was performed following intravenous administration of iodinated contrast. Coronal and sagittal MIPS were obtained from the axial data set and were submitted for review. Automated dose lowering techniques and/or adjustment according to patient size were utilized for this examination. All measurements were calculated based on NASCET criteria. CT DOSE: 489.52 mGy.cm Comparison: Comparison is made to CTA neck 04/21/2023 FINDINGS: A thyroid nodule measures 21 mm. CTA Neck: A 3 vessel aortic arch is shown. There is no significant atherosclerotic plaque in the aortic arch or the origins of the innominate, left common carotid, and left subclavian arteries. The common carotid, external c arotid, cervical segments of the internal carotid arteries, and the cervical segments of the vertebral arteries are patent without hemodynamically significant stenosis. The left vertebral artery is dominant. IMPRESSION: 1. No occlusion, hemodynamically significant stenosis, or dissection in the major cervical arteries. 2. Thyroid nodules are seen. If not previously evaluated, nonemergent thyroid ultrasound can be performed for further evaluation. Assessment of stenosis of the internal carotid arteries is based on NASCET criteria. ACT 112: Positive. There are findings on this exam that require communication between the performing entity and the patient following Patient Test Result Information Act ([place] Act 112) guidelines. Electronically signed by: Joaquin Walters M.D. 04/04/2024 4:51 PM Pituitary MRI 04/05/24 08:54 MR brain pituitary wo/w con CLINICAL HISTORY: asymmetric pituitary, adrenal insufficiency TECHNIQUE: Multiplanar and multisequence MR images of the brain were obtained prior to and following administration of gadolinium contrast. Comparison: Comparison is made to MRI brain 04/21/2023 and CTA head and neck 04/04/2024 FINDINGS: No abnormal restricted diffusion is identified. The white matter is unremarkable. The ventricular system is normal in appearance. No mass or abnormal enhancement is seen. There is no mass effect or midline shift. There is no evidence of acute intraparenchymal hemorrhage. No extra axial fluid collections are seen. Hypoenhancing pituitary lesion measures 7 x 9 mm. Flow voids of the major intracranial arterial vessels are identified. The imaged portions of the paranasal sinuses, mastoid air cells, and orbits are unremarkable. IMPRESSION: Mass arising from the pituitary compatible with microadenoma. ACT 112: Negative or not required by law. Electronically signed by: Joaquin Walters M.D. 04/05/2024 2:09 PM Pending Results Patient Have Any Pending Studies at Discharge: Yes Discharge Instructions Given to Patient (Per Discharging Provider) PLEASE REFER TO YOUR NEW MEDICATION LIST AND FOLLOW INSTRUCTIONS CAREFULLY. YOUR NEW MEDICATIONS INCLUDE: Hydrocortisone hormone-for adrenal insufficiency Always remain well-hydrated with water. Liberalize salt intake. Always use Leg compression stockings. Always get up slowly, ambulate carefully. PLEASE CALL YOUR PRIMARY CARE PHYSICIAN OR RETURN TO THE ER IF WITH WORSENING OF SYMPTOMS, INCLUDING Dizziness, lightheadedness, headaches, nausea or vomiting, blurring of vision, etc. FOLLOW UP WITH PRIMARY CARE PHYSICIAN In 1 week. Follow-up with breastfeeding peer counselor 1-2 weeks. Your primary care physician will be referring you to the endband cutter hand. Total Time Total Time Spent Total Time Spent (In Minutes): 55 minutes
--- NOTE | 2024-04-05 22:57 | Electrocardiogram Report ---
Test Reason : Blood Pressure : / mmHG Vent. Rate : 071 BPM Atrial Rate : 071 BPM P-R Int : 156 ms QRS Dur : 092 ms QT Int : 432 ms P-R-T Axes : 045 017 022 degrees QTc Int : 469 ms Normal sinus rhythm Normal ECG When compared with ECG of 03-APR-2024 04:43, No significant change was found Confirmed by Estiven Gordon ([id number]) on 04/05/2024 10:57:47 PM Referred By: REFERRED SELF Confirmed By:Estiven Gordon
== END 2024-04-05 18:47 | disposition home or self-care (01) | DRG 645 ==
LOC: 2S 04:41 → ED 04:41 → 2S 09:34